=== PATIENT | female | born 1930 | race Caucasian/White ===

== ENCOUNTER 2017-02-22 16:11 | Emergency (ER) | payer OTHER ==
[~2017-02-22] VITALS: Ht 142.2 cm; Wt 53.0 kg
[~2017-02-22 16:11] MED LIST: CLC100 PO; FLX10 PO; FOLI1TAB7 PO; HYDR0.5T PO; LDDP5 TD; METO1TAB68 PO; OXYC1TAB3 PO; SNK PO
[2017-02-22 16:18] VITALS: TEMP 37; Ht 142.2 cm; Wt 53.0 kg
[2017-02-22] MEDS ORDERED: LEVO75TA5 PO (16:28)
[2017-02-22] MEDS ORDERED: METH2.5T PO (16:31)
[2017-02-22] MEDS ORDERED: OXYCODONE/ACETAMINOPHEN 5-325 TAB PO ONE (17:00)
[2017-02-22] MEDS ORDERED: GABA-112 PO (17:24)
[2017-02-22] MEDS ORDERED: HYDR200T5 PO (17:24)
[2017-02-22] MEDS ORDERED: MISC4CAP PO (17:24)
[2017-02-22] MEDS ORDERED: ACET-1256 PO (17:31)
[2017-02-22] MEDS ORDERED: TEMA7.5C13 PO (17:31)
[2017-02-22] MEDS ORDERED: SULF800T23 PO (17:31)
[2017-02-22] MEDS ORDERED: TPRSR/100 PO (17:31)
--- NOTE | 2017-02-22 17:33 | EMERGENCY ROOM VISIT NOTE ---
History Report prepared by [place]: Natalee Renae Under the Supervision of: Dr. Elfego Fernandes M.D. First contact with patient: 16:48 Chief Complaint: BACK PAIN Stated Complaint: BACK PAIN History of Present Illness The patient is an 86 year old female who presents to the Emergency Room with complaints of persistent lower back pain starting yesterday. The patient was bending over to vomit at the toilet. She almost fell head first, but was able to catch herself by holding onto the grab bar. She thinks that she might have injured her back. She currently rates her discomfort as a 10/10 in severity. She had a prior T5 and T6 compression fracture and deformity of T12 on March 09, 2016. The pain is in her lower back on both sides. The patient was diagnosed with a UTI 2 days ago and has been on Bactrim which was causing her nausea. She was given oxycodone 3 hours ago. She denies any abdominal pain or bowel movement changes. She has not been eating well for the past 3-4 days because of the nausea. She had a lesion on her nose frozen last week. Source of History: patient Onset: yesterday Position: back (lower) Symptom Intensity: 10/10 Quality: other (persistent) Timing: other (injury, pain) Associated Symptoms: + nausea, No abdominal pain Note: Pt denies changes in bowel movement. Review of Systems All systems have been listed, reviewed, and are negative other than those previously mentioned. Please see Additional Medical History Sheet. Past Medical & Surgical Medical Problems: (1) Diabetes (2) Dyslipidemia (3) Hypertension (4) Hypothyroidism (5) Intractable back pain (6) Thoracic compression fracture (7) UTI (urinary tract infection) Family History Cancer Diabetes mellitus Heart disease Hypertension Social History Smoking Status: Never Smoker Alcohol Use: none Drug Use: none Marital Status: Housing Status: assisted living Occupation Status: retired Current/Historical Medications Scheduled Folic Acid (Folvite), 1 MG PO TID Gabapentin (Neurontin), 100 MG PO TID Hydroxychloroquine Sulfate (Plaquenil), 200 MG PO BID Levothyroxine Sodium (Levothyroxine Sodium), 75 MCG PO DAILY Methotrexate (Methotrexate), 10 MG PO WK Metoprolol Succinate (Metoprolol Succinate ER), 100 MG PO DAILY Neomycin-Bacitracin Zn-Polymyx (Triple Antibiotic), 1 APPLN TOP Wound Care Probiotic Product (Align), 4 MG PO DAILY Sitagliptin Phosphate (Januvia), 100 MG PO DAILY Sulfa/Trimethoprim (Bactrim Ds 800MG/160MG), 1 TAB PO BID Temazepam (Temazepam), 7.5 MG PO QPM Scheduled PRN Acetaminophen (Tylenol), 500-1,000 MG PO BID PRN for Breakthrough Pain Artificial Saliva (Biotene Moisturizing Mout), 1 SPRAY OR UD PRN for Dryness Cyclobenzaprine Hcl (Flexeril), 5 MG PO TID PRN for Muscle Spasm Dextromethorphan-Guaifenesin (Diabetic Siltussin-Dm), 10 ML PO Q4H PRN for Cough Docusate Sodium (Docqlace), 100 MG PO DAILY PRN for Constipation Bnfyniwm-Bxehsgytgbtc-Eqbpwjkw (Artificial Tears), 1 DROP OP UD PRN for Dry Eye( s) Lidocaine (Lidocaine), 1 PATCH TOP DAILY PRN for Posthepetic Neuralgia Loperamide Hcl (Imodium), 2 MG PO TID PRN for Diarrhea Menthol-Methyl Salicylate (Chanel (Thera-Gesic), 1 APPLN TOP UD PRN for Soreness Nystatin (Topical) (Nystop), 1 APPLN TOP BID PRN for Antifungal Oxycodone HCl (Oxycodone HCl), 5 MG PO Q6H PRN for Pain Sennosides-Docusate Sodium (Sennalax-S), 2 TBS PO HS PRN for Constipation Allergies Coded Allergies: Amoxicillin (Unverified Allergy, Mild, RASH, 03/09/16) Naproxen (Unverified Allergy, Mild, RASH, 03/09/16) Physical Exam Vital Signs Date Time Temp Pulse Resp B/P (MAP) Pulse Ox O2 Delivery O2 Flow Rate FiO2 02/22/17 20:05 75 20 172/103 98 Room Air 02/22/17 18:11 76 18 194/95 90 Room Air 02/22/17 16:18 37.0 75 20 180/79 92 Room Air Physical Exam GENERAL: Patient awake, alert, oriented x 3. Patient follows commands. Patient does not appear toxic. Patient is adequately hydrated and well- nourished. SKIN: No erythema, pallor, cyanosis or rash HEENT: Normal head, pupils equal, reactive to light and accommodation. Small frozen lesion on the bridge of nose. Neck: Without adenopathy, no neck vein distention. LUNGS: Clear to auscultation. No wheezes, no rales, no rhonchi. HEART: No murmurs. No gallops. No rubs ABDOMEN: Soft, nontender. No masses, no rebound, no hepatomegaly or splenomegaly. BACK: Tenderness over the midlumbar spine. EXTREMITIES: SLR positive at 30 degrees on right. No signs of trauma. No pedal or pretibial edema. No calf or thigh tenderness. NEUROLOGIC: Cranial nerves II-XII within normal limits. No gross motor sensory function deficits. Medical Decision & Procedures ER Provider Diagnostic Interpretation: Radiology results as stated below per my review and radiologist interpretation: CT SCAN OF THE LUMBAR SPINE WITHOUT IV CONTRAST CLINICAL HISTORY: Fall. Back pain. COMPARISON STUDY: Abdominal CT dated 03/09/2016. TECHNIQUE: CT scan of the lumbar spine is performed from the lower thoracic spine to the sacrum. Images are reviewed in the axial, sagittal, and coronal planes. IV contrast was not administered for this examination. CT DOSE: 588.74 mGy.cm FINDINGS: The skeletal structures are osteopenic. A severe compression deformity of T12 is unchanged from previous. Fragments are retropulsed by up to 6 mm. This causes mild acquired compromise of the central canal at this level. There is a minimal inferior endplate compression deformity of L4. No retropulsed fragments are identified and there is only minimal loss of height. No additional acute fracture is seen. Vertebral body height is otherwise maintained throughout the lumbar spine. Alignment is preserved. The transverse and spinous processes appear intact. There is no evidence of spondylolysis. The intervertebral disc spaces appear maintained. There is no evidence of large disc herniation. Minimal facet arthropathy seen in the lower lumbar region. The visualized sacrum and bony pelvis appear intact. There is fatty atrophy of the paraspinous musculature. Moderate to advanced calcification is noted in the abdominal aorta. The heart is enlarged. The kidneys demonstrate cortical atrophy. IMPRESSION: 1. There is a mild acute inferior endplate compression fracture of L4. There is only minimal loss of height. No retropulsed fragments are identified. 2. No additional acute fracture is seen. 3. A severe chronic compression deformity of T12 is unchanged from previous. 4. Osteopenia and minimal degenerative change as above. Electronically signed by: Heath Blakely M.D. 02/22/2017 5:56 PM Dictated Date/Time: 02/22/2017 5:50 PM Laboratory Results 02/22/17 20:01 02/22/17 20:01 Test 02/22/17 18:05 02/22/17 20:01 Urine Color YELLOW Urine Appearance CLEAR (CLEAR) Urine pH 7.0 (4.5-7.5) Urine Specific Geraldine 1.010 (1.000-1.030) Urine Protein NEG (NEG) Urine Glucose (UA) NEG (NEG) Urine Ketones NEG (NEG) Urine Occult Blood NEG (NEG) Urine Nitrite NEG (NEG) Urine Bilirubin NEG (NEG) Urine Urobilinogen NEG (NEG) Urine Leukocyte Esterase NEG (NEG) Red Blood Count 4.14 M/uL (4.2-5.4) Mean Corpuscular Volume 90.8 fL (80-100) Mean Corpuscular Hemoglobin 31.6 pg (25-34) Mean Corpuscular Hemoglobin Concent 34.8 g/dl (32-36) RDW Standard Deviation 48.2 fL (36.4-46.3) RDW Coefficient of Variation 14.8 % (11.5-14.5) Mean Platelet Volume 12.0 fL (7.4-10.4) Platelet Estimate DECREASED Anion Gap 8.0 mmol/L (3-11) Est Creatinine Clear Calc Drug Dose 28.4 ml/min Estimated GFR () 59.9 Estimated GFR (Non- 51.7 BUN/Creatinine Ratio 12.3 (10-20) Calcium Level 8.9 mg/dl (8.5-10.1) Laboratory results as stated above per my review. Medications Administered Medications (Trade) Dose Ordered Sig/Alejandra Route Start Time Stop Time Status Last Admin Dose Admin Oxycodone/ Acetaminophen (Percocet 5-325mg Tab) 1 tab ONE ONCE PO 02/22/17 17:00 02/22/17 17:01 DC 02/22/17 17:12 1 TAB ED Course 1649: Past medical records reviewed. The patient was evaluated in room B7. A complete history and physical examination was performed. 1700: Oxycodone/Acetaminophen 1 tab PO. 1826: I reevaluated the patient. I updated the family on the results. I discussed the results and treatment plan with them. They verbalized understanding and agreement. They request the patient be placed in [facility]. The continuous pillowcase cutter has been notified. 1840: [facility] requests lab work be completed. 2030: The patient will be transferred to [facility] for further care. Medical Decision Nurses notes reviewed. Medical history sheet reviewed. Differential diagnosis includes but is not limited to: musculoskeletal pain, fracture, dislocation, degenerative joint disease. The patient is here with pain similar to what she experienced in the past with fractures of her thoracic spine. CT today reveals a new fracture of L4. The patient has a pre-existing fracture of T12. I discussed care with the patient and her daughter. Her daughter does not believe that she can care for herself at the current assisted living situation. The patient was agreeable to admission at [facility]. Labs were obtained. Please see above. The patient was transported to [facility] after their acceptance. Medication Reconciliation: I attest that I have personally reviewed the patient' s current medication list. Blood Pressure Screening: Patient was found to have an elevated blood pressure and was referred to their primary doctor for recheck and further treatment. Impression Primary Impression: Compression fracture of L4 lumbar vertebra Scribe Attestation The scribe's documentation has been prepared under my direction and personally reviewed by me in its entirety. I confirm that the note above accurately reflects all work, treatment, procedures, and medical decision making performed by me. Departure Information Dispostion Transfer Acute Care Facility Referrals Keron Merino M.D. (PCP) Patient Instructions My [facility]
[2017-02-22] MEDS ORDERED: DOCU100C22 PO (17:39)
[2017-02-22] MEDS ORDERED: CYCL5TAB PO (17:39)
[2017-02-22] MEDS ORDERED: GLYCDRO6 OP (17:39)
[2017-02-22] MEDS ORDERED: LIDO1PAD2 TOP (17:47)
[2017-02-22] MEDS ORDERED: DEXTLIQ PO (17:47)
[2017-02-22] MEDS ORDERED: IMD/2 PO (17:47)
[2017-02-22] MEDS ORDERED: ARTISPR OR (17:47)
[2017-02-22] MEDS ORDERED: NYST100010 TOP (17:51)
[2017-02-22] MEDS ORDERED: OXYC-609 PO (17:51)
[2017-02-22] MEDS ORDERED: SENN8.6T15 PO (17:54)
[2017-02-22] MEDS ORDERED: LINICRE TOP (17:54)
[2017-02-22] MEDS ORDERED: NEOMOIN76 TOP (17:54)
--- NOTE | 2017-02-22 17:58 | DIAGNOSTIC IMAGING REPORT ---
CT SCAN OF THE LUMBAR SPINE WITHOUT IV CONTRAST CLINICAL HISTORY: Fall. Back pain. COMPARISON STUDY: Abdominal CT dated 03/09/2016. TECHNIQUE: CT scan of the lumbar spine is performed from the lower thoracic spine to the sacrum. Images are reviewed in the axial, sagittal, and coronal planes. IV contrast was not administered for this examination. CT DOSE: 588.74 mGy.cm FINDINGS: The skeletal structures are osteopenic. A severe compression deformity of T12 is unchanged from previous. Fragments are retropulsed by up to 6 mm. This causes mild acquired compromise of the central canal at this level. There is a minimal inferior endplate compression deformity of L4. No retropulsed fragments are identified and there is only minimal loss of height. No additional acute fracture is seen. Vertebral body height is otherwise maintained throughout the lumbar spine. Alignment is preserved. The transverse and spinous processes appear intact. There is no evidence of spondylolysis. The intervertebral disc spaces appear maintained. There is no evidence of large disc herniation. Minimal facet arthropathy seen in the lower lumbar region. The visualized sacrum and bony pelvis appear intact. There is fatty atrophy of the paraspinous musculature. Moderate to advanced calcification is noted in the abdominal aorta. The heart is enlarged. The kidneys demonstrate cortical atrophy. IMPRESSION: 1. There is a mild acute inferior endplate compression fracture of L4. There is only minimal loss of height. No retropulsed fragments are identified. 2. No additional acute fracture is seen. 3. A severe chronic compression deformity of T12 is unchanged from previous. 4. Osteopenia and minimal degenerative change as above. Electronically signed by: Heath Blakely M.D. 02/22/2017 5:56 PM Dictated Date/Time: 02/22/2017 5:50 PM
[2017-02-22 18:21] LABS: URINE APPEARANCE CLEAR (CLEAR); URINE BILIRUBIN NEG (NEG); URINE COLOR YELLOW; URINE NITRITE NEG (NEG); UROBILINOGEN NEG (NEG); ZZURINE CULT IF INDIC CATH NO
[2017-02-22 18:22] LABS: MANUAL MICROSCOPIC REQUIRED? NO; REVIEW REQ? NO
[2017-02-22 20:05] VITALS: BP 172/103; PULSE 75; O2SAT 98
[2017-02-22 20:33] LABS: BUN/CREATININE RATIO 12.3 (10-20); CALCIUM 8.9 mg/dl (8.5-10.1); POTASSIUM 4.1 mmol/L (3.5-5.1)
[2017-02-22 20:41] LABS: HEMATOCRIT 37.6 % (37-47); MEAN CELL VOLUME 90.8 fL (80-100); MEAN CORPUSCULAR HEMOGLOBIN 31.6 pg (25-34); MEAN CORPUSCULAR HGB CONC 34.8 g/dl (32-36); PLATELET COUNT 108 K/uL (130-400); PLT ESTIMATE DECREASED; RED BLOOD COUNT 4.14 M/uL (4.2-5.4); WHITE BLOOD COUNT 9.55 K/uL (4.8-10.8)
[2017-02-22] MEDS ORDERED: SITA100T3 PO (20:55)
[2017-03-27] MEDS ORDERED: CALCTAB7 PO (11:04)
[2017-03-27] MEDS ORDERED: INSDGIPEN SC (11:04)
[2017-03-27] MEDS ORDERED: OXYC-609 PO (11:04)
[2017-03-27] MEDS ORDERED: ASPEC81 PO (11:04)
[2017-03-27] MEDS ORDERED: RXC5 PO (11:34)
== END 2017-02-22 21:00 | disposition short-term general hospital (02) ==
LOC: C.EDB 16:11
DX: S32.049A Unspecified fracture of fourth lumbar vertebra, initial encounter for closed fracture (principal); X58.XXXA Exposure to other specified factors, initial encounter; E11.9 Type 2 diabetes mellitus without complications; I10 Essential (primary) hypertension; E03.9 Hypothyroidism, unspecified; Z87.81 Personal history of (healed) traumatic fracture; N39.0 Urinary tract infection, site not specified; Z79.899 Other long term (current) drug therapy; Z88.1 Allergy status to other antibiotic agents; Z88.8 Allergy status to other drugs, medicaments and biological substances; Z80.9 Family history of malignant neoplasm, unspecified; Z83.3 Family history of diabetes mellitus; Z82.49 Family history of ischemic heart disease and other diseases of the circulatory system

== ENCOUNTER 2017-03-23 17:38 | Inpatient (IN) | payer OTHER ==
[~2017-03-23] VITALS: Ht 142.2 cm; Wt 53.3 kg
[~2017-03-23 17:38] MED LIST changes: +ACET-1256 PO; +ARTISPR OR; -CLC100 PO; +CYCL5TAB PO; +DEXTLIQ PO; +DOCU100C22 PO; -FLX10 PO; +GABA-112 PO; +GLYCDRO6 OP; -HYDR0.5T PO; +HYDR200T5 PO; +IMD/2 PO; -LDDP5 TD; +LEVO75TA5 PO; +LIDO1PAD2 TOP; +LINICRE TOP; +METH2.5T PO; -METO1TAB68 PO; +MISC4CAP PO; +NEOMOIN76 TOP; +NYST100010 TOP; +OXYC-609 PO; -OXYC1TAB3 PO; +SENN8.6T15 PO; +SITA100T3 PO; -SNK PO; +SULF800T23 PO; +TEMA7.5C13 PO; +TPRSR/100 PO
[2017-03-23] MEDS ORDERED: CZR25 PO (17:59)
[2017-03-23] MEDS ORDERED: MRLP527 PO (17:59)
[2017-03-23] MEDS ORDERED: ONDANSETRON INJ 2 MG/ML 2 ML VIAL IV STA (18:15)
[2017-03-23] MEDS: HYDROmorphone INJ 0.5 MG/0.5 ML SYR IV PRN ×2 (18:22→19:53)
--- NOTE | 2017-03-23 19:01 | DIAGNOSTIC IMAGING REPORT ---
CHEST ONE VIEW PORTABLE CLINICAL HISTORY: Trauma trauma COMPARISON STUDY: 03/09/2016 FINDINGS: Mild cardiomegaly. Lungs are clear. Deformity left humeral head considered old. IMPRESSION: No acute process. The above report was generated using voice recognition software. It may contain grammatical, syntax or spelling errors. Electronically signed by: Tommy Ness M.D. 03/23/2017 7:00 PM Dictated Date/Time: 03/23/2017 6:59 PM
--- NOTE | 2017-03-23 19:05 | DIAGNOSTIC IMAGING REPORT ---
LEFT TIBIA AND FIBULA 2 VIEWS CLINICAL HISTORY: Left leg deformity. FINDINGS: AP and crosstable lateral portable views of the left tibia and fibula are obtained. No prior studies are available for comparison at the time of dictation. The examination is performed through a splint, obscuring fine bony detail. The skeletal structures are osteopenic. There is a fracture through the fibular head with medial distraction of the distal fragment by approximately 8 mm. There is a comminuted and horizontally oriented fracture through the proximal tibial metaphysis. There is approximately 4 mm of medial offset of the distal fragment as well as mild apex volar angulation. There is no clear intra-articular extension. Overlying soft tissue edema is noted. The knee and ankle joints are grossly maintained. There is a large plantar calcaneal enthesophyte. IMPRESSION: Proximal tibial and fibular fractures as above with overlying soft tissue edema. Electronically signed by: Heath Blakely M.D. 03/23/2017 7:03 PM Dictated Date/Time: 03/23/2017 7:00 PM
[2017-03-23 19:24] LABS: BASO % 0.2 %; BASO ABS # 0.02 K/uL (0-0.2); COMPLETE YES; EOS % 1.1 %; HEMATOCRIT 40.8 % (37-47); IG% 0.4 %; LYMPH % 11.3 %; LYMPH ABS # 1.19 K/uL (1.2-3.4); MEAN CELL VOLUME 93.8 fL (80-100); MEAN CORPUSCULAR HEMOGLOBIN 31.5 pg (25-34); MEAN CORPUSCULAR HGB CONC 33.6 g/dl (32-36); MEAN PLATELET VOLUME 11.8 fL (7.4-10.4); MONO % 7.3 %; NEUT % 79.7 %; PLATELET COUNT 170 K/uL (130-400); RED BLOOD COUNT 4.35 M/uL (4.2-5.4); WHITE BLOOD COUNT 10.56 K/uL (4.8-10.8)
[2017-03-23 19:41] LABS: PROTHROMBIN TIME (PATIENT) 10.7 SECONDS (9.0-12.0)
[2017-03-23 19:47] LABS: BUN/CREATININE RATIO 18.1 (10-20); CALCIUM 9.1 mg/dl (8.5-10.1); POTASSIUM 4.7 mmol/L (3.5-5.1)
[2017-03-23] MEDS ORDERED: NIFE30TA83 PO (20:27)
[2017-03-23] MEDS ORDERED: HYZ/50125 PO (20:27)
--- NOTE | 2017-03-23 20:46 | History and Physical ---
History & Physical Date & Time of Service: Mar 23, 2017 at 20:32 Chief Complaint: Fall/Lt. Leg Deformity Primary Care Physician: Sarah Robert PA-C History of Present Illness Source: patient, family This patient is an 86-year-old female that presented to the emergency department by ambulance after sustaining a fall at her primary care physician's office today. The patient tripped on the sidewalk falling and landing on her left leg. She is noted to have a proximal tubular/fibula fracture. Orthopedics was consulted. It was recommended that she proceed with surgery pending medical clearance. The patient currently is rating her pain a 5/10. She denies any recent chest pain, pressure or shortness of breath with mild exertion that she is able to perform. She denies any known history of coronary artery disease. She denies any previous consultations from surgery. The patient does have a history of chronic back pain. She reports having 4 compression fractures, her most recent was approximately 3 weeks ago. These are being medically managed. Past Medical/Surgical History Medical Problems: (1) Diabetes Status: Chronic (2) Dyslipidemia Status: Chronic (3) Hypertension Status: Chronic (4) Hypothyroidism Status: Chronic Rheumatoid arthritis Right ankle surgery approximately 15 years ago Family History Cancer Diabetes mellitus Heart disease Hypertension Social History Smoking Status: Never Smoker Drug Use: none Marital Status: Housing status: assisted living Occupational Status: retired Immunizations History of Influenza Vaccine: Yes Influenza Vaccine Date: May 01, 2012 History of Tetanus Vaccine?: No History of Pneumococcal: Yes Pneumococcal Date: May 01, 2012 History of Hepatitis B Vaccine: No Multi-Drug Resistant Organisms History of MDRO: No Allergies Coded Allergies: Amoxicillin (Unverified Allergy, Mild, RASH, 03/23/17) Naproxen (Unverified Allergy, Mild, RASH, 03/23/17) Home Medications Scheduled Folic Acid (Folvite), 1 MG PO TID Gabapentin (Neurontin), 100 MG PO TID Hctz/Losartan (Hyzaar 12.5MG/50MG), 1 TAB PO DAILY Hydroxychloroquine Sulfate (Plaquenil), 200 MG PO BID Levothyroxine Sodium (Levothyroxine Sodium), 75 MCG PO DAILY Methotrexate (Methotrexate), 10 MG PO WK Metoprolol Succinate (Metoprolol Succinate ER), 100 MG PO DAILY Neomycin-Bacitracin Zn-Polymyx (Triple Antibiotic), 1 APPLN TOP Wound Care Nifedipine Ext Rel (Procardia Xl Ext Rel), 30 MG PO DAILY Polyethylene (Polyethylene Glycol 3350), 1 DOSE PO Q2D Probiotic Product (Align), 4 MG PO DAILY Sitagliptin Phosphate (Januvia), 100 MG PO DAILY Temazepam (Temazepam), 7.5 MG PO QPM Scheduled PRN Acetaminophen (Tylenol), 500-1,000 MG PO BID PRN for Breakthrough Pain Artificial Saliva (Biotene Moisturizing Mout), 1 SPRAY OR UD PRN for Dryness Cyclobenzaprine Hcl (Flexeril), 5 MG PO TID PRN for Muscle Spasm Docusate Sodium (Docqlace), 100 MG PO DAILY PRN for Constipation Ntldvyab-Ppybgopvyuin-Jyxdlfxz (Artificial Tears), 1 DROP OP UD PRN for Dry Eye( s) Lidocaine (Lidocaine), 1 PATCH TOP DAILY PRN for Posthepetic Neuralgia Loperamide Hcl (Imodium), 2 MG PO TID PRN for Diarrhea Menthol-Methyl Salicylate (Chanel (Thera-Gesic), 1 APPLN TOP UD PRN for Soreness Oxycodone HCl (Oxycodone HCl), 5 MG PO Q4H PRN for Pain Sennosides-Docusate Sodium (Sennalax-S), 2 TBS PO HS PRN for Constipation Review of Systems 10 system review performed and negative unless noted in HPI or below Physical Exam Vital Signs Date Time Temp Pulse Resp B/P (MAP) Pulse Ox O2 Delivery O2 Flow Rate FiO2 03/23/17 20:04 95 Room Air 03/23/17 17:56 36.8 67 18 177/79 93 Room Air General Appearance: no apparent distress Head: normocephalic Eyes: EOMI Neck: no JVD Respiratory/Chest: lungs clear Cardiovascular: regular rate, rhythm, no murmur Abdomen/GI: normal bowel sounds, soft Extremities/Musculoskelatal: + pertinent finding (no pitting edema noted in the right lower extremity. Splint is placed on left lower extremity. Sensation toes is intact.) Neurologic/Psych: oriented x 3 Skin: warm/dry Diagnostics Laboratory Results Results Past 24 Hours Test 03/23/17 19:10 Range/Units White Blood Count 10.56 4.8-10.8 K/uL Red Blood Count 4.35 4.2-5.4 M/uL Hemoglobin 13.7 12.0-16.0 g/dL Hematocrit 40.8 37-47 % Mean Corpuscular Volume 93.8 80-100 fL Mean Corpuscular Hemoglobin 31.5 25-34 pg Mean Corpuscular Hemoglobin Concent 33.6 32-36 g/dl Platelet Count 170 130-400 K/uL Mean Platelet Volume 11.8 7.4-10.4 fL Neutrophils (%) (Auto) 79.7 % Lymphocytes (%) (Auto) 11.3 % Monocytes (%) (Auto) 7.3 % Eosinophils (%) (Auto) 1.1 % Basophils (%) (Auto) 0.2 % Neutrophils # (Auto) 8.42 1.4-6.5 K/uL Lymphocytes # (Auto) 1.19 1.2-3.4 K/uL Monocytes # (Auto) 0.77 0.11-0.59 K/uL Eosinophils # (Auto) 0.12 0-0.5 K/uL Basophils # (Auto) 0.02 0-0.2 K/uL RDW Standard Deviation 50.5 36.4-46.3 fL RDW Coefficient of Variation 14.9 11.5-14.5 % Immature Granulocyte % (Auto) 0.4 % Immature Granulocyte # (Auto) 0.04 0.00-0.02 K/uL Prothrombin Time 10.7 9.0-12.0 SECONDS Prothromb Time International Ratio 1.0 0.9-1.1 Activated Partial Thromboplast Time 26.3 21.0-31.0 SECONDS Partial Thromboplastin Ratio 1.0 Sodium Level 136 136-145 mmol/L Potassium Level 4.7 3.5-5.1 mmol/L Chloride Level 101 98-107 mmol/L Carbon Dioxide Level 30 21-32 mmol/L Anion Gap 5.0 3-11 mmol/L Blood Urea Nitrogen 18 7-18 mg/dl Creatinine 1.00 0.60-1.20 mg/dl Est Creatinine Clear Calc Drug Dose 28.5 ml/min Estimated GFR () 59.9 Estimated GFR (Non- 51.7 BUN/Creatinine Ratio 18.1 10-20 Random Glucose 146 70-99 mg/dl Calcium Level 9.1 8.5-10.1 mg/dl Diagnostic Radiology IMPRESSION: Proximal tibial and fibular fractures as above with overlying soft tissue edema. Electronically signed by: Heath Blakely M.D. 03/23/2017 7:03 PM CHEST ONE VIEW PORTABLE CLINICAL HISTORY: Trauma trauma COMPARISON STUDY: 03/09/2016 FINDINGS: Mild cardiomegaly. Lungs are clear. Deformity left humeral head considered old. IMPRESSION: No acute process. EKG normal sinus rhythm 64 bpm Early repolarization noted Decreased rate, otherwise unchanged from previous EKG Impression Assessment and Plan 86-year-old female presented to the emergency department with left leg pain, tip /fib fracture after a mechanical fall. The patient is a a 0.4 risk of major cardiac events per the RCRI scale. No further cardiac workup is deemed necessary. Patient is also at low risk of apneic events per STOP-BANG scale. Recommend proceeding with surgery in the a.m. -Admit to medical floor -NPO after midnight -Morphine 2 mg IV every 2 hours as needed for pain -Bedrest for now -Insert [place] -Recommend adequate hydration postoperatively -Incentive spirometer -PT/OT -Patient will likely need rehabilitation postoperatively HTN -Continue Toprol XL 100 mg daily, Nifedipine XL 30 mg daily -Hold losartan for now -Hydralazine 10 mg IV q 6 hr PRN Diabetes mellitus -Hold patient's home dose of Januvia 100 mg daily -NovoLog insulin sliding scale Hypothyroidism -continue Synthroid 75 mcg daily DVT prophylaxis -Begin chemical means of prophylaxis when okay with orthopedics -TEDS, SCDs to R leg CODE STATUS -CPR ok -NO INTUBATION Resident Physician Supervision Note: I was present Mariza COCHRAN during the history and exam. I discussed the case with the PA and agree with the findings and plan as documented in the note. Any exceptions or clarifications are listed here: 86 y/o F Hx HTN admitted with proximal tib/fib fracture OE AAO x 3 S1,2 R CTAB NT, ND, BS+ No CCE P: Pt screened for surgical intervention - agree with above risk assessment and optimization Orthopedics notified Above discussed with pt and PA Documented By: Jung Fairbanks Level of Care Med/Surg Resuscitation Status FULL NO MECH VENTILATION VTE Prophylaxis VTE Risk Assessment Done? Y/N: Yes Risk Level: Moderate Given or contraindicated: T.E.D. Stockings, SCD's, Contraindicated
[2017-03-23] MEDS ORDERED: ONDANSETRON INJ 2 MG/ML 2 ML VIAL IV PRN (21:00)
[2017-03-23] MEDS ORDERED: LIDODERM (LIDOCAINE) PATCH 5% TD PRN (21:00)
[2017-03-23] MEDS ORDERED: INSULIN ASPART 100 UNITS/ML 3 ML PEN SC SCH (21:00)
[2017-03-23] MEDS ORDERED: MAGNESIUM HYDROXIDE SUSP 30 ML UDC PO PRN (21:00)
[2017-03-23] MEDS ORDERED: HydrALAZINE HCL 20 MG/ML VIAL IV. PRN (21:00)
[2017-03-23] MEDS ORDERED: ALUMINUM/MAGNESIUM/SIMETH (MAALOX MAX) 30 ML UDC PO PRN (21:00)
[2017-03-23] MEDS ORDERED: ACETAMINOPHEN 325 MG TAB PO PRN (21:00)
[2017-03-23] MEDS ORDERED: POLYETHYLENE (MIRALAX) 17 GM PACK PO PRN (21:15)
[2017-03-23] MEDS ORDERED: GLUCAGON FOR INJ 1 MG VIAL SQ PRN (21:30)
[2017-03-23] MEDS ORDERED: GLUCOSE 10 TABS/TUBE PO PRN (21:30)
[2017-03-23] MEDS ORDERED: DEXTROSE 50% 50 ML SYR IV PRN (21:30)
[2017-03-23] MEDS ORDERED: GLUCOSE 40% GEL 15 GM TUBE PO PRN (21:30)
[2017-03-23 21:56] VITALS: BP 155/66; PULSE 69; TEMP 36.4; Ht 142.2 cm; Wt 53.3 kg
--- NOTE | 2017-03-23 22:05 | EMERGENCY ROOM VISIT NOTE ---
History Report prepared by [place]: Sahil Mathias Under the Supervision of: Dr. Grover Weiner M.D. First contact with patient: 17:42 Chief Complaint: LEG PAIN,LEG INJURY Stated Complaint: FALL/LT. LEG DEFORMITY History of Present Illness The patient is a 86 year old female who presents to the Emergency Room via ALS with complaints of left leg pain that began [employer]. She rates her pain a 10/10 in severity. At this time, she was leaving her doctor's office when she stubbed her toe on the sidewalk and fell to the ground. Her grandson caught her part way , but she still hit the ground. She did not hit her head or lose consciousness. She received 100 mcg of Fentanyl en route. She has a past medical history of a broken back three different times and osteoporosis. She recently had back surgery to repair and break. She is having some back pain as well. Pt denies LOC , headache, fevers, chills, diaphoresis, visual changes, neck pain, chest pain, breathing difficulties, nausea, vomiting, abdominal pain, melena, hematochezia, urinary symptoms, numbness, weakness, lymphadenopathy, rash, or other complaints. Source of History: patient Onset: A[employer] CUST[employer]IAN Position: leg (left) Symptom Intensity: 10/10 Quality: sharp Timing: constant Associated Symptoms: + back pain Review of Systems See HPI for pertinent positives and negatives. A total of ten systems were reviewed and were otherwise negative. Past Medical & Surgical Medical Problems: (1) Diabetes (2) Dyslipidemia (3) Hypertension (4) Hypothyroidism (5) Intractable back pain (6) Thoracic compression fracture (7) Tibia/fibula fracture (8) UTI (urinary tract infection) Family History Cancer Diabetes mellitus Heart disease Hypertension Social History Smoking Status: Never Smoker Alcohol Use: none Drug Use: none Marital Status: Housing Status: assisted living Occupation Status: retired Current/Historical Medications Scheduled Folic Acid (Folvite), 1 MG PO TID Gabapentin (Neurontin), 100 MG PO TID Hctz/Losartan (Hyzaar 12.5MG/50MG), 1 TAB PO DAILY Hydroxychloroquine Sulfate (Plaquenil), 200 MG PO BID Levothyroxine Sodium (Levothyroxine Sodium), 75 MCG PO DAILY Methotrexate (Methotrexate), 10 MG PO WK Metoprolol Succinate (Metoprolol Succinate ER), 100 MG PO DAILY Neomycin-Bacitracin Zn-Polymyx (Triple Antibiotic), 1 APPLN TOP Wound Care Nifedipine Ext Rel (Procardia Xl Ext Rel), 30 MG PO DAILY Polyethylene (Polyethylene Glycol 3350), 1 DOSE PO Q2D Probiotic Product (Align), 4 MG PO DAILY Sitagliptin Phosphate (Januvia), 100 MG PO DAILY Temazepam (Temazepam), 7.5 MG PO QPM Scheduled PRN Acetaminophen (Tylenol), 500-1,000 MG PO BID PRN for Breakthrough Pain Artificial Saliva (Biotene Moisturizing Mout), 1 SPRAY OR UD PRN for Dryness Cyclobenzaprine Hcl (Flexeril), 5 MG PO TID PRN for Muscle Spasm Docusate Sodium (Docqlace), 100 MG PO DAILY PRN for Constipation Cwdvsdgi-Hdufvuiaxqvp-Oqfiamth (Artificial Tears), 1 DROP OP UD PRN for Dry Eye( s) Lidocaine (Lidocaine), 1 PATCH TOP DAILY PRN for Posthepetic Neuralgia Loperamide Hcl (Imodium), 2 MG PO TID PRN for Diarrhea Menthol-Methyl Salicylate (Chanel (Thera-Gesic), 1 APPLN TOP UD PRN for Soreness Oxycodone HCl (Oxycodone HCl), 5 MG PO Q4H PRN for Pain Sennosides-Docusate Sodium (Sennalax-S), 2 TBS PO HS PRN for Constipation Allergies Coded Allergies: Amoxicillin (Unverified Allergy, Mild, RASH, 03/23/17) Naproxen (Unverified Allergy, Mild, RASH, 03/23/17) Physical Exam Vital Signs Date Time Temp Pulse Resp B/P (MAP) Pulse Ox O2 Delivery O2 Flow Rate FiO2 03/23/17 20:04 95 Room Air 03/23/17 17:56 36.8 67 18 177/79 93 Room Air Physical Exam GENERAL: Awake, alert, uncomfortable appearing, mild distress HEAD: Normocephalic, atraumatic. No morales sign. No raccoon eyes. EYES: Normal conjunctiva. PERRL. EARS: External ears normal. Right TM normal. Left TM normal. NOSE: Atraumatic OROPHARYNX: Lips, tongue, and mucosa unremarkable. No erythema or exudate. NECK: No tracheal deviation or JVD. No posterior midline tenderness. No step offs noted. RESPIRATORY: CTA bilaterally CARDIAC: Regular rate, normal rhythm. ABDOMEN: Inspection reveals no abnormalities. Soft, non distended. No tenderness to palpation. No hernias. BACK: No midline step offs or tenderness to palpation. Unremarkable. PELVIS: Stable to rock. SKIN: Normal. LYMPH: No adenopathy. MUSCULOSKELETAL: Old appearing bruise on the left forearm. Proximal left lower leg has swelling, deformity, and tenderness. NEURO: GCS 15. Normal sensorium. No sensory or motor deficits noted. Medical Decision & Procedures ER Provider Diagnostic Interpretation: Radiology results as stated below per my review and radiologist interpretation: LEFT TIBIA AND FIBULA 2 VIEWS CLINICAL HISTORY: Left leg deformity. FINDINGS: AP and crosstable lateral portable views of the left tibia and fibula are obtained. No prior studies are available for comparison at the time of dictation. The examination is performed through a splint, obscuring fine bony detail. The skeletal structures are osteopenic. There is a fracture through the fibular head with medial distraction of the distal fragment by approximately 8 mm. There is a comminuted and horizontally oriented fracture through the proximal tibial metaphysis. There is approximately 4 mm of medial offset of the distal fragment as well as mild apex volar angulation. There is no clear intra-articular extension. Overlying soft tissue edema is noted. The knee and ankle joints are grossly maintained. There is a large plantar calcaneal enthesophyte. IMPRESSION: Proximal tibial and fibular fractures as above with overlying soft tissue edema. Electronically signed by: Heath Blakely M.D. 03/23/2017 7:03 PM Dictated Date/Time: 03/23/2017 7:00 PM CHEST ONE VIEW PORTABLE CLINICAL HISTORY: Trauma trauma COMPARISON STUDY: 03/09/2016 FINDINGS: Mild cardiomegaly. Lungs are clear. Deformity left humeral head considered old. IMPRESSION: No acute process. The above report was generated using voice recognition software. It may contain grammatical, syntax or spelling errors. Electronically signed by: Tommy Ness M.D. 03/23/2017 7:00 PM Dictated Date/Time: 03/23/2017 6:59 PM Laboratory Results 03/23/17 19:10 Red Blood Count 4.35, Mean Corpuscular Volume 93.8, Mean Corpuscular Hemoglobin 31.5, Mean Corpuscular Hemoglobin Concent 33.6, Mean Platelet Volume 11.8, Neutrophils (%) (Auto) 79.7, Lymphocytes (%) (Auto) 11.3, Monocytes (%) (Auto) 7.3, Eosinophils (%) (Auto) 1.1, Basophils (%) (Auto) 0.2, Neutrophils # (Auto) 8.42, Lymphocytes # (Auto) 1.19, Monocytes # (Auto) 0.77, Eosinophils # (Auto) 0.12, Basophils # (Auto) 0.02 03/23/17 19:10 Test 03/23/17 19:10 White Blood Count 10.56 K/uL (4.8-10.8) Red Blood Count 4.35 M/uL (4.2-5.4) Hemoglobin 13.7 g/dL (12.0-16.0) Hematocrit 40.8 % (37-47) Mean Corpuscular Volume 93.8 fL (80-100) Mean Corpuscular Hemoglobin 31.5 pg (25-34) Mean Corpuscular Hemoglobin Concent 33.6 g/dl (32-36) Platelet Count 170 K/uL (130-400) Mean Platelet Volume 11.8 fL (7.4-10.4) Neutrophils (%) (Auto) 79.7 % Lymphocytes (%) (Auto) 11.3 % Monocytes (%) (Auto) 7.3 % Eosinophils (%) (Auto) 1.1 % Basophils (%) (Auto) 0.2 % Neutrophils # (Auto) 8.42 K/uL (1.4-6.5) Lymphocytes # (Auto) 1.19 K/uL (1.2-3.4) Monocytes # (Auto) 0.77 K/uL (0.11-0.59) Eosinophils # (Auto) 0.12 K/uL (0-0.5) Basophils # (Auto) 0.02 K/uL (0-0.2) RDW Standard Deviation 50.5 fL (36.4-46.3) RDW Coefficient of Variation 14.9 % (11.5-14.5) Immature Granulocyte % (Auto) 0.4 % Immature Granulocyte # (Auto) 0.04 K/uL (0.00-0.02) Prothrombin Time 10.7 SECONDS (9.0-12.0) Prothromb Time International Ratio 1.0 (0.9-1.1) Activated Partial Thromboplast Time 26.3 SECONDS (21.0-31.0) Partial Thromboplastin Ratio 1.0 Anion Gap 5.0 mmol/L (3-11) Est Creatinine Clear Calc Drug Dose 28.5 ml/min Estimated GFR () 59.9 Estimated GFR (Non- 51.7 BUN/Creatinine Ratio 18.1 (10-20) Calcium Level 9.1 mg/dl (8.5-10.1) Laboratory results reviewed by me Medications Administered Medications (Trade) Dose Ordered Sig/Alejandra Route Start Time Stop Time Status Last Admin Dose Admin Ondansetron HCl (Zofran Inj) 4 mg NOW STAT IV 03/23/17 18:15 03/23/17 18:17 DC 03/23/17 18:21 4 MG Hydromorphone HCl (Dilaudid Inj) 0.5 mg Q15M PRN IV 03/23/17 18:15 03/23/17 21:16 DC 03/23/17 19:53 0.5 MG Procedure Splinting Indication: Fracture Verbal consent obtained. Risks and benefits were explained with the usual customary discussion. The injured extremity was identified. The patient was prepped and measured for the placement of a posterior ortho-glass splint. Splint applied in the standard fashion over a layer of webril and secured using an elastic bandage. Set into a position of function. Normal neurovascular status after placement verified by me. The patient tolerated the procedure well and the care of the splint was discussed with the patient/family. No complications. ECG Indication: other (Trauma) Rate (beats per minute): 64 Rhythm: normal sinus Findings: other (Left ventricular hypertrophy, with repolarization) ED Course 1741: The patient was evaluated in room C11B. A complete history and physical exam was performed. 1813: I performed a splinting procedure at this time. Please see the procedure note for more information. 1814: Ordered Dilaudid inj 0.5 mg IV, Zofran Inj 4 mg IV 1948: Upon reexamination, the patient was resting. I discussed the test results and treatment plan with her. The patient will be evaluated by Dr. Magdi ESCALANTE, for further management. 2014: Ordered Morphine Sulfate 2 mg IV. Medical Decision Triage Nursing notes reviewed. The patient's presentation and history were concerning for a leg injury. Etiologies such as soft tissue injury, fracture, dislocation, neurovascular compromise, compartment syndrome, as well as others were entertained. The patient was evaluated. She had an obvious deformity to the left lower leg. This was splinted by me as above. The x-rays revealed a proximal tibia and fibula fracture. Her blood work was unremarkable. The patient was given Dilaudid and Zofran for symptom control. I did discuss the case with Dr. Francois of orthopedics. He evaluated the patient. He asked the patient be admitted to the internal medicine service and remain nothing by mouth. I did discuss the case with Dr. Fairbanks . The patient was evaluated by the internal medicine team and admitted for further management. Head Trauma GCS Score: 15 Medication Reconcilliation Current Medication List: was personally reviewed by me Blood Pressure Screening Patient's blood pressure: Elevated blood pressure Blood pressure disposition: Elevated BP felt to be situational Consults Time Called: 1944 Consulting Physician: Dr. Fair[place] - [facility] [place] Call: 1948 Discussed the patient's case. The patient will be evaluated for further treatment and disposition. Impression Primary Impression: Left tibial fracture Additional Impressions: Left fibular fracture Fall Scribe Attestation The scribe's documentation has been prepared under my direction and personally reviewed by me in its entirety. I confirm that the note above accurately reflects all work, treatment, procedures, and medical decision making performed by me. Departure Information Dispostion Being Evaluated By Hospitalist Referrals Sarah Robert PA-C (PCP) Patient Instructions [facility] Problem Qualifiers
[2017-03-23] MEDS: MoRPHine SULFATE 2 MG/ML CARP IV PRN (22:13)
[2017-03-23 23:24] LABS: URINE APPEARANCE CLEAR (CLEAR); URINE BILIRUBIN NEG (NEG); URINE COLOR YELLOW; URINE EPITHELIAL CELL AUTO >30 /lpf (0-5); URINE NITRITE NEG (NEG); URINE SPECIFIC GRAVITY 1.023 (1.000-1.030); UROBILINOGEN NEG (NEG)
[2017-03-23 23:26] VITALS: BP 149/75; PULSE 67; TEMP 36.4; O2SAT 93
[2017-03-23 23:27] LABS: MANUAL MICROSCOPIC REQUIRED? NO; REVIEW REQ? YES
[2017-03-23] MEDS: GABAPENTIN 100 MG CAP PO SCH (23:58)
[2017-03-23] MEDS: HYDROXYCHLOROQUINE SULFATE 200 MG TAB PO SCH (23:59)
[2017-03-24] VITALS (9 sets, daily range): BP systolic 128–168; BP diastolic 60–78; PULSE 67–89; TEMP 36.3–36.6; O2SAT 92–100
[2017-03-24] MEDS: TEMAZEPAM 7.5 MG CAP PO SCH ×2 (00:03→20:38)
[2017-03-24] MEDS: MoRPHine SULFATE 2 MG/ML CARP IV PRN (00:18)
--- NOTE | 2017-03-24 01:45 | ORTHOPEDIC CONSULTATION ---
DATE OF CONSULTATION: 03/23/2017 HISTORY OF PRESENT ILLNESS: The patient is an 86-year-old female with a history of recent lumbar fracture, compression type fracture. She has rheumatoid arthritis, hypertension, osteoporosis, osteoarthritis, hypothyroidism. She sustained a fracture to her left leg. She was seen in the Emergency Room and noted to have tibia and fibular fracture. Dr. Weiner, the ER physician, realigned her leg and placed her into a posterior splint. REVIEW OF SYSTEMS: Says she has had the pain radiating down her right leg since she has had the back fracture. CURRENT MEDICATIONS: She is on multiple medications including metoprolol, Plaquenil, nifedipine, Losartan, gabapentin, folic acid, Januvia, Lidocaine patch, vitamin D, levothyroxine, oxycodone, MiraLax, Zofran, temazepam, methotrexate, Natural Tears for dry eyes, and Zofran. PHYSICAL EXAMINATION: Demonstrates she is in a posterior splint in her left leg. She has Goe wraps about her leg. She has good capillary refill in her toes. She can dorsiflex and plantarflex her left foot. She has good capillary refill. I could not feel her dorsalis pedis pulse well but I could feel it on her opposite leg either. X-rays demonstrate that she has a proximal tibia and fibular fracture, it is right at the tibial tubercle level, the transverse fracture across the tibia. It is actually fairly well aligned since the manipulation and splinting. She has a proximal fibular fracture high in the neck of the fibula. Some of the fracture extends in the tibial tubercle. ASSESSMENT: Acute proximal tibia and fibular fracture, osteoporosis. This likely could be unstable fracture. If the patient is medically cleared, would proceed with open reduction internal fixation with a locking tibia plate. Possibly this could be performed tomorrow if she is medically cleared. The patient should be n.p.o. at midnight pending possible surgery. CASEY
[2017-03-24] MEDS ORDERED: NURSING VERBAL MED ORDER ONE ×2 (05:00→17:30)
[2017-03-24] MEDS: LEVOTHYROXINE 75 MCG TAB PO SCH (05:29)
[2017-03-24] MEDS: INSULIN ASPART 100 UNITS/ML 3 ML PEN SC SCH ×3 (06:15→22:38)
[2017-03-24] MEDS: LACTATED RINGER'S 1000ML 1,000 ML IV SCH ×2 (06:18→15:54)
[2017-03-24] MEDS ORDERED: VANCOMYCIN INJ 1,000 MG in SODIUM CHLORIDE 0.9% 250ML 250 ML IV ONE (07:30)
--- NOTE | 2017-03-24 07:49 | Progress Note ---
Orthopedic SOAP Note Subjective Date of Service: Mar 24, 2017. Additional Notes: no pain if stays still Problem List Medical Problems: (1) Acute back pain Status: Acute (2) Compression fracture Status: Acute (3) Compression fracture of L4 lumbar vertebra Status: Acute (4) Fall Status: Acute (5) Left fibular fracture Status: Acute (6) Left tibial fracture Status: Acute (7) Pulmonary nodule Status: Acute Objective splint C/D/I, capillary refill less than 2 sec. no change in exam Date Time Temp Pulse Resp B/P (MAP) Pulse Ox O2 Delivery O2 Flow Rate FiO2 03/24/17 07:33 92 Room Air 03/24/17 07:32 99 Room Air 03/24/17 07:28 36.3 70 14 142/68 (92) 92 Room Air 03/24/17 00:00 Room Air 03/23/17 23:26 36.4 67 18 149/75 (99) 93 Room Air 03/23/17 21:56 36.4 69 16 155/66 Room Air 03/23/17 21:33 36.8 65 16 117/73 95 03/23/17 20:58 65 16 117/73 95 Room Air 03/23/17 20:04 95 Room Air 03/23/17 17:56 36.8 67 18 177/79 93 Room Air Laboratory Results 24 Hours: Test 03/23/17 19:10 White Blood Count 10.56 K/uL Red Blood Count 4.35 M/uL Hemoglobin 13.7 g/dL Hematocrit 40.8 % Mean Corpuscular Volume 93.8 fL Mean Corpuscular Hemoglobin 31.5 pg Mean Corpuscular Hemoglobin Concent 33.6 g/dl Platelet Count 170 K/uL Mean Platelet Volume 11.8 fL Neutrophils (%) (Auto) 79.7 % Lymphocytes (%) (Auto) 11.3 % Monocytes (%) (Auto) 7.3 % Eosinophils (%) (Auto) 1.1 % Basophils (%) (Auto) 0.2 % Neutrophils # (Auto) 8.42 K/uL Lymphocytes # (Auto) 1.19 K/uL Monocytes # (Auto) 0.77 K/uL Eosinophils # (Auto) 0.12 K/uL Basophils # (Auto) 0.02 K/uL Prothromb Time International Ratio 1.0 Prothrombin Time 10.7 SECONDS Assessment proximal tibia and fibula fracture unstable Plan ORIF today
[2017-03-24] MEDS: HYDROXYCHLOROQUINE SULFATE 200 MG TAB PO SCH ×2 (09:00→20:36)
[2017-03-24] MEDS: GABAPENTIN 100 MG CAP PO SCH ×3 (09:00→20:36)
[2017-03-24] MEDS: NIFEdipine 30 MG CR TAB PO SCH (09:36)
[2017-03-24] MEDS ORDERED: MIDAZOLAM HCL 1 MG/ML 2ML VIAL ONE (10:17)
[2017-03-24] MEDS ORDERED: FENTANYL CITRATE INJ 50 MCG/1 ML 2 ML VIAL ONE ×2 (10:18→13:25)
[2017-03-24] MEDS ORDERED: ONDANSETRON INJ 2 MG/ML 2 ML VIAL IV PRN (10:30)
[2017-03-24] MEDS ORDERED: ATROPINE SULFATE 0.1 MG/ML 5ML SYR IV PRN (10:30)
[2017-03-24] MEDS ORDERED: EpHEDrine SULFATE INJ 50 MG/ML AMP IV PRN (10:30)
[2017-03-24] MEDS ORDERED: POLYETHYLENE PO SCH (10:45)
--- NOTE | 2017-03-24 10:58 | Hospitalist Progress Note ---
Hospitalist Progress Note Date of Service Mar 24, 2017. Subjective Pt evaluation today including: conversation w/ patient, conversation w/ family , physical exam, review of studies Pt and her daughter at bedside report she is having pain in left leg and her back. Her fall yesterday was after a prolonged period of time mostly sitting in her MD's office waiting for 2.5 hrs for a doctor's visit after her recent dc from [facility] for rehab after vertebral compression fractures. They report they " got her meds straightened out." She was not given a Rx for her usual Lidoderm patches and was only given oxycodone q6h prn rather than her ATC q4h dosing she has been on for years. SHe has not been on any long acting opioids despite being on chronic pain meds for 4 years. She also has not been on any treatment for her osteoporosis except a remote h/o Fosamax the daughter reports. Pt denies any cardiac or pulm history. No CP or SOB. She denies any h/o syncope and did not lose consciousness yesterday before or after her fall. SHe did not feel lightheaded, had no CP and no palpitations. Daughter reports pt has been in constant pain in her back and is just exhausted from pain. Pain has now been radiating from her back down through her RLE as well. All Other Systems: Reviewed and Negative Objective Vital Signs Date Time Temp Pulse Resp B/P (MAP) Pulse Ox O2 Delivery O2 Flow Rate FiO2 03/24/17 07:33 92 Room Air 03/24/17 07:32 99 Room Air 03/24/17 07:28 36.3 70 14 142/68 (92) 92 Room Air 03/24/17 00:00 Room Air 03/23/17 23:26 36.4 67 18 149/75 (99) 93 Room Air 03/23/17 21:56 36.4 69 16 155/66 Room Air 03/23/17 21:33 36.8 65 16 117/73 95 03/23/17 20:58 65 16 117/73 95 Room Air 03/23/17 20:04 95 Room Air 03/23/17 17:56 36.8 67 18 177/79 93 Room Air Physical Exam General Appearance: WD/WN, no apparent distress Eyes: normal inspection, sclerae normal ENT: hearing grossly normal Neck: trachea midline Respiratory/Chest: lungs clear, normal breath sounds, no respiratory distress, no accessory muscle use Cardiovascular: regular rate, rhythm, no edema, no gallop, no murmur Abdomen: normal bowel sounds, non tender, soft, no organomegaly, no pulsatile mass Extremities: no calf tenderness (on right), + pertinent finding (Left leg and knee in bulky JEFF wrap and not removed, 1+ DP pulses bilat, good cap refill toes bilat) Neurologic/Psychiatric: alert, normal mood/affect, oriented x 3 Skin: normal color, warm/dry, no rash Laboratory Results Last 24 Hours Test 03/23/17 19:10 03/23/17 23:10 03/23/17 23:50 03/24/17 06:06 White Blood Count 10.56 K/uL Red Blood Count 4.35 M/uL Hemoglobin 13.7 g/dL Hematocrit 40.8 % Mean Corpuscular Volume 93.8 fL Mean Corpuscular Hemoglobin 31.5 pg Mean Corpuscular Hemoglobin Concent 33.6 g/dl Platelet Count 170 K/uL Mean Platelet Volume 11.8 fL Neutrophils (%) (Auto) 79.7 % Lymphocytes (%) (Auto) 11.3 % Monocytes (%) (Auto) 7.3 % Eosinophils (%) (Auto) 1.1 % Basophils (%) (Auto) 0.2 % Neutrophils # (Auto) 8.42 K/uL Lymphocytes # (Auto) 1.19 K/uL Monocytes # (Auto) 0.77 K/uL Eosinophils # (Auto) 0.12 K/uL Basophils # (Auto) 0.02 K/uL RDW Standard Deviation 50.5 fL RDW Coefficient of Variation 14.9 % Immature Granulocyte % (Auto) 0.4 % Immature Granulocyte # (Auto) 0.04 K/uL Prothrombin Time 10.7 SECONDS Prothromb Time International Ratio 1.0 Activated Partial Thromboplast Time 26.3 SECONDS Partial Thromboplastin Ratio 1.0 Sodium Level 136 mmol/L Potassium Level 4.7 mmol/L Chloride Level 101 mmol/L Carbon Dioxide Level 30 mmol/L Anion Gap 5.0 mmol/L Blood Urea Nitrogen 18 mg/dl Creatinine 1.00 mg/dl Est Creatinine Clear Calc Drug Dose 28.5 ml/min Estimated GFR () 59.9 Estimated GFR (Non- 51.7 BUN/Creatinine Ratio 18.1 Random Glucose 146 mg/dl Calcium Level 9.1 mg/dl Urine Color YELLOW Urine Appearance CLEAR Urine pH 5.0 Urine Specific [place] 1.023 Urine Protein TRACE Urine Glucose (UA) NEG Urine Ketones TRACE Urine Occult Blood NEG Urine Nitrite NEG Urine Bilirubin NEG Urine Urobilinogen NEG Urine Leukocyte Esterase TRACE Urine WBC (Auto) 1-5 /hpf Urine RBC (Auto) 0-4 /hpf Urine Hyaline Casts (Auto) 1-5 /lpf Urine Epithelial Cells (Auto) >30 /lpf Urine Bacteria (Auto) NEG Urine Renal Epithelial Cells /lpf Bedside Glucose 174 mg/dl 164 mg/dl Assessment and Plan 86-year-old female with a h/o HTN, RA, Osteoporosis with multiple compression fractures on chronic opioids, hypothyroidism, DMII, who presented to the emergency department with left leg pain, tib/fib fracture after a mechanical fall. The patient is a a 0.4 risk of major cardiac events per the RCRI scale. No further cardiac workup is deemed necessary. Patient is also at low risk of apneic events per STOP-BANG scale. Recommend proceeding with surgery today. Tib/Fib fracture, mechanical fall -Admit to medical floor -Appreciate ortho management of fracture -Morphine 2 mg IV every 2 hours as needed for pain -Bedrest for now and further limitations as per Ortho -Insert [place] -PT/OT -Patient will likely need rehabilitation postoperatively -follow post-op CBC Chronic back pain, Opioid dependence, Vertebral compression fractures subacute, Osteoporosis -is not on any treatment for osteoporosis--> HIGHLY recommend starting treatment with Prolia or even better would be Forteo given her recent fractures -check Vit D, iPTH levels -start Calcium + D -f/u with PCP for Osteoporosis treatment -also would recommend transitioning to long acting opioid given opioid dependence and chronic pain--> would start Fentanyl patch 12 mcg but will leave this up to PCP as I am unsure if PCP willing to prescribe this in follow up -continue oxycodone prn for now -bowel regimen -Lidoderm patch HTN-mildly hypertensive here -Continue Toprol XL 100 mg daily, Nifedipine XL 30 mg daily -Hold losartan/HCTZ for now -Hydralazine 10 mg IV q 6 hr PRN Diabetes mellitus II-last A1C here in 2012 was 9.2% -ok to restart home dose of Januvia 100 mg daily -NovoLog insulin sliding scale and glucose checks -ADA diet -check A1C Hypothyroidism-clinically euthyroid -continue Synthroid 75 mcg daily -f/u with PCP Rheumatoid arthritis-on MTX and Plaquenil for years -continue home meds DVT prophylaxis -Begin chemical means of prophylaxis when okay with orthopedics -TEDS, SCDs to R leg CODE STATUS -CPR ok -NO INTUBATION
[2017-03-24] MEDS ORDERED: BACITRACIN 50000 UNIT VIAL ONE (11:02)
[2017-03-24] MEDS ORDERED: BUPIVACAINE/EPINEPHRINE 0.5% MPF 1:200,000 10 ML VIAL ONE (11:02)
[2017-03-24] MEDS ORDERED: BUPIVACAINE 0.25% 30 ML VIAL ONE (11:15)
[2017-03-24] MEDS ORDERED: CLINDAMYCIN 600 MG/54 ML D5W IV ONE (11:21)
[2017-03-24] MEDS ORDERED: NURSING VERBAL MED ORDER STA (11:30)
[2017-03-24] MEDS ORDERED: PROPOFOL IV EMULSION 10 MG/ML 20 ML VIAL IV ONE (11:51)
[2017-03-24] MEDS ORDERED: ONDANSETRON INJ 2 MG/ML 2 ML VIAL ONE (11:51)
[2017-03-24] MEDS ORDERED: ROCURONIUM BROMIDE 10 MG/ML 5 ML VIAL ONE (11:51)
[2017-03-24] MEDS ORDERED: LIDOCAINE HCL 2% 2 ML VIAL (20MG/ML) ONE (11:51)
[2017-03-24] MEDS ORDERED: DEXAMETHASONE SOD INJ 4 MG/ML VIAL ONE ×2 (11:51→12:27)
[2017-03-24] MEDS ORDERED: NEOSTIGMINE METHYLSULFATE 5 MG/5 ML SYR ONE (12:30)
[2017-03-24] MEDS ORDERED: GLYCOPYRROLATE INJ 0.2 MG/ML VIAL ONE (12:30)
[2017-03-24] MEDS ORDERED: PHENYLEPHRINE HCL INJ 10 MG/ML VIAL ONE (12:30)
[2017-03-24] MEDS ORDERED: MAGNESIUM HYDROXIDE SUSP 30 ML UDC PO PRN (13:00)
[2017-03-24] MEDS ORDERED: BISACODYL 10 MG SUPP PR PRN (13:00)
[2017-03-24] MEDS ORDERED: HYDROmorphone INJ 0.5 MG/0.5 ML SYR IV PRN (13:00)
[2017-03-24] MEDS ORDERED: TRAMADOL HCL 50 MG TAB PO PRN (13:00)
--- NOTE | 2017-03-24 13:42 | DIAGNOSTIC IMAGING REPORT ---
LEFT KNEE 1 OR 2 VIEWS CLINICAL HISTORY: LEFT ORIF PROXIMAL TIB FX Fluoroscopy time: 65 seconds. FINDINGS: 3 fluoroscopic spot images of the proximal left tibia. Patient is status post internal fixation of the proximal tibial fracture with a cortical plate and screws. The hardware appears intact. There is improved anatomic alignment. There is also evidence for a fibular neck fracture. IMPRESSION: Fluoroscopy provided for internal fixation of the proximal tibial fracture. Electronically signed by: Oneil Kahn M.D. 03/24/2017 1:41 PM Dictated Date/Time: 03/24/2017 1:26 PM
--- NOTE | 2017-03-24 13:58 | [facility] Post Operative Brief Note ---
Immediate Operative Summary Operative Date Mar 24, 2017. Pre-Operative Diagnosis proximal extraarticular Tibial and fibula fracture left leg,osteoporosis Post-Operative Diagnosis same, tibial tubercle fracxure with patellar tendon avulsion Procedure(s) Performed Open Reduction Internal Fixation Left Tibial metaphyseal Fracture and repair patellar tendon avulsion Surgeon Dr. Francois Mri Tech Surgeon(s) Juan R Pedro Estimated Blood Loss 20 mL Findings as above Specimens None Drains 2 hemovac Anesthesia general Complication(s) None Disposition Recovery Room / PACU
[2017-03-24] MEDS: FENTANYL CITRATE INJ 50 MCG/1 ML 2 ML VIAL IV PRN ×4 (14:14→14:29)
[2017-03-24] MEDS: HYDROmorphone INJ 1 MG/ML SYR IV PRN ×4 (14:29→14:49)
--- NOTE | 2017-03-24 14:50 | Anesthesiology Progress Note ---
Anesthesia Post Op Note Date & Time Mar 24, 2017 at 14:50 Vital Signs Pain Intensity: 3 Vital Signs Past 12 Hours Date Time Temp Pulse Resp B/P (MAP) Pulse Ox O2 Delivery O2 Flow Rate FiO2 03/24/17 14:40 66 16 170/59 100 Nasal Cannula 2 03/24/17 14:30 63 16 169/89 100 Nasal Cannula 2 03/24/17 14:20 67 16 164/61 94 Nasal Cannula 2 03/24/17 14:10 67 16 185/66 98 Mask 10 03/24/17 14:00 63 16 196/61 98 Mask 10 03/24/17 13:51 36 66 16 182/59 98 Mask 10 03/24/17 07:40 Room Air 03/24/17 07:33 92 Room Air 03/24/17 07:32 99 Room Air 03/24/17 07:28 36.3 70 14 142/68 (92) 92 Room Air Notes Mental Status: alert / awake / arousable, participated in evaluation Pt Amnestic to Procedure: Yes Nausea / Vomiting: adequately controlled Pain: adequately controlled Airway Patency, RR, SpO2: stable & adequate BP & HR: stable & adequate Hydration State: stable & adequate Anesthetic Complications: no major complications apparent
[2017-03-24] MEDS: OXYCODONE HCL IR 5 MG TAB (IMMEDIATE RELEASE) PO PRN (19:43)
[2017-03-24] MEDS ORDERED: VANCOMYCIN INJ 800 MG in SODIUM CHLORIDE 0.9% 250ML 250 ML IV SCH (20:00)
[2017-03-24] MEDS: CALCIUM 600MG + VIT D 400 IU TAB PO SCH (20:36)
[2017-03-24] MEDS: ACETAMINOPHEN 500 MG TAB PO SCH (22:09)
[2017-03-24] MEDS: CYCLOBENZAPRINE HCL 5 MG TAB PO PRN (22:38)
[2017-03-25] VITALS (8 sets, daily range): BP systolic 118–127; BP diastolic 57–68; PULSE 64–90; TEMP 36.3–36.6; O2SAT 91–98
--- NOTE | 2017-03-25 01:18 | OPERATIVE REPORT ---
DATE OF OPERATION: 03/24/2017 INDICATION FOR PROCEDURE: The patient is an 86-year-old female who has known osteoporosis and recent osteoporotic-related spinal fractures. She was at her primary care physician's office and tripped on sidewalk and fractured her left leg. She was brought to [facility] Emergency Room and had a realignment of her leg and placed into a splint by the Emergency Room physician. Radiographs demonstrate that she has a transverse metaphyseal fracture through the proximal tibia and some tibial tubercle avulsion type fracture at the patella tendon attachment site. She also has a proximal fibular fracture high in the neck. Neurologically, she was intact. Circulation was intact. The fracture was closed injury. PREOPERATIVE DIAGNOSES: Left proximal tibia metaphyseal fracture, osteoporosis, possible avulsion fracture of the patella, possible compromise extensor mechanism. POSTOPERATIVE DIAGNOSES: Proximal metaphyseal fracture left tibia with patellar tendon avulsion with avulsion fracture fragment and osteoporosis. PROCEDURE: Left open reduction internal fixation of proximal tibial metaphyseal fracture including repair of patellar tendon avulsion fracture. SURGEON: Dr. Francois. BUSINESS AFFAIRS MANAGER: DIMAS Dumont. ANESTHESIA: General. OPERATIVE PROCEDURE: The patient was taken to the operating room and placed supine on the operating room table, anesthetized under general anesthetic. A pneumatic tourniquet was placed on left upper thigh and left lower extremity was examined, demonstrating some very small fracture blisters on the medial side and just a tiny strip of fracture blisters coming transversely across the anterior leg in the mid tibial area. She had ecchymosis and swelling, no tense compartments. The left lower extremity was sterilely prepped and draped with ChloraPrep. The leg was elevated, exsanguinated with Esmarch bandage, pneumatic tourniquet was raised to 300 mmHg. An anterior incision was made just anterolateral to the crest of the tibia, extending longitudinally across the patella to about 3 cm above the patella. The skin was incised sharply. Subcutaneous tissues were divided down to some hematoma from the fracture and subcutaneous flaps were elevated off the fascia. There was a transverse fracture in the metaphysis as noted on the x-rays, gapped anteriorly, and there was a patellar tendon avulsion fracture fragment attached to the patellar tendon. This was about 1 to 1.5 cm fragment. This compromised the extensor mechanism. The subcutaneous flaps were elevated slightly medial enough to expose the anterior medial tibia and more exposure performed laterally in order to place a lateral [employer] locking plate. Some of the tibialis anterior fascia was attenuated and partially torn from the trauma. Incision was made through the tibialis anterior fascia, leaving a cuff of tissue on the tibia for repair. Then, the muscle was dissected off the shaft of the tibia and an elevator was used to elevate the muscle off the lateral tibia. This was performed up to the level of the fracture. Over the proximal fragment, first a vertical incision was made, then incision made horizontally back along the joint line through the IT band, and the remainder of the fascia of the tibialis anterior attachment was reflected posteriorly off the lateral tibia, leaving the joint capsule intact. This allowed us to lay the plate across the tibial metaphysis and the lateral side of the tibia. The fracture was reduced under fluoroscopic guidance anatomically and then I used a 6-hole locking plate from [employer]. I first placed a smooth K-wire through the plate once we determined the appropriate height of the plate and aligned the plate in the anterior-posterior plane. After temporary transfixing the plate with another K-wire, then I went ahead and used a cancellous screw to lag the plate to the proximal tibial fragment. After that was completed, we subsequently placed 3 long locking screws into the proximal fragment. Total of 4 screws were placed in the proximal fragment. Then, we refined the reduction and transfixed the plate using both the kickstand screws and the cortical screws of the 6-hole plate, placing one lag screw to lag the plate to the shaft first with a bicortical fixation and then we went ahead with locking screws in the remainder of the holes. Then, I went ahead and placed a third tubular 3-hole antiglide plate on the anterior medial tibia, transfixed with a 3.5 cortical screw distally and a 4.0 cancellous screw proximally. Then, I made a transverse drill hole through the tibial tubercle below the fracture line, used the Hewson suture passer to pass the #5 FiberWire sutures through that, made a [id number] suture through the patella tendon to perform a tension band technique, repairing the tibial tubercle avulsion fragment anatomically. Knee was taken through range of motion and repair was secured with stable reduction through passive range of motion. Final fluoroscopic views were obtained. The wound was copiously irrigated with saline. Two Hemovac drains were placed, one deep to the tibialis anterior fascia and one superficial to it under the subcutaneous tissues. Tibialis anterior fascia was closed with [id number] #1 Vicryl sutures. The IT band incision was closed with [id number] #1 Vicryl sutures. Subcutaneous tissues were closed with interrupted 2-0 Vicryl sutures, skin closed with carl. Xeroform dressings were placed over the incision and all blisters identified and sterile gauze dressings were applied and sterile Webril compressive dressing. Tourniquet was let down. The patient had good capillary to the extremity. Placed a double Geo wrap from the foot to the thigh, placed her into a knee immobilizer. DIMAS Dumont, was my vet assistant, he functioned as vet assistant with patient positioning, prepping, draping, soft tissue retraction, instrument management during the fixation. He will participate in postoperative care of the patient. I attest to the content of the Intraoperative Record and any orders documented therein. Any exceptions are noted below. CASEY
[2017-03-25] MEDS: OXYCODONE HCL IR 5 MG TAB (IMMEDIATE RELEASE) PO PRN ×3 (02:20→15:49)
[2017-03-25] MEDS: LEVOTHYROXINE 75 MCG TAB PO SCH (05:23)
[2017-03-25] MEDS: ACETAMINOPHEN 500 MG TAB PO SCH ×3 (05:23→21:37)
[2017-03-25] MEDS: MoRPHine SULFATE 2 MG/ML CARP IV PRN ×4 (06:55→23:18)
[2017-03-25 07:38] LABS: CALCIUM 8.4 mg/dl (8.5-10.1); CREATININE 0.7 mg/dl (0.60-1.20); MAGNESIUM 1.5 mg/dl (1.8-2.4); POTASSIUM 4.1 mmol/L (3.5-5.1)
[2017-03-25 08:11] LABS: BASO % 0.2 %; BASO ABS # 0.02 K/uL (0-0.2); COMPLETE YES; EOS % 3.7 %; HEMATOCRIT 28.9 % (37-47); IG% 0.5 %; LYMPH ABS # 0.95 K/uL (1.2-3.4); MEAN CELL VOLUME 94.4 fL (80-100); MEAN CORPUSCULAR HGB CONC 33.9 g/dl (32-36); MEAN PLATELET VOLUME 10.6 fL (7.4-10.4); MONO % 12.7 %; NEUT % 72.9 %; PLATELET COUNT 114 K/uL (130-400); RED BLOOD COUNT 3.06 M/uL (4.2-5.4); WHITE BLOOD COUNT 9.52 K/uL (4.8-10.8)
[2017-03-25 08:23] LABS: ESTIMATED AVERAGE GLUCOSE 160 mg/dl; HA1C FLAG Normal (Normal)
[2017-03-25] MEDS: METOPROLOL SUCC 50MG EXT REL TAB PO SCH (08:56)
[2017-03-25] MEDS: GABAPENTIN 100 MG CAP PO SCH ×3 (08:57→21:38)
[2017-03-25] MEDS: NIFEdipine 30 MG CR TAB PO SCH (08:57)
[2017-03-25] MEDS: CALCIUM 600MG + VIT D 400 IU TAB PO SCH ×2 (08:57→21:37)
[2017-03-25] MEDS: SITAGLIPTIN 100 MG TAB PO SCH (08:58)
[2017-03-25] MEDS: LACTOBACILLUS ACIDOPHILUS (FLORANEX) TAB PO SCH (08:58)
[2017-03-25] MEDS: HYDROXYCHLOROQUINE SULFATE 200 MG TAB PO SCH ×2 (08:58→21:38)
[2017-03-25] MEDS: INSULIN ASPART 100 UNITS/ML 3 ML PEN SC SCH ×4 (09:03→21:36)
[2017-03-25] MEDS: MAGNESIUM SULFATE 1GM / D5W 1 GM in PREMIXED IN D5W 100 ML IV SCH ×2 (09:11→11:00)
--- NOTE | 2017-03-25 10:29 | Anesthesiology Progress Note ---
Anesthesia Post Op Note Date & Time Mar 25, 2017 at 10:29 Vital Signs Pain Intensity: 7.0 Vital Signs Past 12 Hours Date Time Temp Pulse Resp B/P (MAP) Pulse Ox O2 Delivery O2 Flow Rate FiO2 03/25/17 08:00 Room Air 03/25/17 07:04 36.3 86 15 120/57 (78) 91 Room Air 03/25/17 05:21 90 94 Room Air 03/25/17 03:27 36.6 88 14 120/67 (84) 94 Nasal Cannula 2.0 03/24/17 23:50 Nasal Cannula 2.0 03/24/17 22:54 36.6 88 14 144/65 (91) 97 Nasal Cannula 2.0 Notes Mental Status: alert / awake / arousable, participated in evaluation Pt Amnestic to Procedure: Yes Nausea / Vomiting: adequately controlled Pain: adequately controlled Airway Patency, RR, SpO2: stable & adequate BP & HR: stable & adequate Hydration State: stable & adequate Anesthetic Complications: no major complications apparent
--- NOTE | 2017-03-25 18:18 | Hospitalist Progress Note ---
Hospitalist Progress Note Date of Service Mar 25, 2017. Subjective Pt evaluation today including: conversation w/ patient, conversation w/ family (daughter Ashely on phone), physical exam Pt reports pain in left leg, just got brace on. Also pain in her back. Daughter reports Ortho told her she is not in any shape to be discharged to rehab tomorrow. SHe could barely get out of bed today with PT. All Other Systems: Reviewed and Negative Objective Vital Signs Date Time Temp Pulse Resp B/P (MAP) Pulse Ox O2 Delivery O2 Flow Rate FiO2 03/25/17 15:45 36.5 74 16 127/59 (81) 92 Nasal Cannula 3.0 03/25/17 12:00 95 Room Air 03/25/17 09:00 93 Room Air 03/25/17 08:00 Room Air 03/25/17 07:04 36.3 86 15 120/57 (78) 91 Room Air 03/25/17 05:21 90 94 Room Air 03/25/17 03:27 36.6 88 14 120/67 (84) 94 Nasal Cannula 2.0 03/24/17 23:50 Nasal Cannula 2.0 03/24/17 22:54 36.6 88 14 144/65 (91) 97 Nasal Cannula 2.0 03/24/17 19:46 36.5 89 18 128/63 (84) 97 Nasal Cannula 2.0 03/24/17 18:35 80 16 168/67 (100) 93 Nasal Cannula 2.0 Physical Exam General Appearance: WD/WN, no apparent distress Eyes: normal inspection, sclerae normal ENT: hearing grossly normal Neck: trachea midline Respiratory/Chest: lungs clear, normal breath sounds, no respiratory distress, no accessory muscle use Cardiovascular: regular rate, rhythm, no edema, no murmur Abdomen: normal bowel sounds, non tender, soft Extremities: + pertinent finding (left lower extremity in knee immobilizer, can move toes on left; right leg no edema, 2+ DP pulses bilat) Neurologic/Psychiatric: alert, normal mood/affect Skin: normal color, warm/dry, no rash Laboratory Results Last 24 Hours Test 03/24/17 22:14 03/25/17 06:48 03/25/17 07:51 03/25/17 11:42 Bedside Glucose 248 mg/dl 178 mg/dl 206 mg/dl White Blood Count 9.52 K/uL Red Blood Count 3.06 M/uL Hemoglobin 9.8 g/dL Hematocrit 28.9 % Mean Corpuscular Volume 94.4 fL Mean Corpuscular Hemoglobin 32.0 pg Mean Corpuscular Hemoglobin Concent 33.9 g/dl Platelet Count 114 K/uL Mean Platelet Volume 10.6 fL Neutrophils (%) (Auto) 72.9 % Lymphocytes (%) (Auto) 10.0 % Monocytes (%) (Auto) 12.7 % Eosinophils (%) (Auto) 3.7 % Basophils (%) (Auto) 0.2 % Neutrophils # (Auto) 6.94 K/uL Lymphocytes # (Auto) 0.95 K/uL Monocytes # (Auto) 1.21 K/uL Eosinophils # (Auto) 0.35 K/uL Basophils # (Auto) 0.02 K/uL RDW Standard Deviation 50.9 fL RDW Coefficient of Variation 15.1 % Immature Granulocyte % (Auto) 0.5 % Immature Granulocyte # (Auto) 0.05 K/uL Sodium Level 134 mmol/L Potassium Level 4.1 mmol/L Chloride Level 100 mmol/L Carbon Dioxide Level 29 mmol/L Anion Gap 5.0 mmol/L Blood Urea Nitrogen 11 mg/dl Creatinine 0.70 mg/dl Est Creatinine Clear Calc Drug Dose 40.7 ml/min Estimated GFR () 92.2 Estimated GFR (Non- 79.6 BUN/Creatinine Ratio 16.0 Random Glucose 178 mg/dl Estimated Average Glucose 160 mg/dl Hemoglobin A1c 7.2 % Calcium Level 8.4 mg/dl Magnesium Level 1.5 mg/dl 25-Hydroxy Vitamin D Total 22.4 ng/ml Parathyroid Hormone (Intact) 68.2 pg/mL Assessment and Plan 86-year-old female with a h/o HTN, RA, Osteoporosis with multiple compression fractures on chronic opioids, hypothyroidism, DMII, who presented to the emergency department with left leg pain, tib/fib fracture after a mechanical fall. Tib/Fib fracture, patellar tendon avulsion, mechanical fall-s/p ORIF on 03/[address] Francois. -Appreciate ortho management of fracture -Morphine 2 mg IV every 2 hours as needed for pain - limitations as per Ortho, non weight bearing left leg -continue [place] -PT/OT -Patient will likely need rehabilitation postoperatively but apparently Ortho says she is not ready yet for discharge by tomorrow-will d/w Ortho -follow post-op CBCs Acute blood loss anemia-hgb dropped to 9.8 from 13.7 preop-some may be dilutional, some from blood loss. Hemodynamically stable -follow Hgb -transfuse for Hgb <7-8 Chronic back pain, Opioid dependence, Vertebral compression fractures subacute, Osteoporosis, Vit D deficiency VIt D low at 22. PTH normal at 68 -is not on any treatment for osteoporosis--> HIGHLY recommend starting treatment with Prolia or even better would be Forteo given her recent fractures -started Calcium + D -f/u with PCP for Osteoporosis treatment -also would recommend transitioning to long acting opioid given opioid dependence and chronic pain--> would start Fentanyl patch 12 mcg but will leave this up to PCP as I am unsure if PCP willing to prescribe this in follow up -continue oxycodone prn for now -bowel regimen -Lidoderm patch -Ortho SPine consultation may be in the works as per pt's daughter, but no consult placed--> will d/w Ortho if necessary this admission +/- any repeat imaging HTN-BPs now look good -Continue Toprol XL 100 mg daily, Nifedipine XL 30 mg daily -Hold losartan/HCTZ for now -Hydralazine 10 mg IV q 6 hr PRN Diabetes mellitus II-HgbA1C is 7.2% here -ok to restart home dose of Januvia 100 mg daily -NovoLog insulin sliding scale and glucose checks -ADA diet Hypothyroidism-clinically euthyroid -continue Synthroid 75 mcg daily -f/u with PCP Rheumatoid arthritis-on MTX and Plaquenil for years -continue home meds DVT prophylaxis -Begin chemical means of prophylaxis when okay with orthopedics -TEDS, SCDs to R leg CODE STATUS -CPR ok -NO INTUBATION Dispo-to SNF when ok with Ortho
[2017-03-25] MEDS: TEMAZEPAM 7.5 MG CAP PO SCH (21:38)
--- NOTE | 2017-03-25 23:16 | Progress Note ---
Orthopedic SOAP Note Subjective Date of Service: Mar 25, 2017. Additional Notes: in pain but controlled,has more pain in back and right sciatica symptoms than left leg Problem List Medical Problems: (1) Acute back pain Status: Acute (2) Compression fracture Status: Acute (3) Compression fracture of L4 lumbar vertebra Status: Acute (4) Fall Status: Acute (5) Left fibular fracture Status: Acute (6) Left tibial fracture Status: Acute (7) Pulmonary nodule Status: Acute Objective dressing C/D/I, CMS intact brace applied left leg Date Time Temp Pulse Resp B/P (MAP) Pulse Ox O2 Delivery O2 Flow Rate FiO2 03/25/17 15:45 36.5 74 16 127/59 (81) 92 Nasal Cannula 3.0 03/25/17 15:30 92 Nasal Cannula 3.0 03/25/17 12:00 95 Room Air 03/25/17 09:00 93 Room Air 03/25/17 08:00 Room Air 03/25/17 07:04 36.3 86 15 120/57 (78) 91 Room Air 03/25/17 05:21 90 94 Room Air 03/25/17 03:27 36.6 88 14 120/67 (84) 94 Nasal Cannula 2.0 03/24/17 23:50 Nasal Cannula 2.0 Laboratory Results 24 Hours: Test 03/25/17 06:48 White Blood Count 9.52 K/uL Red Blood Count 3.06 M/uL Hemoglobin 9.8 g/dL Hematocrit 28.9 % Mean Corpuscular Volume 94.4 fL Mean Corpuscular Hemoglobin 32.0 pg Mean Corpuscular Hemoglobin Concent 33.9 g/dl Platelet Count 114 K/uL Mean Platelet Volume 10.6 fL Neutrophils (%) (Auto) 72.9 % Lymphocytes (%) (Auto) 10.0 % Monocytes (%) (Auto) 12.7 % Eosinophils (%) (Auto) 3.7 % Basophils (%) (Auto) 0.2 % Neutrophils # (Auto) 6.94 K/uL Lymphocytes # (Auto) 0.95 K/uL Monocytes # (Auto) 1.21 K/uL Eosinophils # (Auto) 0.35 K/uL Basophils # (Auto) 0.02 K/uL Assessment proximal tibia and fibula fracture unstable,pod #1 s/p orif tibia and repair patellar tendon avulsion left leg Plan PT nwb LEFT ,BRACE , 3WEEKS EXTENSION PRIOR TO ANY ROM. Have patient reevaluated by Dr Beverley uiras back and sciatica issues prior to d/c
[2017-03-26] MEDS: LEVOTHYROXINE 75 MCG TAB PO SCH (05:25)
[2017-03-26] MEDS: ACETAMINOPHEN 500 MG TAB PO SCH ×3 (05:26→21:20)
[2017-03-26 07:35] VITALS: BP 124/56; PULSE 68; TEMP 36.5; O2SAT 99
[2017-03-26 07:39] LABS: HEMATOCRIT 26.7 % (37-47); MEAN CORPUSCULAR HEMOGLOBIN 32.7 pg (25-34); MEAN CORPUSCULAR HGB CONC 34.5 g/dl (32-36); PLATELET COUNT 125 K/uL (130-400); RED BLOOD COUNT 2.81 M/uL (4.2-5.4); WHITE BLOOD COUNT 9.36 K/uL (4.8-10.8)
--- NOTE | 2017-03-26 08:45 | Orthopedic Progress Note ---
Orthopedic Progress Note Date of Service Mar 26, 2017. Subjective Post OP Day: 2 Reports: feeling well, pain controlled w PO medications, Denies: complaints, chest pain, SOB, nausea / vomiting, light headedness, calf pain Objective calves soft nontender, N/V intact, capillary refill less than 2 sec., dressing C /D/I, incision C/D/I, A&O x3, toes mobile no erythema, no drainage, no blistering noted. carl in tact, skin edges approximated well. Date Time Temp Pulse Resp B/P (MAP) Pulse Ox O2 Delivery O2 Flow Rate FiO2 03/26/17 07:35 36.5 68 18 124/56 (78) 99 Nasal Cannula 2.0 03/25/17 23:15 Nasal Cannula 3.0 03/25/17 23:12 36.5 64 16 118/68 (85) 98 Nasal Cannula 2.0 03/25/17 15:45 36.5 74 16 127/59 (81) 92 Nasal Cannula 3.0 03/25/17 15:30 92 Nasal Cannula 3.0 03/25/17 12:00 95 Room Air 03/25/17 09:00 93 Room Air Laboratory Results 24 Hours: Test 03/26/17 07:14 Hematocrit 26.7 % Hemoglobin 9.2 g/dL Assessment & Plan Assessment: proximal tibia and fibula fracture unstable,pod #2 s/p orif tibia and repair patellar tendon avulsion left leg Plan: PT nwb LEFT ,BRACE , 3WEEKS EXTENSION PRIOR TO ANY ROM. Have patient reevaluated by Dr Lowery with back and sciatica issues prior to d/c disposition SNF Dressings changed and drain pulled today by me. Inhouse Planning Pain Management: Ultram, Dilaudid, PO Tylenol, Oxy IR DVT Prophylaxis: TEDs, SCDs Discharge Planning [facility]charge Planning: [facility]
[2017-03-26] MEDS: INSULIN ASPART 100 UNITS/ML 3 ML PEN SC SCH ×4 (09:02→21:27)
[2017-03-26] MEDS: MoRPHine SULFATE 2 MG/ML CARP IV PRN ×2 (09:04→23:58)
[2017-03-26] MEDS: CALCIUM 600MG + VIT D 400 IU TAB PO SCH ×2 (09:09→21:19)
[2017-03-26] MEDS: LACTOBACILLUS ACIDOPHILUS (FLORANEX) TAB PO SCH (09:10)
[2017-03-26] MEDS: SITAGLIPTIN 100 MG TAB PO SCH (09:11)
[2017-03-26] MEDS: GABAPENTIN 100 MG CAP PO SCH ×3 (09:12→21:21)
[2017-03-26] MEDS: HYDROXYCHLOROQUINE SULFATE 200 MG TAB PO SCH ×2 (09:13→21:22)
[2017-03-26] MEDS: NIFEdipine 30 MG CR TAB PO SCH (09:14)
[2017-03-26] MEDS: METOPROLOL SUCC 50MG EXT REL TAB PO SCH (09:16)
[2017-03-26 09:45] VITALS: O2SAT 99
[2017-03-26] MEDS: ASPIRIN 81 MG ECTAB PO SCH ×2 (10:40→21:21)
[2017-03-26 15:10] VITALS: BP 133/64; PULSE 72; TEMP 36.4; O2SAT 97
[2017-03-26 15:46] VITALS: BP 127/68; PULSE 68; TEMP 36.5; O2SAT 96
--- NOTE | 2017-03-26 18:35 | Hospitalist Progress Note ---
Hospitalist Progress Note Date of Service Mar 26, 2017. Subjective Pt evaluation today including: conversation w/ patient, conversation w/ family Voiding: no voiding problems Pt feeling well today. Sat up to the edge of the bed and had pain in the leg and back. Is eating, moving bowels, voiding. Awaiting Ortho Spine Consultation All Other Systems: Reviewed and Negative Objective Vital Signs Date Time Temp Pulse Resp B/P (MAP) Pulse Ox O2 Delivery O2 Flow Rate FiO2 03/26/17 16:00 Nasal Cannula 1.0 03/26/17 15:46 36.5 68 18 127/68 (87) 96 Nasal Cannula 1.0 03/26/17 15:10 36.4 72 16 133/64 (87) 97 Nasal Cannula 2.0 03/26/17 09:45 99 Nasal Cannula 2.0 03/26/17 08:00 Nasal Cannula 3.0 03/26/17 07:35 36.5 68 18 124/56 (78) 99 Nasal Cannula 2.0 03/25/17 23:15 Nasal Cannula 3.0 03/25/17 23:12 36.5 64 16 118/68 (85) 98 Nasal Cannula 2.0 Physical Exam General Appearance: WD/WN, no apparent distress Eyes: normal inspection, sclerae normal ENT: hearing grossly normal Neck: trachea midline Respiratory/Chest: no respiratory distress, no accessory muscle use, + crackles (at left base) Cardiovascular: regular rate, rhythm, no edema, no gallop, no murmur Abdomen: normal bowel sounds, non tender, soft, no organomegaly Extremities: non-tender, no pedal edema, + pertinent finding (left leg in knee brace; right leg no edema) Neurologic/Psychiatric: alert, normal mood/affect Skin: normal color, warm/dry, no rash Laboratory Results Last 24 Hours Test 03/25/17 20:48 03/26/17 07:14 03/26/17 08:00 03/26/17 11:55 Bedside Glucose 253 mg/dl 135 mg/dl 223 mg/dl White Blood Count 9.36 K/uL Red Blood Count 2.81 M/uL Hemoglobin 9.2 g/dL Hematocrit 26.7 % Mean Corpuscular Volume 95.0 fL Mean Corpuscular Hemoglobin 32.7 pg Mean Corpuscular Hemoglobin Concent 34.5 g/dl RDW Standard Deviation 52.3 fL RDW Coefficient of Variation 15.0 % Platelet Count 125 K/uL Mean Platelet Volume 11.0 fL Assessment and Plan 86-year-old female with a h/o HTN, RA, Osteoporosis with multiple compression fractures on chronic opioids, hypothyroidism, DMII, who presented to the emergency department with left leg pain, tib/fib fracture after a mechanical fall. Tib/Fib fracture, patellar tendon avulsion, mechanical fall-s/p ORIF on 03/[address] Francois. DOing well post-op -Appreciate ortho management of fracture -Morphine, dilaudid, oxycodone, and tramadol all available for pain - limitations as per Ortho, non weight bearing left leg with brace on for 3 weeks, recommend extension before any ROM -PT/OT -to rehab possibly tomorrow -follow post-op CBCs Acute blood loss anemia-hgb dropped to 9.2 from 13.7 preop-some may be dilutional, some from blood loss. Hemodynamically stable -follow Hgb -transfuse for Hgb <7-8 Chronic back pain, Opioid dependence, Vertebral compression fractures subacute, Osteoporosis, Vit D deficiency VIt D low at 22. PTH normal at 68 -is not on any treatment for osteoporosis--> HIGHLY recommend starting treatment with Prolia or even better would be Forteo given her recent fractures -started Calcium + D -f/u with PCP for Osteoporosis treatment -also would recommend transitioning to long acting opioid given opioid dependence and chronic pain--> would start Fentanyl patch 12 mcg but will leave this up to PCP as I am unsure if PCP willing to prescribe this in follow up -continue oxycodone prn for now -bowel regimen -Lidoderm patch -Ortho SPine consultation pending HTN-BPs now look good -Continue Toprol XL 100 mg daily, Nifedipine XL 30 mg daily -Hold losartan/HCTZ for now -Hydralazine 10 mg IV q 6 hr PRN Diabetes mellitus II-HgbA1C is 7.2% here, but with hyperglycemia today in the mid 200s -continue Januvia 100 mg daily -NovoLog insulin sliding scale and glucose checks -ADA diet -start Lantus 5 units hs today Hypothyroidism-clinically euthyroid -continue Synthroid 75 mcg daily -f/u with PCP Rheumatoid arthritis-on MTX and Plaquenil for years -continue home meds DVT prophylaxis -ASA 81 mg bid -TEDS, SCDs to R leg CODE STATUS -CPR ok -NO INTUBATION Dispo-to SNF when ok with Ortho
[2017-03-26] MEDS ORDERED: INSULIN GLARGINE SOLOSTAR 100 UNITS/ML 3 ML PEN SC SCH (21:00)
[2017-03-26] MEDS: TEMAZEPAM 7.5 MG CAP PO SCH (21:26)
[2017-03-26 23:33] VITALS: BP 126/67; PULSE 75; TEMP 36.5; O2SAT 92
[2017-03-27] MEDS: LEVOTHYROXINE 75 MCG TAB PO SCH (05:50)
[2017-03-27] MEDS: ACETAMINOPHEN 500 MG TAB PO SCH ×2 (05:50→13:32)
[2017-03-27 07:31] VITALS: BP 134/68; PULSE 71; TEMP 36.2; O2SAT 97
[2017-03-27 07:55] LABS: BASO % 0.2 %; BASO ABS # 0.02 K/uL (0-0.2); EOS % 4.8 %; HEMATOCRIT 26.6 % (37-47); IG% 0.7 %; LYMPH % 11.6 %; LYMPH ABS # 0.99 K/uL (1.2-3.4); MEAN CELL VOLUME 95.3 fL (80-100); MEAN CORPUSCULAR HEMOGLOBIN 31.5 pg (25-34); MEAN CORPUSCULAR HGB CONC 33.1 g/dl (32-36); MEAN PLATELET VOLUME 10.6 fL (7.4-10.4); MONO % 13.3 %; NEUT % 69.4 %; PLATELET COUNT 148 K/uL (130-400); RED BLOOD COUNT 2.79 M/uL (4.2-5.4); WHITE BLOOD COUNT 8.56 K/uL (4.8-10.8)
[2017-03-27] MEDS: INSULIN ASPART 100 UNITS/ML 3 ML PEN SC SCH ×3 (08:00→17:15)
[2017-03-27 08:23] LABS: BUN/CREATININE RATIO 18.9 (10-20); CALCIUM 8.7 mg/dl (8.5-10.1); CREATININE 0.72 mg/dl (0.60-1.20); MAGNESIUM 1.6 mg/dl (1.8-2.4); POTASSIUM 4.4 mmol/L (3.5-5.1)
--- NOTE | 2017-03-27 08:27 | Orthopedic Progress Note ---
Orthopedic Progress Note Date of Service Mar 27, 2017. Subjective Post OP Day: 3 Reports: feeling well, pain controlled w PO medications, Denies: complaints, chest pain, SOB, nausea / vomiting, light headedness, calf pain Objective calves soft nontender, N/V intact, capillary refill less than 2 sec., dressing C /D/I, A&O x3, toes mobile Brace on tact. Date Time Temp Pulse Resp B/P (MAP) Pulse Ox O2 Delivery O2 Flow Rate FiO2 03/27/17 07:31 36.2 71 16 134/68 (90) 97 1.0 03/26/17 23:33 36.5 75 17 126/67 (86) 92 Room Air 03/26/17 23:30 Nasal Cannula 1.0 03/26/17 16:00 Nasal Cannula 1.0 03/26/17 15:46 36.5 68 18 127/68 (87) 96 Nasal Cannula 1.0 03/26/17 15:10 36.4 72 16 133/64 (87) 97 Nasal Cannula 2.0 03/26/17 09:45 99 Nasal Cannula 2.0 Laboratory Results 24 Hours: Test 03/27/17 07:29 White Blood Count 8.56 K/uL Red Blood Count 2.79 M/uL Hemoglobin 8.8 g/dL Hematocrit 26.6 % Mean Corpuscular Volume 95.3 fL Mean Corpuscular Hemoglobin 31.5 pg Mean Corpuscular Hemoglobin Concent 33.1 g/dl Platelet Count 148 K/uL Mean Platelet Volume 10.6 fL Neutrophils (%) (Auto) 69.4 % Lymphocytes (%) (Auto) 11.6 % Monocytes (%) (Auto) 13.3 % Eosinophils (%) (Auto) 4.8 % Basophils (%) (Auto) 0.2 % Neutrophils # (Auto) 5.94 K/uL Lymphocytes # (Auto) 0.99 K/uL Monocytes # (Auto) 1.14 K/uL Eosinophils # (Auto) 0.41 K/uL Basophils # (Auto) 0.02 K/uL Assessment & Plan Assessment: proximal tibia and fibula fracture unstable,pod #3 s/p orif tibia and repair patellar tendon avulsion left leg Plan: PT nwb LEFT ,BRACE , 3WEEKS EXTENSION PRIOR TO ANY ROM. Have patient reevaluated by Dr Lowery with back and sciatica issues prior to d/c disposition SNF General ortho will sign off, thank you. Inhouse Planning Pain Management: Ultram, Dilaudid, PO Tylenol, Oxy IR DVT Prophylaxis: Amy Mathis Discharge Planning Discharge Planning: custodial facility
--- NOTE | 2017-03-27 08:31 | Consultant Recommendations ---
Clay Caster Recommendations Date of Service Mar 27, 2017. Clay Caster Recommendations s/p ORIF Left proximal tibia Non weight bearing Left LE with walker and brace. Must wear brace, no knee flexion for 3 weeks. May remove brace for daily dressing changes and wound checks, washing, do no flex knee. Continue Aspirin 81mg BID for 30 days for DVT proph. Follow up w Dr Francois 12-14 days post op, call [phone] for appt.
[2017-03-27 08:43] LABS: COMPLETE YES; LARGE PLATELETS 1+
[2017-03-27] MEDS: OXYCODONE HCL IR 5 MG TAB (IMMEDIATE RELEASE) PO PRN ×2 (09:16→17:39)
[2017-03-27] MEDS: CALCIUM 600MG + VIT D 400 IU TAB PO SCH (09:17)
[2017-03-27] MEDS: LACTOBACILLUS ACIDOPHILUS (FLORANEX) TAB PO SCH (09:17)
[2017-03-27] MEDS: ASPIRIN 81 MG ECTAB PO SCH (09:17)
[2017-03-27] MEDS: GABAPENTIN 100 MG CAP PO SCH ×2 (09:18→13:31)
[2017-03-27] MEDS: SITAGLIPTIN 100 MG TAB PO SCH (09:18)
[2017-03-27] MEDS: NIFEdipine 30 MG CR TAB PO SCH (09:19)
[2017-03-27] MEDS: METOPROLOL SUCC 50MG EXT REL TAB PO SCH (09:19)
[2017-03-27] MEDS: HYDROXYCHLOROQUINE SULFATE 200 MG TAB PO SCH (09:19)
[2017-03-27] MEDS: CYCLOBENZAPRINE HCL 5 MG TAB PO PRN (09:20)
[2017-03-27] MEDS ORDERED: OXYC-609 PO (11:04)
[2017-03-27] MEDS ORDERED: CALCTAB7 PO (11:04)
[2017-03-27] MEDS ORDERED: ASPEC81 PO (11:04)
[2017-03-27] MEDS ORDERED: INSDGIPEN SC (11:04)
--- NOTE | 2017-03-27 11:27 | Discharge Instructions ---
Discharge Instructions Date of Service Mar 27, 2017. Admission Reason for Admission: Tibia/Fibula Fracture Discharge Discharge Diagnosis / Problem: Tibia/Fibula fracture Discharge Goals Goal(s): Improve disease control, Diagnostic testing, Therapeutic intervention Activity Recommendations Activity Level: Assistance Required (as per Ortho instructions below) Therapies: Physical Therapy, Weight Bearing Status (non weight-bearing on left lower extremity x 3 weeks), Occupational Therapy . Additional Information Patient informed of condition: Yes Advance Directives: Yes DNR: No Level of Care: Skilled Communicable Disease: No Prognosis: Stable Oxygen at (LPM): 1-2LNC with exertion [place] Catheter: No Instructions / Follow-Up Instructions / Follow-Up This pt is an 86-year-old female with a h/o HTN, RA, Osteoporosis with multiple compression fractures on chronic opioids, hypothyroidism, DMII, who presented to the emergency department with left leg pain, tib/fib fracture after a mechanical fall. Tib/Fib fracture, patellar tendon avulsion, mechanical fall-s/p ORIF on 03/[address] Francois. Doing well post-op -Appreciate ortho management of fracture -Morphine, dilaudid, oxycodone, and tramadol all available for pain--> upon discharge will give around the clock oxycodone as per pt's request (as opposed to prn) - limitations as per Ortho, non weight bearing left leg with brace on for 3 weeks, recommend extension locked into place when out of bed, must sleep with brace on -PT/OT -to rehab today -ASA 81mg po bid x otal 30 days for DVT prophylaxis -f/u with Ortho in 2 weeks Acute blood loss anemia-hgb dropped to 8.8 from 13.7 preop-some may be dilutional, some from blood loss. Hemodynamically stable -check CBC in 1 week Chronic back pain, Opioid dependence, Vertebral compression fractures subacute, Osteoporosis, Vit D deficiency VIt D low at 22. PTH normal at 68 -is not on any treatment for osteoporosis--> HIGHLY recommend starting treatment with Prolia or even better would be Forteo given her recent fractures as an outpatient -started Calcium + D -recheck Vit D level in 6-8 weeks -f/u with PCP for Osteoporosis treatment -also would recommend transitioning to long acting opioid given opioid dependence and chronic pain--> would start Fentanyl patch 12 mcg but will leave this up to PCP as I am unsure if PCP willing to prescribe this in follow up -continue oxycodone for now -bowel regimen -Lidoderm patch -Ortho Spine consultation recommends getting MRI spine but unable to do so until carl removed from left knee---> f/u Ortho Spine Dr. Teddy Lowery in 2 weeks HTN-BPs now look good -Continue Toprol XL 100 mg daily, Nifedipine XL 30 mg daily -restart losartan/HCTZ on discharge Diabetes mellitus II-HgbA1C is 7.2% here, but with hyperglycemia in the mid 200s which improved after starting Lantus -continue Januvia 100 mg daily -NovoLog insulin sliding scale and glucose checks -ADA diet -continue Lantus 5 units hs but may not need upon discharge from rehab Hypothyroidism-clinically euthyroid -continue Synthroid 75 mcg daily -f/u with PCP Rheumatoid arthritis-on MTX and Plaquenil for years -continue MTX, Plaquenil, Folate DVT prophylaxis -ASA 81 mg bid x 28 more days -DIANA hose to R leg CODE STATUS -CPR ok -NO INTUBATION Dispo-to SNF today Current Hospital Diet Patient's current hospital diet: AHA Diet (Heart Healthy), Diabetes Type 2 Diet Discharge Diet Recommended Diet: AHA Diet (Heart Healthy), Diabetes Type 2 Diet Procedures Procedures Performed: Open Reduction Internal Fixation Left Tibial metaphyseal Fracture and repair patellar tendon avulsion Pending Studies Studies pending at discharge: no Physician Orders On Transfer Special Precautions: Fall risk Dressing Changes: as per Ortho Vital Signs: Routine Additional Orders: Check CBC in 1 week POLST Discussion: Not Applicable Laboratory Results Hemoglobin A1c Test 03/25/17 06:48 Range/Units Estimated Average Glucose 160 mg/dl Hemoglobin A1c 7.2 H 4.5-5.6 % Medical Emergencies . Who to Call and When: Medical Emergencies: If at any time you feel your situation is an emergency, please call 911 immediately. . Non-Emergent Contact Non-Emergency issues call your: Primary Care Provider Call Non-Emergent contact if: you have a fever, your pain is not controlled, your pain is worsening, wound has increased drainage, wound has increased redness, wound has increased pain, you have any medication questions . . "Provider Documentation" section prepared by Jessica Holt. . [facility]mith Recommendations Whitesmith Recommendations: s/p ORIF Left proximal tibia Non weight bearing Left LE with walker and brace. Must wear brace, no knee flexion for 3 weeks. May remove brace for daily dressing changes and wound checks, washing, do no flex knee. Continue Aspirin 81mg BID for 30 days for DVT proph. Follow up w Dr Francois 12-14 days post op, call [phone] for appt. Core Measure Problem Core Measures: None [place] Drug Monitoring Program Search Results: patient reviewed within database, no issues identified
[2017-03-27] MEDS ORDERED: RXC5 PO (11:34)
[2017-03-27] MEDS ORDERED: MAGNESIUM SULFATE 1GM / D5W 1 GM in PREMIXED IN D5W 100 ML IV SCH (12:30)
[2017-03-27 14:18] VITALS: BP 134/68; PULSE 71; TEMP 36.2; O2SAT 97
--- NOTE | 2017-03-27 14:38 | Orthopedic Consultation ---
Orthopedic Consultation Date of Consultation: Mar 27, 2017. Attending Physician: Jessica Holt MD Reason for Consultation: Right leg pain History of Present Illness This is an 86-year-old female that is been hospitalized for a left tibia fracture. She underwent ORIF a few days ago. Her complaint at this time also includes a right sided radicular pain. Involves the right buttock posterior thigh extending to the knee. It is exacerbated with walking and weightbearing. She's asymptomatic wound bed. She states the symptoms have been present for several weeks. She does have a known compression fracture of T12. Past Medical/Surgical History Medical Problems: (1) Acute back pain Status: Acute (2) Compression fracture Status: Acute (3) Compression fracture of L4 lumbar vertebra Status: Acute (4) Fall Status: Acute (5) Left fibular fracture Status: Acute (6) Left tibial fracture Status: Acute (7) Pulmonary nodule Status: Acute Family History Cancer Diabetes mellitus Heart disease Hypertension Social History Smoking Status: Never Smoker Drug Use: none Marital Status: Housing Status: assisted living Occupation Status: retired Allergies Coded Allergies: Amoxicillin (Unverified Allergy, Mild, RASH, 03/23/17) Naproxen (Unverified Allergy, Mild, RASH, 03/23/17) Home Medications Scheduled Aspirin (Aspirin EC Low Dose), 81 MG PO BID Calcium Carbonate-Vitamin D W/ (Caltrate 600 Plus), 1 TAB PO BID Folic Acid (Folvite), 1 MG PO TID Gabapentin (Neurontin), 100 MG PO TID Hctz/Losartan (Hyzaar 12.5MG/50MG), 1 TAB PO DAILY Hydroxychloroquine Sulfate (Plaquenil), 200 MG PO BID Insulin Glargine (Lantus Solostar), 5 UNITS SC HS Levothyroxine Sodium (Levothyroxine Sodium), 75 MCG PO DAILY Methotrexate (Methotrexate), 10 MG PO WK Metoprolol Succinate (Metoprolol Succinate ER), 100 MG PO DAILY Nifedipine Ext Rel (Procardia Xl Ext Rel), 30 MG PO DAILY Oxycodone HCl (Oxycodone HCl), 5 MG PO Q4HWA Polyethylene (Polyethylene Glycol 3350), 1 DOSE PO Q2D Probiotic Product (Align), 4 MG PO DAILY Sitagliptin Phosphate (Januvia), 100 MG PO DAILY Temazepam (Temazepam), 7.5 MG PO QPM Scheduled PRN Acetaminophen (Tylenol), 500-1,000 MG PO BID PRN for Breakthrough Pain Artificial Saliva (Biotene Moisturizing Mout), 1 SPRAY OR UD PRN for Dryness Cyclobenzaprine Hcl (Flexeril), 5 MG PO TID PRN for Muscle Spasm Docusate Sodium (Docqlace), 100 MG PO DAILY PRN for Constipation Ausixuap-Xvypwkwyymbk-Dmmwvstc (Artificial Tears), 1 DROP OP UD PRN for Dry Eye( s) Lidocaine (Lidocaine), 1 PATCH TOP DAILY PRN for Posthepetic Neuralgia Sennosides-Docusate Sodium (Sennalax-S), 2 TBS PO HS PRN for Constipation Current Inpatient Medications Current Inpatient Medications Medications (Trade) Dose Ordered Sig/Alejandra Route Start Time Stop Time Status Last Admin Dose Admin Morphine Sulfate (MoRPHine SULFATE INJ) 2 mg Q2H PRN IV 03/23/17 20:15 04/06/17 20:14 03/26/17 23:58 2 MG Acetaminophen (Tylenol Tab) 650 mg Q4H PRN PO 03/23/17 21:00 04/22/17 20:59 Future Hold Al Hydrox/Mg Hydrox/Simethicone (Maalox Max Susp) 15 ml Q4H PRN PO 03/23/17 21:00 04/22/17 20:59 Magnesium Hydroxide (Milk Of Magnesia Susp) 30 ml Q6H PRN PO 03/23/17 21:00 04/22/17 20:59 03/26/17 09:16 30 ML Polyethylene (Miralax Powder Packet) 17 gm DAILY PRN PO 03/23/17 21:15 04/22/17 21:14 Ondansetron HCl (Zofran Inj) 4 mg Q6H PRN IV 03/23/17 21:00 04/22/17 20:59 Hydralazine HCl (HydrALAZINE INJ) 10 mg Q6H PRN IV. 03/23/17 21:00 04/22/17 20:59 Cyclobenzaprine HCl (Flexeril Tab) 5 mg TID PRN PO 03/23/17 21:00 04/22/17 20:59 03/27/17 09:20 5 MG Folic Acid (Folvite Tab) 1 mg TID PO 03/23/17 21:00 04/22/17 20:59 03/27/17 13:31 1 MG Gabapentin (Neurontin Cap) 100 mg TID PO 03/23/17 21:00 04/22/17 20:59 03/27/17 13:31 100 MG Hydroxychloroquine Sulfate (Plaquenil Tab) 200 mg BID PO 03/23/17 21:00 04/22/17 20:59 03/27/17 09:19 200 MG Levothyroxine Sodium (Synthroid Tab) 75 mcg DAILYBB PO 03/24/17 06:00 04/23/17 05:59 03/27/17 05:50 75 MCG Lidocaine (Lidoderm Patch 5%) 1 patch DAILY PRN TD 03/23/17 21:00 04/22/17 20:59 Nifedipine (Procardia Xl Tab) 30 mg DAILY PO 03/24/17 09:00 04/23/17 08:59 03/27/17 09:19 30 MG Temazepam (Restoril Cap) 7.5 mg QPM PO 03/23/17 22:30 04/22/17 22:29 03/26/17 21:26 7.5 MG Glucose (Glucose 40% Gel) 15-30 GRAMS 15 GRAMS... UD PRN PO 03/23/17 21:30 04/22/17 21:29 Glucose (Glucose Chew Tab) 4-8 Tablets 4 Tabl... UD PRN PO 03/23/17 21:30 04/22/17 21:29 Dextrose (Dextrose 50% 50ML Syringe) 25-50ML OF 50% DW IV FOR... UD PRN IV 03/23/17 21:30 04/22/17 21:29 Glucagon (Glucagon Inj) 1 mg UD PRN SQ 03/23/17 21:30 04/22/17 21:29 Sitagliptin Phosphate (Januvia Tab) 100 mg DAILY PO 03/25/17 09:00 04/24/17 08:59 03/27/17 09:18 100 MG Metoprolol Succinate (Toprol Xl Tab) 100 mg DAILY PO 03/25/17 09:00 04/24/17 08:59 03/27/17 09:19 100 MG Lactobacillus Acidophilus (Floranex Tab) 4 tab DAILY PO 03/25/17 09:00 04/24/17 08:59 03/27/17 09:17 4 TAB Calcium/Vitamin D (Caltrate Plus Tab) 1 tab BID PO 03/24/17 21:00 04/23/17 20:59 03/27/17 09:17 1 TAB Acetaminophen (Tylenol Tab) 1,000 mg Q8H PO 03/24/17 22:00 04/23/17 21:59 03/27/17 13:32 1,000 MG Magnesium Hydroxide (Milk Of Magnesia Susp) 30 ml Q6H PRN PO 03/24/17 13:00 04/23/17 12:59 Bisacodyl (Dulcolax Supp) 10 mg DAILY PRN OR 03/24/17 13:00 04/23/17 12:59 Tramadol HCl (Ultram Tab) @ Q4H PRN PO 03/24/17 13:00 04/23/17 12:59 03/27/17 05:52 100 MG Oxycodone HCl (Roxicodone Immediate Rel Tab) 5 mg Q4HWA PRN PO 03/24/17 13:00 04/07/17 12:59 03/27/17 09:16 5 MG Hydromorphone HCl (Dilaudid Inj) 0.5 mg Q4HWA PRN IV 03/24/17 13:00 04/07/17 12:59 Insulin Aspart (novoLOG ASPART) SLIDING SCALE G... ACHS SC 03/24/17 21:00 04/23/17 05:59 03/27/17 13:34 3 UNITS Aspirin (Ecotrin Tab) 81 mg BID PO 03/26/17 09:00 04/25/17 08:59 03/27/17 09:17 81 MG Insulin Glargine (Lantus Solostar Pen) 5 units HS SC 03/26/17 21:00 04/25/17 20:59 03/26/17 21:28 5 UNITS Physical Exam Date Time Temp Pulse Resp B/P (MAP) Pulse Ox O2 Delivery O2 Flow Rate FiO2 03/27/17 14:18 36.2 71 16 97 Nasal Cannula 03/27/17 07:31 36.2 71 16 134/68 (90) 97 1.0 03/27/17 07:30 Nasal Cannula 1.0 03/26/17 23:33 36.5 75 17 126/67 (86) 92 Room Air 03/26/17 23:30 Nasal Cannula 1.0 03/26/17 16:00 Nasal Cannula 1.0 03/26/17 15:46 36.5 68 18 127/68 (87) 96 Nasal Cannula 1.0 03/26/17 15:10 36.4 72 16 133/64 (87) 97 Nasal Cannula 2.0 Physical exam she is able to lift her right leg off of the bed without difficulty. She exhibits of pus 5 over 5 right plantarflexion dorsiflexion quadriceps. Sensory is intact. The left lower extremity is immobilized is status post ORIF. Laboratory Results Last 24 Hours Test 03/26/17 17:08 03/26/17 20:45 03/27/17 07:29 03/27/17 07:44 Bedside Glucose 117 mg/dl 231 mg/dl 119 mg/dl White Blood Count 8.56 K/uL Red Blood Count 2.79 M/uL Hemoglobin 8.8 g/dL Hematocrit 26.6 % Mean Corpuscular Volume 95.3 fL Mean Corpuscular Hemoglobin 31.5 pg Mean Corpuscular Hemoglobin Concent 33.1 g/dl Platelet Count 148 K/uL Mean Platelet Volume 10.6 fL Neutrophils (%) (Auto) 69.4 % Lymphocytes (%) (Auto) 11.6 % Monocytes (%) (Auto) 13.3 % Eosinophils (%) (Auto) 4.8 % Basophils (%) (Auto) 0.2 % Neutrophils # (Auto) 5.94 K/uL Lymphocytes # (Auto) 0.99 K/uL Monocytes # (Auto) 1.14 K/uL Eosinophils # (Auto) 0.41 K/uL Basophils # (Auto) 0.02 K/uL RDW Standard Deviation 51.9 fL RDW Coefficient of Variation 15.1 % Immature Granulocyte % (Auto) 0.7 % Immature Granulocyte # (Auto) 0.06 K/uL Large Platelets 1+ Sodium Level 135 mmol/L Potassium Level 4.4 mmol/L Chloride Level 101 mmol/L Carbon Dioxide Level 31 mmol/L Anion Gap 3.0 mmol/L Blood Urea Nitrogen 14 mg/dl Creatinine 0.72 mg/dl Est Creatinine Clear Calc Drug Dose 39.6 ml/min Estimated GFR () 89.1 Estimated GFR (Non- 76.9 BUN/Creatinine Ratio 18.9 Random Glucose 115 mg/dl Calcium Level 8.7 mg/dl Magnesium Level 1.6 mg/dl Test 03/27/17 11:50 Bedside Glucose 173 mg/dl Assessment & Plan Assessment right sciatica. Plan at this time she is recovering from fairly significant fracture on the left proximal tibia. She currently has carl in place. We would recommend an MRI of the lumbar spine the next few weeks when she is stable. We'll make further conditions upon review.
[2017-03-27 15:06] VITALS: BP 127/66; PULSE 71; TEMP 36.4; O2SAT 92
--- NOTE | 2017-03-31 15:54 | Discharge Summary ---
Discharge Summary Date of Service Mar 27, 2017. Discharge Summary Admission Date: Mar 23, 2017 at 20:49 Discharge Date: Mar 27, 2017 Discharge Disposition: [facility] facility Principal Diagnosis: Left tibia/fibula fracture Problems/Secondary Diagnoses: HTN RA Osteoporosis with multiple vertebral compression fractures Chronic opioid and benzodiazepine dependence Hypothyroidism DMII Acute blood loss anemia Chronic back pain Vitamin D deficiency Immunizations: Have You Had Influenza Vaccine: Yes Influenza Vaccine Date: May 01, 2012 History of Tetanus Vaccine?: No History of Pneumococcal: Yes Pneumococcal Date: May 01, 2012 History of Hepatitis B Vaccine: No Procedures: 1. Left open reduction internal fixation of proximal tibial metaphyseal fracture including repair of patellar tendon avulsion fracture 2. LEFT TIBIA AND FIBULA 2 VIEWS CLINICAL HISTORY: Left leg deformity. FINDINGS: AP and crosstable lateral portable views of the left tibia and fibula are obtained. No prior studies are available for comparison at the time of dictation. The examination is performed through a splint, obscuring fine bony detail. The skeletal structures are osteopenic. There is a fracture through the fibular head with medial distraction of the distal fragment by approximately 8 mm. There is a comminuted and horizontally oriented fracture through the proximal tibial metaphysis. There is approximately 4 mm of medial offset of the distal fragment as well as mild apex volar angulation. There is no clear intra-articular extension. Overlying soft tissue edema is noted. The knee and ankle joints are grossly maintained. There is a large plantar calcaneal enthesophyte. IMPRESSION: Proximal tibial and fibular fractures as above with overlying soft tissue edema. 3. CHEST ONE VIEW PORTABLE CLINICAL HISTORY: Trauma trauma COMPARISON STUDY: 03/09/2016 FINDINGS: Mild cardiomegaly. Lungs are clear. Deformity left humeral head considered old. IMPRESSION: No acute process. 4. LEFT KNEE 1 OR 2 VIEWS CLINICAL HISTORY: LEFT ORIF PROXIMAL TIB FX Fluoroscopy time: 65 seconds. FINDINGS: 3 fluoroscopic spot images of the proximal left tibia. Patient is status post internal fixation of the proximal tibial fracture with a cortical plate and screws. The hardware appears intact. There is improved anatomic alignment. There is also evidence for a fibular neck fracture. IMPRESSION: Fluoroscopy provided for internal fixation of the proximal tibial fracture. Consultations: Orthopedics Orthopedic Spine Medication Reconciliation New Medications: Aspirin (Aspirin EC Low Dose) 81 Mg Ectab 81 MG PO BID for 28 Days Calcium Carbonate-Vitamin D W/ (Caltrate 600 Plus) 1 Tab Tab 1 TAB PO BID for 30 Days, #60 TAB Insulin Glargine (Lantus Solostar) 100 Unit/Ml Inj 5 UNITS SC HS for 30 Days Continued Medications: Acetaminophen (Tylenol) 500 Mg Tab 500-1000 MG PO BID PRN for Breakthrough Pain, TAB MAXIMUM 3 GM APAP/24 HOURS Artificial Saliva (Biotene Moisturizing Mout) 1 Spr Spr 1 SPRAY OR UD PRN for Dryness Cyclobenzaprine Hcl (Flexeril) 5 Mg Tab 5 MG PO TID PRN for Muscle Spasm, TAB Docusate Sodium (Docqlace) 100 Mg Cap 100 MG PO DAILY PRN for Constipation Folic Acid (Folvite) 1 Mg Tab 1 MG PO TID, TAB Gabapentin (Neurontin) 100 Mg Cap 100 MG PO TID, CAP Dycvwczn-Tkkpboppxjhz-Yodbiaup (Artificial Tears) 1 Refugio Refugio 1 DROP OP UD PRN for Dry Eye(s) Hctz/Losartan (Hyzaar 12.5MG/50MG) Tab 1 TAB PO DAILY, TAB Hydroxychloroquine Sulfate (Plaquenil) 200 Mg Tab 200 MG PO BID, TAB Levothyroxine Sodium (Levothyroxine Sodium) 75 Mcg Tab 75 MCG PO DAILY Lidocaine (Lidocaine) 5 % Pad 1 PATCH TOP DAILY PRN for Posthepetic Neuralgia NEEDED FOR PAIN, ON AT 0900 HOURS OFF AT 2000 HOURS Methotrexate (Methotrexate) 2.5 Mg Tab 10 MG PO WK, TAB TAKE 4 TABLETS EVERY THURSDAY Metoprolol Succinate (Metoprolol Succinate ER) 100 Mg Tabcr 100 MG PO DAILY Nifedipine Ext Rel (Procardia Xl Ext Rel) 30 Mg Tabcr 30 MG PO DAILY, TAB Oxycodone HCl (Oxycodone HCl) 5 Mg Tab 5 MG PO Q4H PRN for Pain for 3 Days, #12 TAB (This prescription has been renewed ) Polyethylene (Polyethylene Glycol 3350) 527 Gm Soln 1 DOSE PO Q2D, #255 Probiotic Product (Align) 4 Mg Cap 4 MG PO DAILY Sennosides-Docusate Sodium (Sennalax-S) 1 Tab Tab 2 TBS PO HS PRN for Constipation Sitagliptin Phosphate (Januvia) 100 Mg Tab 100 MG PO DAILY, TAB Temazepam (Temazepam) 7.5 Mg Cap 7.5 MG PO QPM Discontinued Medications: Loperamide Hcl (Imodium) 2 Mg Cap 2 MG PO TID PRN for Diarrhea, CAP Menthol-Methyl Salicylate (Chanel (Thera-Gesic) 1 Cre Cre 1 APPLN TOP UD PRN for Soreness Neomycin-Bacitracin Zn-Polymyx (Triple Antibiotic) 1 Oin Oin 1 APPLN TOP Wound Care Discharge Exam Review of Systems: Constitutional: No fever Eyes: No problem reported ENT: No problem reported Respiratory: No shortness of breath Cardiovascular: No chest pain Abdomen: No pain, No nausea, No vomiting, No constipation Musculoskeletal: + joint pain (left knee, mid back) Genitourinary - Female: No problem reported Neurologic: No problem reported Psychiatric: No problem reported Endocrine: No problem reported Hematologic / Lymphatic: No problem reported Integumentary: No problem reported Physical Exam: General Appearance: WD/WN, no apparent distress Eyes: normal inspection, sclerae normal ENT: hearing grossly normal Neck: trachea midline Respiratory/Chest: lungs clear, normal breath sounds, no respiratory distress, no accessory muscle use Cardiovascular: regular rate, rhythm, no edema, no gallop, no murmur, normal peripheral pulses Abdomen / GI: normal bowel sounds, non tender, soft, no organomegaly, no pulsatile mass Extremities: no pedal edema, + pertinent finding (left lower extremity in brace and JEFF wrap, moving toes and sensation in left foot intact) Neurologic/Psychiatric: alert, normal mood/affect, oriented x 3 Skin: normal color, warm/dry, no rash Hospital Course This pt is an 86-year-old female with a h/o HTN, RA, Osteoporosis with multiple compression fractures on chronic opioids, hypothyroidism, DMII, who presented to the emergency department with left leg pain, tib/fib fracture after a mechanical fall. Tib/Fib fracture, patellar tendon avulsion, mechanical fall-s/p ORIF on 03/[address] Francois. Doing well post-op -Appreciate ortho management of fracture -Morphine, dilaudid, oxycodone, and tramadol all available for pain--> upon discharge will give around the clock oxycodone as per pt's request (as opposed to prn) - limitations as per Ortho, non weight bearing left leg with brace on for 3 weeks, recommend extension locked into place when out of bed, must sleep with brace on -PT/OT -to rehab today -ASA 81mg po bid x otal 30 days for DVT prophylaxis -f/u with Ortho in 2 weeks Acute blood loss anemia-hgb dropped to 8.8 from 13.7 preop-some may be dilutional, some from blood loss. Hemodynamically stable -check CBC in 1 week Chronic back pain, Opioid dependence, Vertebral compression fractures subacute, Osteoporosis, Vit D deficiency VIt D low at 22. PTH normal at 68 -is not on any treatment for osteoporosis--> HIGHLY recommend starting treatment with Prolia or even better would be Forteo given her recent fractures as an outpatient -started Calcium + D -recheck Vit D level in 6-8 weeks -f/u with PCP for Osteoporosis treatment -also would recommend transitioning to long acting opioid given opioid dependence and chronic pain--> would start Fentanyl patch 12 mcg but will leave this up to PCP as I am unsure if PCP willing to prescribe this in follow up -continue oxycodone for now -bowel regimen -Lidoderm patch -Ortho Spine consultation recommends getting MRI spine but unable to do so until carl removed from left knee---> f/u Ortho Spine Dr. Teddy Lowery in 2 weeks HTN-BPs now look good -Continue Toprol XL 100 mg daily, Nifedipine XL 30 mg daily -restart losartan/HCTZ on discharge Diabetes mellitus II-HgbA1C is 7.2% here, but with hyperglycemia in the mid 200s which improved after starting Lantus -continue Januvia 100 mg daily -NovoLog insulin sliding scale and glucose checks -ADA diet -continue Lantus 5 units hs but may not need upon discharge from rehab Hypothyroidism-clinically euthyroid -continue Synthroid 75 mcg daily -f/u with PCP Rheumatoid arthritis-on MTX and Plaquenil for years -continue MTX, Plaquenil, Folate DVT prophylaxis -ASA 81 mg bid x 28 more days -DIANA hose to R leg CODE STATUS -CPR ok -NO INTUBATION Dispo-to SNF today Total Time Spent: Greater than 30 minutes This includes examination of the patient, discharge planning, medication reconciliation, and communication with other providers. Discharge Instructions Please refer to the electronic Patient Visit Report (Discharge Instructions) for additional information. Follow-Up Ortho 2 weeks Ortho Spine 2 weeks PCP within 1 week after dc from [facility] Additional Copies To Keron Merino M.D.
== END 2017-03-27 18:38 | DRG 493 ==
LOC: C.EDC 17:38 → EDBD 17:38 → C.MSN 20:49 → ENRESERV 21:01
PROVIDERS: ADMIT Internal Medicine; ATTEND Family Medicine
PROC: 0QSH04Z Reposition Left Tibia with Internal Fixation Device, Open Approach (ICD-10-PCS; principal; 2017-03-24 07:15)
PROC: 0LQN0ZZ Repair Right Lower Leg Tendon, Open Approach (ICD-10-PCS; principal; 2017-03-24 07:15)
DX: S82.221A Displaced transverse fracture of shaft of right tibia, initial encounter for closed fracture (principal); M48.54XA Collapsed vertebra, not elsewhere classified, thoracic region, initial encounter for fracture; F11.20 Opioid dependence, uncomplicated; D62 Acute posthemorrhagic anemia; S82.831A Other fracture of upper and lower end of right fibula, initial encounter for closed fracture; S76.191A Other specified injury of right quadriceps muscle, fascia and tendon, initial encounter; E11.65 Type 2 diabetes mellitus with hyperglycemia; E03.9 Hypothyroidism, unspecified; M19.90 Unspecified osteoarthritis, unspecified site; M81.0 Age-related osteoporosis without current pathological fracture; I10 Essential (primary) hypertension; M06.9 Rheumatoid arthritis, unspecified; E78.5 Hyperlipidemia, unspecified; M54.31 Sciatica, right side; E55.9 Vitamin D deficiency, unspecified; Z79.899 Other long term (current) drug therapy; Z80.9 Family history of malignant neoplasm, unspecified; Z83.3 Family history of diabetes mellitus; Z82.49 Family history of ischemic heart disease and other diseases of the circulatory system; W01.0XXA Fall on same level from slipping, tripping and stumbling without subsequent striking against object, initial encounter; Y92.480 Sidewalk as the place of occurrence of the external cause

== ENCOUNTER 2017-09-13 17:36 | Inpatient (IN) | payer OTHER ==
[~2017-09-13] VITALS: Ht 142.2 cm; Wt 51.7 kg
[~2017-09-13 17:36] MED LIST changes: +ASPEC81 PO; +CALCTAB7 PO; -DEXTLIQ PO; -FOLI1TAB7 PO; +FOLI1TAB8 PO; +HYZ/50125 PO; -IMD/2 PO; +INSDGIPEN SC; -LINICRE TOP; +MRLP527 PO; -NEOMOIN76 TOP; +NIFE30TA83 PO; -NYST100010 TOP; -OXYC-609 PO; +RXC5 PO; +SENN1TAB86 PO; -SENN8.6T15 PO; -SULF800T23 PO
--- NOTE | 2017-09-13 17:57 | EMERGENCY ROOM VISIT NOTE ---
History Report prepared by [place]: Jared Hill Under the Supervision of: Dr. Freeman Woodson M.D. First contact with patient: 17:38 Stated Complaint: BACK PAIN History of Present Illness The patient is an 86 year old female who presents to the Emergency Room with complaints of worsening back pain for the past 3-4 days which is worsened with palpation. The patient had a fall 3-4 days ago while trying to get in her wheel chair that was unlocked. She reports that she did not pass out. She states that she did not hit her head, and she is not on any blood thinners. The patient is additionally having right sided abdominal pain and right flank pain. She denies any fever, hematuria, weakness in her legs, chest pain, and shortness of breath. The patient has been ambulating since the fall. Additionally, the patient has recently has MRIs for her back. Source of History: patient, EMS Onset: 3-4 days ago Position: back Timing: worsening Modifying Factors (Worsening): other (palpation) Associated Symptoms: + abdominal pain, No fevers, No chest pain, No SOB, No urinary symptoms, No weakness Review of Systems See HPI for pertinent positives & negatives. A total of 10 systems reviewed and were otherwise negative. Past Medical & Surgical Medical Problems: (1) Diabetes (2) Dyslipidemia (3) Hypertension (4) Hypothyroidism (5) Intractable back pain (6) Thoracic compression fracture (7) Tibia/fibula fracture (8) UTI (urinary tract infection) Old medical records were reviewed. Nurse's notes were reviewed and I agree with. Family History Cancer Diabetes mellitus Heart disease Hypertension Social History Smoking Status: Never Smoker Alcohol Use: none Drug Use: none Marital Status: Housing Status: assisted living Occupation Status: retired Current/Historical Medications Scheduled Aspirin (Aspirin Ec), 81 MG PO QAM Calcium Carbonate-Vitamin D W/ (Caltrate 600 Plus), 1 TAB PO QAM Folic Acid (Folvite), 1 MG PO TID Gabapentin (Neurontin), 100 MG PO TID Hctz/Losartan (Hyzaar 12.5MG/50MG), 1 TAB PO DAILY Hydroxychloroquine Sulfate (Plaquenil), 200 MG PO BID Levothyroxine Sodium (Levothyroxine Sodium), 75 MCG PO QAM Methotrexate (Methotrexate), 10 MG PO WK Metoprolol Succinate (Metoprolol Succinate ER), 100 MG PO QAM Nifedipine Ext Rel (Procardia Xl Ext Rel), 30 MG PO QAM Probiotic Product (Align), 4 MG PO QAM Sitagliptin Phosphate (Januvia), 100 MG PO QAM Temazepam (Temazepam), 7.5 MG PO HS Scheduled PRN Acetaminophen (Tylenol), 650 MG PO Q4H PRN for Pain or Fever Artificial Tear Solution (Artificial Tears), 1 DROPS OP DIRECTED PRN for DRYNESS Cyclobenzaprine Hcl (Flexeril), 5 MG PO TID PRN for Muscle Spasm Lidocaine (Lidocaine), 1 PATCH TOP DAILY PRN for Posthepetic Neuralgia Mouthwashes (Biotene Dry Mouth Gentle), 1 SPRAY PO DIRECTED PRN for DRYNESS Ondansetron Hcl (Zofran), 4 MG PO Q4H PRN for Nausea Oxycodone HCl (Oxycodone HCl), 5 MG PO BID PRN for Pain Polyethylene (Polyethylene Glycol 3350), 1 DOSE PO DAILY PRN for Constipation Sennosides-Docusate Sodium (Sennalax-S), 2 TBS PO HS PRN for Constipation Allergies Coded Allergies: Amoxicillin (Verified Allergy, Mild, RASH, 09/13/17) Naproxen (Verified Allergy, Mild, RASH, 09/13/17) Physical Exam Vital Signs Date Time Temp Pulse Resp B/P (MAP) Pulse Ox O2 Delivery O2 Flow Rate FiO2 09/13/17 19:30 72 20 116/44 96 Room Air 09/13/17 18:55 70 17 124/59 96 Room Air 09/13/17 17:47 36.5 72 18 127/55 95 Room Air Physical Exam General: Non-ill appearing older female in no acute distress. HEENT: Normal cephalic atraumatic. Pupils are equal round and reactive to light. Extraocular movements are intact. Oropharynx is pink with moist mucous membranes. No swelling of the mouth lips or tongue. Neck: Supple with a midline trachea. No meningeal signs or stiffness, no JVD or bruits. No Stridor. Chest: Clear to auscultation bilaterally. No wheezes or rhonchi. No increased work of breathing. Heart: regular rate and rhythm. Abdomen: Soft nontender, nondistended without rebound guarding or rigidity. Extremities: No cyanosis clubbing or edema. No calf tenderness or assymetry Spine/Back. Tenderness to palpation in the right flank and towards the central lumbar area. Skin: Good turgor without rashes. Neurologic exam: Cranial nerves two through 12 are intact. Motor and sensation are intact and symmetrical throughout. Medical Decision & Procedures ER Provider Diagnostic Interpretation: Radiology results as stated below per my review and radiologist interpretation: CHEST ONE VIEW PORTABLE HISTORY: 86 years-old Female CHEST PAIN acute atypical chest pain COMPARISON: Chest radiograph 03/23/2017 TECHNIQUE: Portable AP view of the chest FINDINGS: Cardiac silhouette is again mildly enlarged. Atherosclerosis of the aorta. Patient is mildly rotated to the left. There is no pneumothorax or pleural effusion. Hazy ill-defined subsegmental opacity of the lateral left lung base with patchy right basilar opacities. Bones appear moderately demineralized. Chronic fracture deformity of the proximal left humerus. IMPRESSION: 1. Subtle bibasilar opacities suggest atelectasis or pneumonitis. 3. Chronic fracture deformity of the proximal left humerus. The above report was generated using voice recognition software. It may contain grammatical, syntax or spelling errors. Electronically signed by: Kev Narayan M.D. 09/13/2017 7:38 PM Dictated Date/Time: 09/13/2017 7:36 PM LUMBAR SPINE WITHOUT HISTORY: 86 years-old Female eval for trauma acute back pain status post recent fall COMPARISON: Lumbar spine CT 02/22/2017, CT abdomen and pelvis of same day TECHNIQUE: Multiple axial CT images of the lumbar spine were obtained without contrast. A dose lowering technique was used consistent with the principals of ALARA. FINDINGS: There is an acute to subacute appearing compression deformity at L4 involving the anterior and middle columns with 40% loss of vertebral body height. There is 3 mm retropulsion which results in mild central canal stenosis. No fracture extension into the pedicles or posterior elements. Chronic compression deformity at T12 with marked loss of the anterior vertebral body height appears unchanged with focal mild kyphosis at this level. 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 Multilevel facet arthrosis and endplate spurring with moderately demineralized appearance of the bones. No additional acute fracture or subluxation identified. Sacrum appears intact. No significant intervertebral disc space narrowing. Linear subsegmental bibasilar opacities suggest atelectasis. No acute intra-abdominal abnormality identified. IMPRESSION: 1. Acute to subacute appearing compression deformity at L4 involves the anterior and middle columns with 40% loss of vertebral body height. 3 mm retropulsion results in mild central canal stenosis. 2. Chronic compression deformity at T12 with marked loss of the anterior vertebral body height appears unchanged. Mild focal kyphotic curvature centered at this level. 3. Moderately demineralized appearance of the bones. The above report was generated using voice recognition software. It may contain grammatical, syntax or spelling errors. Electronically signed by: Kev Narayan M.D. 09/13/2017 8:03 PM Dictated Date/Time: 09/13/2017 7:58 PM ABDOMEN AND PELVIS CT WITH IV CONTRAST HISTORY: Acute low back pain with recent fall eval for trauma TECHNIQUE: Multiaxial CT images of the abdomen and pelvis were performed following the use of intravenous contrast. A dose lowering technique was utilized adhering to the principles of ALARA. COMPARISON STUDY: CT lumbar spine of same day, CT abdomen and pelvis 03/09/2016. FINDINGS: Study is limited secondary to patient motion and positioning of the patient's arms. Mild subsegmental bibasilar atelectasis. There is no pneumatosis or pneumoperitoneum identified. Coronary arterial disease. Imaged inferior cardiac chambers are mildly enlarged. Scattered low attenuating lesions throughout the liver are again noted measuring up to 1.3 cm within the right hepatic lobe appear unchanged suggesting hepatic cysts. No intrahepatic biliary ductal dilation identified. The gallbladder, spleen and right adrenal gland are unremarkable. Mild nodular thickening of the left adrenal gland. There is marked generalized atrophy of the pancreas. Previously described cystic foci of the pancreas are not as well seen on today's study secondary to patient motion. Kidneys, ureters and urinary bladder are within normal limits. No ascites. Ossifications of the uterus suggests calcified fibroid measuring up to 8 mm. Indeterminate calcifications are also seen within the left adnexal region. Moderate to extensive atherosclerosis of the aorta without aneurysm. No bulky adenopathy. There is no bowel obstruction or focal bowel wall thickening identified. Duodenal diverticulum. Moderate colonic diverticulosis without diverticulitis. Moderate volume of formed stool throughout the colon suggest constipation. Normal appendix. Mild diastases recti. Soft tissues appear to be unremarkable. The bones appear moderately demineralized. There is mild cortical irregularity and sclerosis involving the anterolateral left sixth rib seen on image 48 series 3 which appears new from prior study suspicious for acute subacute nondisplaced fracture. Compression fracture of the L4 vertebral body with 3 mm retropulsion is noted in addition to a chronic appearing compression forming of the T12 vertebral body. Finding and T12 is remote and the fracture at L4 is new from comparison study 03/09/2016. IMPRESSION: 1. Acute to subacute appearing compression deformity of L4 involves the anterior and middle columns with 3 mm retropulsion, further discussed on CT lumbar spine of same day. This is new from comparison study 03/09/2016. 2. Remote compression deformity at T12. 3. Suggested constipation. 5. Moderately motion degraded study with additional findings as above. Electronically signed by: Kev Narayan M.D. 09/13/2017 7:53 PM Dictated Date/Time: 09/13/2017 7:41 PM Laboratory Results 09/13/17 17:55 Red Blood Count 4.31, Mean Corpuscular Volume 91.0, Mean Corpuscular Hemoglobin 31.1, Mean Corpuscular Hemoglobin Concent 34.2, Mean Platelet Volume 10.5, Neutrophils (%) (Auto) 70.8, Lymphocytes (%) (Auto) 14.4, Monocytes (%) (Auto) 7.5, Eosinophils (%) (Auto) 6.4, Basophils (%) (Auto) 0.4, Neutrophils # (Auto) 6.87, Lymphocytes # (Auto) 1.40, Monocytes # (Auto) 0.73, Eosinophils # (Auto) 0.62, Basophils # (Auto) 0.04 09/13/17 17:55 Test 09/13/17 17:55 09/13/17 18:03 White Blood Count 9.71 K/uL (4.8-10.8) Red Blood Count 4.31 M/uL (4.2-5.4) Hemoglobin 13.4 g/dL (12.0-16.0) Hematocrit 39.2 % (37-47) Mean Corpuscular Volume 91.0 fL (80-100) Mean Corpuscular Hemoglobin 31.1 pg (25-34) Mean Corpuscular Hemoglobin Concent 34.2 g/dl (32-36) Platelet Count 208 K/uL (130-400) Mean Platelet Volume 10.5 fL (7.4-10.4) Neutrophils (%) (Auto) 70.8 % Lymphocytes (%) (Auto) 14.4 % Monocytes (%) (Auto) 7.5 % Eosinophils (%) (Auto) 6.4 % Basophils (%) (Auto) 0.4 % Neutrophils # (Auto) 6.87 K/uL (1.4-6.5) Lymphocytes # (Auto) 1.40 K/uL (1.2-3.4) Monocytes # (Auto) 0.73 K/uL (0.11-0.59) Eosinophils # (Auto) 0.62 K/uL (0-0.5) Basophils # (Auto) 0.04 K/uL (0-0.2) RDW Standard Deviation 52.2 fL (36.4-46.3) RDW Coefficient of Variation 15.8 % (11.5-14.5) Immature Granulocyte % (Auto) 0.5 % Immature Granulocyte # (Auto) 0.05 K/uL (0.00-0.02) Prothrombin Time 10.0 SECONDS (9.0-12.0) Prothromb Time International Ratio 1.0 (0.9-1.1) Activated Partial Thromboplast Time 25.7 SECONDS (21.0-31.0) Partial Thromboplastin Ratio 1.0 Anion Gap 4.0 mmol/L (3-11) Est Creatinine Clear Calc Drug Dose 24.0 ml/min Estimated GFR () 49.6 Estimated GFR (Non- 42.8 BUN/Creatinine Ratio 23.3 (10-20) Calcium Level 9.5 mg/dl (8.5-10.1) Bedside Troponin I < 0.030 ng/ml (0-0.045) Laboratory studies as stated above per my review. Medications Administered Medications (Trade) Dose Ordered Sig/Alejandra Route Start Time Stop Time Status Last Admin Dose Admin Ondansetron HCl (Zofran Inj) 4 mg NOW STAT IV 09/13/17 18:49 09/13/17 18:50 DC 09/13/17 18:53 4 MG Morphine Sulfate (MoRPHine SULFATE INJ) 2 mg NOW STAT IV 09/13/17 18:49 09/13/17 18:50 DC 09/13/17 18:54 2 MG ECG Indication: back/shoulder pain Rate (beats per minute): 79 Rhythm: normal sinus Findings: PVC (occasional), no acute ischemic change, other (LVH) Comparison ECG Date: no prior available ED Course 1737: Past medical records reviewed. The patient was evaluated in room C9, and a complete history and physical examination were performed. 1848: Morphine Sulfate 2mg IV, Zofran 4 mg IV 1850: I reevaluated the patient, and her daughter is here. She notes that the patient actually fell a week ago. 2001: Upon reevaluation, the patient is resting. I discussed the results and treatment plan with the patient. She verbalized agreement of the treatment plan. The patient will be evaluated for further management. 2007: I discussed the patient's case with Dr. Lowery - Orthopedics, and he said he can see her tomorrow in the hospital. 2023: Discussed the patient's case with Dr. Fairbanks. The patient will be evaluated for further management. Medical Decision Differentials include, but are not limited to; lumbar compression fracture, hematoma, intraabdominal injuries, cauda equina, infection, and cardiac disease This patient comes in as described above. she's had lumbar back pain slightly to the right since she fell a couple days ago. it hurts with movement. She's had no numbness or weakness. There is no other injuries. There is no syncope. She is not on any blood thinners. IV access was established EKG and multiple blood testing was obtained. She was reassessed frequently. She has no fever or white count to suggest infection. Her chest x-ray shows questionable haziness in the base which may be more atelectasis she has nothing to suggest pneumonia at this point. She fell 6 days ago and has back pain. Her sodium is mildly low at 129 but she has no other significant electrolyte or metabolic abnormalities. She's had nothing to suggest a urinary tract infection. I did a CAT scan of her lumbar spine as well as abdomen and pelvis. She has no neurologic deficits and nothing to suggest cauda equina syndrome. The CAT scan shows no acute intra-abdominal process however she does have an L4 compression fracture with about 40% loss and 3 mm retropulsion. She has had a lot of pain and is unable to take care of herself and her daughter does not feel she can go back home. She has received IV morphine here. I did talk to Dr. Lowery and he will see her when she is in the hospital and I have also consulted Dr. Luu for admission/observation. Medication Reconcilliation Current Medication List: was personally reviewed by me Blood Pressure Screening Patient's blood pressure: Normal blood pressure Consults Time Called: 2001 Consulting Physician: Dr. Lowery - Orthopedics Returned Call: 2007 I discussed the patient's case with Dr. Beverley [facility], and he said he can see her tomorrow in the hospital. Additional Consults: Time Called: 2001 Consulted Physician: Dr. Fairbanks Returned Call: 2023 Additional Comments: Discussed the patient's case with Dr. Fairbanks. The patient will be evaluated for further management. Impression Primary Impression: Lumbar compression fracture Additional Impression: Low back pain Scribe Attestation The scribe's documentation has been prepared under my direction and personally reviewed by me in its entirety. I confirm that the note above accurately reflects all work, treatment, procedures, and medical decision making performed by me. Departure Information Dispostion Being Evaluated By Hospitalist Referrals Sarah Robert PA-C (PCP) Problem Qualifiers
[2017-09-13 18:08] LABS: BASO % 0.4 %; BASO ABS # 0.04 K/uL (0-0.2); EOS % 6.4 %; EOS ABS # 0.62 K/uL (0-0.5); HEMATOCRIT 39.2 % (37-47); HEMOGLOBIN 13.4 g/dL (12.0-16.0); IG# 0.05 K/uL (0.00-0.02); LYMPH % 14.4 %; MEAN CORPUSCULAR HEMOGLOBIN 31.1 pg (25-34); MEAN CORPUSCULAR HGB CONC 34.2 g/dl (32-36); MEAN PLATELET VOLUME 10.5 fL (7.4-10.4); MONO % 7.5 %; MONO ABS # 0.73 K/uL (0.11-0.59); NEUT % 70.8 %; NEUT ABS # 6.87 K/uL (1.4-6.5); PLATELET COUNT 208 K/uL (130-400); RED CELL DISTRIBUTION WIDTH CV 15.8 % (11.5-14.5); RED CELL DISTRIBUTION WIDTH SD 52.2 fL (36.4-46.3); WHITE BLOOD COUNT 9.71 K/uL (4.8-10.8)
[2017-09-13 18:18] LABS: PTT PATIENT 25.7 SECONDS (21.0-31.0)
[2017-09-13 18:30] LABS: CALCIUM 9.5 mg/dl (8.5-10.1); CREATININE 1.17 mg/dl (0.60-1.20)
[2017-09-13] MEDS ORDERED: ASPI81TA28 PO (18:33)
[2017-09-13] MEDS ORDERED: ARTISOL12 OP (18:33)
[2017-09-13] MEDS ORDERED: OXYC-609 PO (18:33)
[2017-09-13] MEDS ORDERED: ONDA4TAB46 PO (18:33)
[2017-09-13] MEDS ORDERED: ACET-1311 PO (18:33)
[2017-09-13] MEDS ORDERED: MOUT1LIQ45 PO (18:33)
[2017-09-13] MEDS ORDERED: CALCTAB7 PO (18:33)
[2017-09-13] MEDS ORDERED: MoRPHine SULFATE 2 MG/ML CARP IV STA (18:49)
[2017-09-13] MEDS ORDERED: ONDANSETRON INJ 2 MG/ML 2 ML VIAL IV STA (18:49)
[2017-09-13] MEDS ORDERED: OPTIRAY 320 IV PRN (19:00)
--- NOTE | 2017-09-13 19:40 | DIAGNOSTIC IMAGING REPORT ---
CHEST ONE VIEW PORTABLE HISTORY: 86 years-old Female CHEST PAIN acute atypical chest pain COMPARISON: Chest radiograph 03/23/2017 TECHNIQUE: Portable AP view of the chest FINDINGS: Cardiac silhouette is again mildly enlarged. Atherosclerosis of the aorta. Patient is mildly rotated to the left. There is no pneumothorax or pleural effusion. Hazy ill-defined subsegmental opacity of the lateral left lung base with patchy right basilar opacities. Bones appear moderately demineralized. Chronic fracture deformity of the proximal left humerus. IMPRESSION: 1. Subtle bibasilar opacities suggest atelectasis or pneumonitis. 3. Chronic fracture deformity of the proximal left humerus. The above report was generated using voice recognition software. It may contain grammatical, syntax or spelling errors. Electronically signed by: Kev Narayan M.D. 09/13/2017 7:38 PM Dictated Date/Time: 09/13/2017 7:36 PM
--- NOTE | 2017-09-13 19:55 | DIAGNOSTIC IMAGING REPORT ---
ABDOMEN AND PELVIS CT WITH IV CONTRAST HISTORY: Acute low back pain with recent fall eval for trauma TECHNIQUE: Multiaxial CT images of the abdomen and pelvis were performed following the use of intravenous contrast. A dose lowering technique was utilized adhering to the principles of ALARA. COMPARISON STUDY: CT lumbar spine of same day, CT abdomen and pelvis 03/09/2016. FINDINGS: Study is limited secondary to patient motion and positioning of the patient's arms. Mild subsegmental bibasilar atelectasis. There is no pneumatosis or pneumoperitoneum identified. Coronary arterial disease. Imaged inferior cardiac chambers are mildly enlarged. Scattered low attenuating lesions throughout the liver are again noted measuring up to 1.3 cm within the right hepatic lobe appear unchanged suggesting hepatic cysts. No intrahepatic biliary ductal dilation identified. The gallbladder, spleen and right adrenal gland are unremarkable. Mild nodular thickening of the left adrenal gland. There is marked generalized atrophy of the pancreas. Previously described cystic foci of the pancreas are not as well seen on today's study secondary to patient motion. Kidneys, ureters and urinary bladder are within normal limits. No ascites. Ossifications of the uterus suggests calcified fibroid measuring up to 8 mm. Indeterminate calcifications are also seen within the left adnexal region. Moderate to extensive atherosclerosis of the aorta without aneurysm. No bulky adenopathy. There is no bowel obstruction or focal bowel wall thickening identified. Duodenal diverticulum. Moderate colonic diverticulosis without diverticulitis. Moderate volume of formed stool throughout the colon suggest constipation. Normal appendix. Mild diastases recti. Soft tissues appear to be unremarkable. The bones appear moderately demineralized. There is mild cortical irregularity and sclerosis involving the anterolateral left sixth rib seen on image 48 series 3 which appears new from prior study suspicious for acute subacute nondisplaced fracture. Compression fracture of the L4 vertebral body with 3 mm retropulsion is noted in addition to a chronic appearing compression forming of the T12 vertebral body. Finding and T12 is remote and the fracture at L4 is new from comparison study 03/09/2016. IMPRESSION: 1. Acute to subacute appearing compression deformity of L4 involves the anterior and middle columns with 3 mm retropulsion, further discussed on CT lumbar spine of same day. This is new from comparison study 03/09/2016. 2. Remote compression deformity at T12. 3. Suggested constipation. 5. Moderately motion degraded study with additional findings as above. Electronically signed by: Kev Narayan M.D. 09/13/2017 7:53 PM Dictated Date/Time: 09/13/2017 7:41 PM
--- NOTE | 2017-09-13 20:04 | DIAGNOSTIC IMAGING REPORT ---
LUMBAR SPINE WITHOUT HISTORY: 86 years-old Female eval for trauma acute back pain status post recent fall COMPARISON: Lumbar spine CT 02/22/2017, CT abdomen and pelvis of same day TECHNIQUE: Multiple axial CT images of the lumbar spine were obtained without contrast. A dose lowering technique was used consistent with the principals of IGOR. FINDINGS: There is an acute to subacute appearing compression deformity at L4 involving the anterior and middle columns with 40% loss of vertebral body height. There is 3 mm retropulsion which results in mild central canal stenosis. No fracture extension into the pedicles or posterior elements. Chronic compression deformity at T12 with marked loss of the anterior vertebral body height appears unchanged with focal mild kyphosis at this level. 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 Multilevel facet arthrosis and endplate spurring with moderately demineralized appearance of the bones. No additional acute fracture or subluxation identified. Sacrum appears intact. No significant intervertebral disc space narrowing. Linear subsegmental bibasilar opacities suggest atelectasis. No acute intra-abdominal abnormality identified. IMPRESSION: 1. Acute to subacute appearing compression deformity at L4 involves the anterior and middle columns with 40% loss of vertebral body height. 3 mm retropulsion results in mild central canal stenosis. 2. Chronic compression deformity at T12 with marked loss of the anterior vertebral body height appears unchanged. Mild focal kyphotic curvature centered at this level. 3. Moderately demineralized appearance of the bones. The above report was generated using voice recognition software. It may contain grammatical, syntax or spelling errors. Electronically signed by: Kev Narayan M.D. 09/13/2017 8:03 PM Dictated Date/Time: 09/13/2017 7:58 PM
[2017-09-13] MEDS ORDERED: CYCLOBENZAPRINE HCL 5 MG TAB PO PRN (20:45)
[2017-09-13] MEDS ORDERED: MoRPHine SULFATE 4 MG/ML 1 ML CARP\\VIAL IV PRN (20:45)
[2017-09-13] MEDS ORDERED: MAGNESIUM HYDROXIDE SUSP 30 ML UDC PO PRN (21:00)
[2017-09-13] MEDS ORDERED: ACETAMINOPHEN 325 MG TAB PO PRN (21:00)
[2017-09-13] MEDS ORDERED: ALUMINUM/MAGNESIUM/SIMETH (MAALOX MAX) 30 ML UDC PO PRN (21:00)
--- NOTE | 2017-09-13 21:23 | History and Physical ---
History & Physical Date & Time of Service: Sep 13, 2017 at 20:30 Chief Complaint: Back Pain Primary Care Physician: Sarah Robert PA-C History of Present Illness Source: patient 86 y/o F Hx RA, HTN, DM, hypothyroidism, ambulatory dysfunction, L4 fracture , tibial fracture 03/09. The pt is recovering from a tibial fracture suffered in January and has difficulty ambulating and transferring in general. she is receiving therapy at an assisted living facility and uses a walker presently. She suffered a fall one day prior and has had progressive lower back pain since. A lumbar CT was obtained showing an acute compression fracture of L4 - a fracture was previously noted, however, she now has a compression deformity with retropulsion and a degree of canal stenosis. As the pt cannot manage with the degree of care provided at her current facility she will likely require transfer to a rehab facility. Past Medical/Surgical History 1) HTN 2) DM II 3) Tibial fracture 03/09 - ORIF 4) RA 5) L4 fracture reported 03/09 6) Hypothyroidism Family History Cancer Diabetes mellitus Heart disease Hypertension Social History Smoking Status: Never Smoker Drug Use: none Marital Status: Housing status: assisted living Occupational Status: retired Immunizations History of Influenza Vaccine: Yes Influenza Vaccine Date: May 01, 2012 History of Tetanus Vaccine?: No History of Pneumococcal: Yes Pneumococcal Date: May 01, 2012 History of Hepatitis B Vaccine: No Multi-Drug Resistant Organisms History of MDRO: No Allergies Coded Allergies: Amoxicillin (Verified Allergy, Mild, RASH, 09/13/17) Naproxen (Verified Allergy, Mild, RASH, 09/13/17) Home Medications Scheduled Aspirin (Aspirin Ec), 81 MG PO QAM Calcium Carbonate-Vitamin D W/ (Caltrate 600 Plus), 1 TAB PO QAM Folic Acid (Folvite), 1 MG PO TID Gabapentin (Neurontin), 100 MG PO TID Hctz/Losartan (Hyzaar 12.5MG/50MG), 1 TAB PO DAILY Hydroxychloroquine Sulfate (Plaquenil), 200 MG PO BID Levothyroxine Sodium (Levothyroxine Sodium), 75 MCG PO QAM Methotrexate (Methotrexate), 10 MG PO WK Metoprolol Succinate (Metoprolol Succinate ER), 100 MG PO QAM Nifedipine Ext Rel (Procardia Xl Ext Rel), 30 MG PO QAM Probiotic Product (Align), 4 MG PO QAM Sitagliptin Phosphate (Januvia), 100 MG PO QAM Temazepam (Temazepam), 7.5 MG PO HS Scheduled PRN Acetaminophen (Tylenol), 650 MG PO Q4H PRN for Pain or Fever Artificial Tear Solution (Artificial Tears), 1 DROPS OP DIRECTED PRN for DRYNESS Cyclobenzaprine Hcl (Flexeril), 5 MG PO TID PRN for Muscle Spasm Lidocaine (Lidocaine), 1 PATCH TOP DAILY PRN for Posthepetic Neuralgia Mouthwashes (Biotene Dry Mouth Gentle), 1 SPRAY PO DIRECTED PRN for DRYNESS Ondansetron Hcl (Zofran), 4 MG PO Q4H PRN for Nausea Oxycodone HCl (Oxycodone HCl), 5 MG PO BID PRN for Pain Polyethylene (Polyethylene Glycol 3350), 1 DOSE PO DAILY PRN for Constipation Sennosides-Docusate Sodium (Sennalax-S), 2 TBS PO HS PRN for Constipation Review of Systems Constitutional: + weakness, No fever, No chills, No sweats Eyes: No worsening of vision ENT: No hearing loss, No unusual epistaxis, No nasal symptoms Respiratory: No cough, No sputum, No wheezing Cardiovascular: No chest pain, No orthopnea, No PND Abdomen: No pain, No nausea, No vomiting Musculoskeletal: + joint pain (worsening of chronic low back pain) Genitourinary - Female: No dysuria, No urinary frequency, No urinary urgency Neurologic: + weakness, + balance problems, + problem reported (cannot ambulate independently), No memory loss Psychiatric: No depression symptoms Endocrine: No fatigue Hematologic / Lymphatic: No abnormal bleeding/bruising Integumentary: No rash Allergic / Immunologic: No environmental allergies Physical Exam Vital Signs Date Time Temp Pulse Resp B/P (MAP) Pulse Ox O2 Delivery O2 Flow Rate FiO2 09/13/17 19:30 72 20 116/44 96 Room Air 09/13/17 18:55 70 17 124/59 96 Room Air 09/13/17 17:47 36.5 72 18 127/55 95 Room Air General Appearance: WD/WN, no apparent distress Head: normocephalic Eyes: normal inspection ENT: normal ENT inspection, pharynx normal, + pertinent finding (poor dentition ) Neck: supple, no JVD Respiratory/Chest: chest non-tender, lungs clear, normal breath sounds Cardiovascular: regular rate, rhythm, no edema, no gallop Abdomen/GI: normal bowel sounds, non tender, soft Back: no CVA tenderness, + pertinent finding (There is some tenderness over the lower back) Extremities/Musculoskelatal: normal inspection, no calf tenderness, normal capillary refill Neurologic/Psych: sweet potato disintegrator II-XII nml as tested, no motor/sensory deficits, oriented x 3 Skin: normal color Diagnostics Laboratory Results Results Past 24 Hours Test 09/13/17 17:55 09/13/17 18:03 Range/Units White Blood Count 9.71 4.8-10.8 K/uL Red Blood Count 4.31 4.2-5.4 M/uL Hemoglobin 13.4 12.0-16.0 g/dL Hematocrit 39.2 37-47 % Mean Corpuscular Volume 91.0 80-100 fL Mean Corpuscular Hemoglobin 31.1 25-34 pg Mean Corpuscular Hemoglobin Concent 34.2 32-36 g/dl Platelet Count 208 130-400 K/uL Mean Platelet Volume 10.5 7.4-10.4 fL Neutrophils (%) (Auto) 70.8 % Lymphocytes (%) (Auto) 14.4 % Monocytes (%) (Auto) 7.5 % Eosinophils (%) (Auto) 6.4 % Basophils (%) (Auto) 0.4 % Neutrophils # (Auto) 6.87 1.4-6.5 K/uL Lymphocytes # (Auto) 1.40 1.2-3.4 K/uL Monocytes # (Auto) 0.73 0.11-0.59 K/uL Eosinophils # (Auto) 0.62 0-0.5 K/uL Basophils # (Auto) 0.04 0-0.2 K/uL RDW Standard Deviation 52.2 36.4-46.3 fL RDW Coefficient of Variation 15.8 11.5-14.5 % Immature Granulocyte % (Auto) 0.5 % Immature Granulocyte # (Auto) 0.05 0.00-0.02 K/uL Prothrombin Time 10.0 9.0-12.0 SECONDS Prothromb Time International Ratio 1.0 0.9-1.1 Activated Partial Thromboplast Time 25.7 21.0-31.0 SECONDS Partial Thromboplastin Ratio 1.0 Sodium Level 129 136-145 mmol/L Potassium Level 4.0 3.5-5.1 mmol/L Chloride Level 93 98-107 mmol/L Carbon Dioxide Level 32 21-32 mmol/L Anion Gap 4.0 3-11 mmol/L Blood Urea Nitrogen 27 7-18 mg/dl Creatinine 1.17 0.60-1.20 mg/dl Est Creatinine Clear Calc Drug Dose 24.0 ml/min Estimated GFR () 49.6 Estimated GFR (Non- 42.8 BUN/Creatinine Ratio 23.3 10-20 Random Glucose 164 70-99 mg/dl Calcium Level 9.5 8.5-10.1 mg/dl Bedside Troponin I < 0.030 0-0.045 ng/ml Diagnostic Radiology CT lumbar 09/13/17 1. Acute to subacute appearing compression deformity at L4 involves the anterior and middle columns with 40% loss of vertebral body height. 3 mm retropulsion results in mild central canal stenosis. 2. Chronic compression deformity at T12 with marked loss of the anterior vertebral body height appears unchanged. Mild focal kyphotic curvature centered at this level. 3. Moderately demineralized appearance of the bones. CT lumbar 03/09 There is a mild acute inferior endplate compression fracture of L4. There is only minimal loss of height. No retropulsed fragments are identified. Impression Assessment and Plan 86 y/o F Hx RA, HTN, DM, hypothyroidism, ambulatory dysfunction, L4 fracture , tibial fracture 03/09. The pt is recovering from a tibial fracture suffered in January and has difficulty ambulating and transferring in general. she is receiving therapy at an assisted living facility and uses a walker presently. She suffered a fall one day prior and has had progressive lower back pain since. A lumbar CT was obtained showing an acute compression fracture of L4 - a fracture was previously noted, however, she now has a compression deformity with retropulsion and a degree of canal stenosis. As the pt cannot manage with the degree of care provided at her current facility she will likely require transfer to a rehab facility. 1) Compression fracture with ambulatory dysfunction. We will consult ortho in addition to PT/OT. Analgesics are provided. Th pt has requested transfer to [facility]. 2) Labs and exam are consistent with dehydration - likely the result of reduced activity and intake. IVF provided - will trend BMP. 3) DM - placed on SS 4) HTN - Her AM HCTZ/Losartan is held due to dehydration - cont Metoprolol, Nifedipine 5) RA - cont Chloroquine - can cont MTX as outpt 6) Hypothyroidism - cont Synthroid Full code - Heparin prophylaxis Total time for this admit including review of labs, meds, imaging - discussion with pt and ER attending Level of Care Med/Surg Resuscitation Status FULL RESUSCITATION VTE Prophylaxis Given or contraindicated: Unfractionated heparin SQ
[2017-09-13] MEDS ORDERED: POLYETHYLENE (MIRALAX) 17 GM PACK PO PRN (21:45)
[2017-09-13] MEDS ORDERED: IV FLUIDS COMPLETED PRN (22:00)
[2017-09-13] MEDS ORDERED: DEXTROSE 50% 50 ML SYR IV PRN (23:15)
[2017-09-13] MEDS ORDERED: GLUCOSE 40% GEL 15 GM TUBE PO PRN (23:15)
[2017-09-13] MEDS ORDERED: GLUCAGON FOR INJ 1 MG VIAL SQ PRN (23:15)
[2017-09-13] MEDS ORDERED: GLUCOSE 10 TABS/TUBE PO PRN (23:15)
[2017-09-13 23:16] VITALS: BP 145/61; PULSE 70; TEMP 36.9
[2017-09-13 23:25] VITALS: PULSE 71; O2SAT 96
[2017-09-13 23:30] VITALS: Ht 142.2 cm; Wt 51.7 kg
[2017-09-13] MEDS: INSULIN ASPART 100 UNITS/ML 3 ML PEN SC SCH (23:30)
[2017-09-14] MEDS: GABAPENTIN 100 MG CAP PO SCH ×4 (00:06→20:29)
[2017-09-14] MEDS: HYDROXYCHLOROQUINE SULFATE 200 MG TAB PO SCH ×3 (00:07→20:29)
[2017-09-14] MEDS: TEMAZEPAM 7.5 MG CAP PO SCH ×2 (00:17→20:29)
[2017-09-14] MEDS: SODIUM CHLORIDE 0.9% 1000ML 1,000 ML IV SCH ×2 (00:18→09:13)
[2017-09-14] MEDS ORDERED: ARTIFICIAL TEARS OP SOLN OPB PRN (00:45)
[2017-09-14] MEDS: LEVOTHYROXINE 75 MCG TAB PO SCH (05:12)
[2017-09-14 07:29] VITALS: BP 136/65; PULSE 75; TEMP 36.9
[2017-09-14] MEDS: INSULIN ASPART 100 UNITS/ML 3 ML PEN SC SCH ×4 (08:00→20:38)
[2017-09-14] MEDS ORDERED: NON-FORMULARY MEDICATION (Probiotic Product (Align) 4 MG) PO SCH (09:00)
[2017-09-14 09:01] LABS: HEMATOCRIT 36.1 % (37-47); HEMOGLOBIN 12.2 g/dL (12.0-16.0); MEAN CELL VOLUME 90.9 fL (80-100); MEAN CORPUSCULAR HEMOGLOBIN 30.7 pg (25-34); MEAN CORPUSCULAR HGB CONC 33.8 g/dl (32-36); MEAN PLATELET VOLUME 10.1 fL (7.4-10.4); PLATELET COUNT 174 K/uL (130-400); RED CELL DISTRIBUTION WIDTH SD 51.8 fL (36.4-46.3); WHITE BLOOD COUNT 8.15 K/uL (4.8-10.8)
[2017-09-14] MEDS: CALCIUM 600MG + VIT D 400 IU TAB PO SCH (09:03)
[2017-09-14] MEDS: HEPARIN SOD 5000 UNIT/0.5 ML CARP SQ SCH ×2 (09:04→20:29)
[2017-09-14] MEDS: METOPROLOL SUCC 50MG EXT REL TAB PO SCH (09:04)
[2017-09-14] MEDS: NIFEdipine 30 MG CR TAB PO SCH (09:06)
[2017-09-14] MEDS: ASPIRIN 81 MG ECTAB PO SCH (09:06)
[2017-09-14 09:26] LABS: CALCIUM 8.7 mg/dl (8.5-10.1); CREATININE 0.83 mg/dl (0.60-1.20)
--- NOTE | 2017-09-14 12:08 | Hospitalist Progress Note ---
Hospitalist Progress Note Date of Service Sep 14, 2017. (Bethany Ortiz ., BISMARKC) Subjective Pt evaluation today including: conversation w/ patient, physical exam, chart review, lab review, review of inpatient medication list Pain: 7/10 throbbing low back pain PO Intake: Tolerating PO diet Voiding: babb catheter in place (dark urine) The patient reports feeling the same. She complains of feeling fatigued. She states her low back pain is a 7/10 throbbing pain that remains unchanged from admission. The pain does not radiate. She also complains of a cough that is wet but non-productive. She complains of nausea but denies any vomiting or abdominal pain, and she was able to eat her breakfast without issue. Babb catheter in place. The patient denies fevers, chills, sweats, chest pain, palpitations, claudication, wheezing, shortness of breath, vomiting, abdominal pain, dysuria, hematuria, urinary retention, paralysis, weakness, numbness and tingling. Additional Comments: See HPI for pertinent positives and negatives. All other systems reviewed and negative. (Bethany Ortiz ., DIMAS-C) Objective Vital Signs Date Time Temp Pulse Resp B/P (MAP) Pulse Ox O2 Delivery O2 Flow Rate FiO2 09/14/17 07:45 Room Air 09/14/17 07:29 36.9 75 16 136/65 (88) 09/13/17 23:30 Room Air 09/13/17 23:25 71 96 Room Air 09/13/17 23:20 Room Air 09/13/17 23:16 36.9 70 16 145/61 (89) 09/13/17 22:42 75 20 122/71 97 09/13/17 21:28 69 20 99/61 94 Room Air 09/13/17 19:30 72 20 116/44 96 Room Air 09/13/17 18:55 70 17 124/59 96 Room Air 09/13/17 17:47 36.5 72 18 127/55 95 Room Air (Bethany Ortiz ., DIMAS-C) Physical Exam Notes: General appearance: +Appears fatigued. Well-developed, well-nourished, no apparent distress Head: Normocephalic, atraumatic Eyes: Normal inspection, PERRL, EOMI ENT: Normal ENT inspection, hearing grossly normal, pharynx normal Neck: Supple, no JVD, trachea midline Respiratory/Chest: +Decreased breath sounds. Lungs clear to auscultation, no respiratory distress Cardiovascular: Regular rate & rhythm, no gallop, no murmur Abdomen/GI: Normal bowel sounds, non-tender, soft Extremities/Musculoskeletal: Normal inspection, no calf tenderness, no pedal edema Neurological/Psych: +Disoriented to time. Knew year but not the month. Alert , normal mood/affect, oriented x 2 Skin: Normal color, warm/dry, no rash (Bethany Ortiz ., MARK ANTHONY) Laboratory Results Last 24 Hours Test 09/13/17 17:55 09/13/17 18:03 09/13/17 20:40 09/14/17 00:01 White Blood Count 9.71 K/uL Red Blood Count 4.31 M/uL Hemoglobin 13.4 g/dL Hematocrit 39.2 % Mean Corpuscular Volume 91.0 fL Mean Corpuscular Hemoglobin 31.1 pg Mean Corpuscular Hemoglobin Concent 34.2 g/dl Platelet Count 208 K/uL Mean Platelet Volume 10.5 fL Neutrophils (%) (Auto) 70.8 % Lymphocytes (%) (Auto) 14.4 % Monocytes (%) (Auto) 7.5 % Eosinophils (%) (Auto) 6.4 % Basophils (%) (Auto) 0.4 % Neutrophils # (Auto) 6.87 K/uL Lymphocytes # (Auto) 1.40 K/uL Monocytes # (Auto) 0.73 K/uL Eosinophils # (Auto) 0.62 K/uL Basophils # (Auto) 0.04 K/uL RDW Standard Deviation 52.2 fL RDW Coefficient of Variation 15.8 % Immature Granulocyte % (Auto) 0.5 % Immature Granulocyte # (Auto) 0.05 K/uL Prothrombin Time 10.0 SECONDS Prothromb Time International Ratio 1.0 Activated Partial Thromboplast Time 25.7 SECONDS Partial Thromboplastin Ratio 1.0 Sodium Level 129 mmol/L Potassium Level 4.0 mmol/L Chloride Level 93 mmol/L Carbon Dioxide Level 32 mmol/L Anion Gap 4.0 mmol/L Blood Urea Nitrogen 27 mg/dl Creatinine 1.17 mg/dl Est Creatinine Clear Calc Drug Dose 24.0 ml/min Estimated GFR () 49.6 Estimated GFR (Non- 42.8 BUN/Creatinine Ratio 23.3 Random Glucose 164 mg/dl Calcium Level 9.5 mg/dl Bedside Troponin I < 0.030 ng/ml Urine Color DK YELLOW Urine Appearance TURBID Urine pH 5.5 Urine Specific [place] 1.028 Urine Protein 1+ Urine Glucose (UA) NEG Urine Ketones NEG Urine Occult Blood 3+ Urine Nitrite NEG Urine Bilirubin NEG Urine Urobilinogen NEG Urine Leukocyte Esterase LARGE Urine WBC (Auto) >30 /hpf Urine RBC (Auto) >30 /hpf Urine Hyaline Casts (Auto) 0 /lpf Urine Epithelial Cells (Auto) >30 /lpf Urine Bacteria (Auto) 1+ Urine Pathogenic Casts /lpf Urine Yeast (Auto) BUD W/ HYPHAE Bedside Glucose 101 mg/dl Test 09/14/17 08:13 09/14/17 08:24 Bedside Glucose 107 mg/dl White Blood Count 8.15 K/uL Red Blood Count 3.97 M/uL Hemoglobin 12.2 g/dL Hematocrit 36.1 % Mean Corpuscular Volume 90.9 fL Mean Corpuscular Hemoglobin 30.7 pg Mean Corpuscular Hemoglobin Concent 33.8 g/dl RDW Standard Deviation 51.8 fL RDW Coefficient of Variation 16.0 % Platelet Count 174 K/uL Mean Platelet Volume 10.1 fL Sodium Level 133 mmol/L Potassium Level 4.0 mmol/L Chloride Level 97 mmol/L Carbon Dioxide Level 28 mmol/L Anion Gap 8.0 mmol/L Blood Urea Nitrogen 18 mg/dl Creatinine 0.83 mg/dl Est Creatinine Clear Calc Drug Dose 33.8 ml/min Estimated GFR () 75.1 Estimated GFR (Non- 64.8 BUN/Creatinine Ratio 21.7 Random Glucose 116 mg/dl Calcium Level 8.7 mg/dl Magnesium Level 1.8 mg/dl (Bethany Ortiz ., BISMARKC) Assessment and Plan 86 y/o female with a history of HTN, DM II, hypothyroidism, RA, neuropathy, insomnia, and previous L4 fracture February 2017 who presents with ambulatory dysfunction, fall and low back pain. Pt lives in assisted living and uses walker. She had a fall 1 day DBAS and has had lower back pain since. Acute L4 compression fracture--ongoing -Admit to med/surg. Change to full admit for placement to SNF -Lumbar CT shows acute compression fracture at L4. Fracture previously noted there but now with compression deformity with retropulsion and canal stenosis. -Consult orthopedics, appreciate recs: No surgical intervention at this time, but can consider kyphoplasty if continues to decline/fails to improve. Can use LSO brace when out of bed. -Continue morphine 4 mg IV q4h prn pain, oxycodone 5 mg PO q4h prn pain, and Flexeril 5 mg PO TID prn -LSO brace Cough, possible URI -Check portable CXR Dehydration--improving -Renal function stable, BUN improved -NSS 80 cc/hr x 500 mL, continue to monitor HTN--stable -Continue Toprol XL 100 mg PO qd, nifedipine 30 mg PO q -Hyzaar on hold due to dehydration DM II--last HgbA1c 7.2 on 03/25/17 -Insulin sliding scale -Check BSGs q ac and qhs -Recheck HgbA1c Hypothyroidism -Continue Synthroid 75 mcg PO qd RA -Continue Plaquenil 200 mg PO BID Neuropathy -Continue gabapentin 100 mg PO TID DVT prophylaxis -Heparin 5000 units SC q12h Code Status -Level I, FULL RESUSCITATION STATUS Dispo -Spoke to physical therapy, recommend rehab or SNF -Changed to full admit status, will need 3 midnight stay (Behtany Ortiz ., PA-C) Attending Attestation: Pt seen/examined, chart reviewed, care plan d/w DIMAS Ortiz. I agree w/ the nguyen components of her documentation. Pt tired, has ongoing back pain, and cont with cough. has had cough for 3-4 days. lack of appetite as well but no fevers/chills/dysuria/foul-smelling urine. VSS no fever gen - frail, has back pain with any movement mouth - MM dry neck - no JVD heart - RRR lungs - mild bibasilar rales, no wheeze abd - soft ext - no edema Na 133 Cr now 0.8 urine cx neg but pending A/P: 1. acute L4 compression fracture due to fall; this is an osteoporotic compression fx. Appreciate ortho consult. Conservative Rx at this time. LSO brace. Pain control. PT, OT. 2. hyponatremia - due to dehydration - improving but not resolved. Resume fluids x 1 additional liter. 3. acute kidney injury - 2nd to #2 - resolved. 4. CKD stage 3 5. vitamin D insufficiency - replace 2000 IU vit D daily. 6. hypothyroidism - check TSH in am. 7. anorexia, cough - check cxr, r/o pneumonia. 8. dirty u/a - await urine cx; hold on abx for now. daughter updated In my clinical judgment this beneficiary meets acute admission criteria, established by [facility], that includes being hospitalized through two midnights. Shirley HORNE MD (Nestor Horne MD)
[2017-09-14] MEDS: OXYCODONE HCL IR 5 MG TAB (IMMEDIATE RELEASE) PO PRN (13:13)
--- NOTE | 2017-09-14 14:05 | Orthopedic Consultation ---
Orthopedic Consultation Date of Consultation: Sep 14, 2017. Attending Physician: Nestor Horne MD Reason for Consultation: Back pain known L4 compression fracture History of Present Illness Very pleasant 86-year-old female known to me from injuries in the past. She presents to the ER yesterday with worsening back pain status post fall. She had been undergoing physical therapy at her long-term. She been wearing her LSO brace when outside of the bed. Today she denies any leg pain numbness or tingling. She is comfortable sitting up in bed. She has not yet been out of bed. Past Medical/Surgical History Medical Problems: (1) Acute back pain Status: Acute (2) Compression fracture Status: Acute (3) Compression fracture of L4 lumbar vertebra Status: Acute (4) Fall Status: Acute (5) Left fibular fracture Status: Acute (6) Left tibial fracture Status: Acute (7) Low back pain Status: Acute (8) Lumbar compression fracture Status: Acute (9) Pulmonary nodule Status: Acute Family History Cancer Diabetes mellitus Heart disease Hypertension Social History Smoking Status: Never Smoker Drug Use: none Marital Status: Housing Status: assisted living Occupation Status: retired Allergies Coded Allergies: Amoxicillin (Verified Allergy, Mild, RASH, 09/13/17) Naproxen (Verified Allergy, Mild, RASH, 09/13/17) Home Medications Scheduled Aspirin (Aspirin Ec), 81 MG PO QAM Calcium Carbonate-Vitamin D W/ (Caltrate 600 Plus), 1 TAB PO QAM Folic Acid (Folvite), 1 MG PO TID Gabapentin (Neurontin), 100 MG PO TID Hctz/Losartan (Hyzaar 12.5MG/50MG), 1 TAB PO DAILY Hydroxychloroquine Sulfate (Plaquenil), 200 MG PO BID Levothyroxine Sodium (Levothyroxine Sodium), 75 MCG PO QAM Methotrexate (Methotrexate), 10 MG PO WK Metoprolol Succinate (Metoprolol Succinate ER), 100 MG PO QAM Nifedipine Ext Rel (Procardia Xl Ext Rel), 30 MG PO QAM Probiotic Product (Align), 4 MG PO QAM Sitagliptin Phosphate (Januvia), 100 MG PO QAM Temazepam (Temazepam), 7.5 MG PO HS Scheduled PRN Acetaminophen (Tylenol), 650 MG PO Q4H PRN for Pain or Fever Artificial Tear Solution (Artificial Tears), 1 DROPS OP DIRECTED PRN for DRYNESS Cyclobenzaprine Hcl (Flexeril), 5 MG PO TID PRN for Muscle Spasm Lidocaine (Lidocaine), 1 PATCH TOP DAILY PRN for Posthepetic Neuralgia Mouthwashes (Biotene Dry Mouth Gentle), 1 SPRAY PO DIRECTED PRN for DRYNESS Ondansetron Hcl (Zofran), 4 MG PO Q4H PRN for Nausea Oxycodone HCl (Oxycodone HCl), 5 MG PO BID PRN for Pain Polyethylene (Polyethylene Glycol 3350), 1 DOSE PO DAILY PRN for Constipation Sennosides-Docusate Sodium (Sennalax-S), 2 TBS PO HS PRN for Constipation Current Inpatient Medications Current Inpatient Medications Medications (Trade) Dose Ordered Sig/Alejandra Route Start Time Stop Time Status Last Admin Dose Admin Ioversol (Optiray 320) 100 ml UD PRN IV 09/13/17 19:00 09/17/17 18:59 Aspirin (Ecotrin Tab) 81 mg QAM PO 09/14/17 09:00 10/14/17 08:59 09/14/17 09:06 81 MG Calcium/Vitamin D (Caltrate Plus Tab) 1 tab QAM PO 09/14/17 09:00 10/14/17 08:59 09/14/17 09:03 1 TAB Cyclobenzaprine HCl (Flexeril Tab) 5 mg TID PRN PO 09/13/17 20:45 10/13/17 20:44 Folic Acid (Folvite Tab) 1 mg TID PO 09/13/17 21:00 10/13/17 20:59 09/14/17 13:14 1 MG Gabapentin (Neurontin Cap) 100 mg TID PO 09/13/17 21:00 10/13/17 20:59 09/14/17 13:14 100 MG Hydroxychloroquine Sulfate (Plaquenil Tab) 200 mg BID PO 09/13/17 21:00 10/13/17 20:59 09/14/17 09:04 200 MG Levothyroxine Sodium (Synthroid Tab) 75 mcg DAILYBB PO 09/14/17 06:00 10/14/17 06:59 09/14/17 05:12 75 MCG Nifedipine (Procardia Xl Tab) 30 mg QAM PO 1/22/18 09:00 10/14/17 08:59 09/14/17 09:06 30 MG Temazepam (Restoril Cap) 7.5 mg HS PO 09/13/17 23:15 10/13/17 23:14 09/14/17 00:17 7.5 MG Artificial Tears (Artificial Tears) 1 drops QID PRN OPB 09/14/17 00:45 10/14/17 00:44 Metoprolol Succinate (Toprol Xl Tab) 100 mg DAILY PO 09/14/17 09:00 10/14/17 08:59 09/14/17 09:04 100 MG Miscellaneous Information (Order Awaiting Action) 1 ea QS N/A 09/14/17 08:00 10/14/17 07:59 Oxycodone HCl (Roxicodone Immediate Rel Tab) 5 mg Q4H PRN PO 09/13/17 20:45 09/27/17 20:44 09/14/17 13:13 5 MG Morphine Sulfate (MoRPHine SULFATE INJ) 4 mg Q4H PRN IV 09/13/17 20:45 09/27/17 20:44 09/13/17 21:34 4 MG Acetaminophen (Tylenol Tab) 650 mg Q4H PRN PO 09/13/17 21:00 10/13/17 20:59 Al Hydrox/Mg Hydrox/Simethicone (Maalox Max Susp) 15 ml Q4H PRN PO 09/13/17 21:00 10/13/17 20:59 Magnesium Hydroxide (Milk Of Magnesia Susp) 30 ml Q6H PRN PO 09/13/17 21:00 10/13/17 20:59 Polyethylene (Miralax Powder Packet) 17 gm DAILY PRN PO 09/13/17 21:45 10/13/17 21:44 Heparin Sodium (Porcine) (Heparin Sq 5000 Unit/0.5ml) 5,000 unit Q12H SQ 09/14/17 09:00 10/14/17 08:59 09/14/17 09:04 5,000 UNIT Insulin Aspart (novoLOG ASPART) SLIDING SCALE G... ACHS SC 09/13/17 23:30 10/13/17 23:29 Sodium Chloride 1,000 ml @ 100 mls/hr Q10H IV 09/13/17 23:15 09/14/17 14:14 09/14/17 09:13 100 MLS/HR Miscellaneous (Iv Fluids Completed) 1 ea PRN PRN N/A 09/13/17 22:00 09/13/18 21:59 Glucose (Glucose 40% Gel) 15-30 GRAMS 15 GRAMS... UD PRN PO 09/13/17 23:15 10/13/17 23:14 Glucose (Glucose Chew Tab) 4-8 Tablets 4 Tabl... UD PRN PO 09/13/17 23:15 10/13/17 23:14 Dextrose (Dextrose 50% 50ML Syringe) 25-50ML OF 50% DW IV FOR... UD PRN IV 09/13/17 23:15 10/13/17 23:14 Glucagon (Glucagon Inj) 1 mg UD PRN SQ 09/13/17 23:15 10/13/17 23:14 Physical Exam Date Time Temp Pulse Resp B/P (MAP) Pulse Ox O2 Delivery O2 Flow Rate FiO2 09/14/17 07:45 Room Air 09/14/17 07:29 36.9 75 16 136/65 (88) 09/13/17 23:30 Room Air 09/13/17 23:25 71 96 Room Air 09/13/17 23:20 Room Air 09/13/17 23:16 36.9 70 16 145/61 (89) 09/13/17 22:42 75 20 122/71 97 09/13/17 21:28 69 20 99/61 94 Room Air 09/13/17 19:30 72 20 116/44 96 Room Air 09/13/17 18:55 70 17 124/59 96 Room Air 09/13/17 17:47 36.5 72 18 127/55 95 Room Air On exam patient is alert and oriented. She does not appear to be in acute distress. She has full sensation to detail testing bilateral extremity. She is excellent strength with testing to lower extremity. Negative log roll. Laboratory Results Last 24 Hours Test 09/13/17 17:55 09/13/17 18:03 09/13/17 20:40 09/14/17 00:01 White Blood Count 9.71 K/uL Red Blood Count 4.31 M/uL Hemoglobin 13.4 g/dL Hematocrit 39.2 % Mean Corpuscular Volume 91.0 fL Mean Corpuscular Hemoglobin 31.1 pg Mean Corpuscular Hemoglobin Concent 34.2 g/dl Platelet Count 208 K/uL Mean Platelet Volume 10.5 fL Neutrophils (%) (Auto) 70.8 % Lymphocytes (%) (Auto) 14.4 % Monocytes (%) (Auto) 7.5 % Eosinophils (%) (Auto) 6.4 % Basophils (%) (Auto) 0.4 % Neutrophils # (Auto) 6.87 K/uL Lymphocytes # (Auto) 1.40 K/uL Monocytes # (Auto) 0.73 K/uL Eosinophils # (Auto) 0.62 K/uL Basophils # (Auto) 0.04 K/uL RDW Standard Deviation 52.2 fL RDW Coefficient of Variation 15.8 % Immature Granulocyte % (Auto) 0.5 % Immature Granulocyte # (Auto) 0.05 K/uL Prothrombin Time 10.0 SECONDS Prothromb Time International Ratio 1.0 Activated Partial Thromboplast Time 25.7 SECONDS Partial Thromboplastin Ratio 1.0 Sodium Level 129 mmol/L Potassium Level 4.0 mmol/L Chloride Level 93 mmol/L Carbon Dioxide Level 32 mmol/L Anion Gap 4.0 mmol/L Blood Urea Nitrogen 27 mg/dl Creatinine 1.17 mg/dl Est Creatinine Clear Calc Drug Dose 24.0 ml/min Estimated GFR () 49.6 Estimated GFR (Non- 42.8 BUN/Creatinine Ratio 23.3 Random Glucose 164 mg/dl Calcium Level 9.5 mg/dl Bedside Troponin I < 0.030 ng/ml Urine Color DK YELLOW Urine Appearance TURBID Urine pH 5.5 Urine Specific [place] 1.028 Urine Protein 1+ Urine Glucose (UA) NEG Urine Ketones NEG Urine Occult Blood 3+ Urine Nitrite NEG Urine Bilirubin NEG Urine Urobilinogen NEG Urine Leukocyte Esterase LARGE Urine WBC (Auto) >30 /hpf Urine RBC (Auto) >30 /hpf Urine Hyaline Casts (Auto) 0 /lpf Urine Epithelial Cells (Auto) >30 /lpf Urine Bacteria (Auto) 1+ Urine Pathogenic Casts /lpf Urine Yeast (Auto) BUD W/ HYPHAE Bedside Glucose 101 mg/dl Test 09/14/17 08:13 09/14/17 08:24 09/14/17 12:02 Bedside Glucose 107 mg/dl 143 mg/dl White Blood Count 8.15 K/uL Red Blood Count 3.97 M/uL Hemoglobin 12.2 g/dL Hematocrit 36.1 % Mean Corpuscular Volume 90.9 fL Mean Corpuscular Hemoglobin 30.7 pg Mean Corpuscular Hemoglobin Concent 33.8 g/dl RDW Standard Deviation 51.8 fL RDW Coefficient of Variation 16.0 % Platelet Count 174 K/uL Mean Platelet Volume 10.1 fL Sodium Level 133 mmol/L Potassium Level 4.0 mmol/L Chloride Level 97 mmol/L Carbon Dioxide Level 28 mmol/L Anion Gap 8.0 mmol/L Blood Urea Nitrogen 18 mg/dl Creatinine 0.83 mg/dl Est Creatinine Clear Calc Drug Dose 33.8 ml/min Estimated GFR () 75.1 Estimated GFR (Non- 64.8 BUN/Creatinine Ratio 21.7 Random Glucose 116 mg/dl Calcium Level 8.7 mg/dl Magnesium Level 1.8 mg/dl Assessment & Plan Assessment L4 compression fracture. Plan at this time she certainly has advanced fracture L4 vertebral body. She does however want to avoid surgical intervention if possible. It is reasonable to go with LSO bracing when outside of the bed. We would continue with observation only and avoid any surgical intervention at this time. Clearly she declines or find that she isn't fails to improve the next several weeks we may consider kyphoplasty.
[2017-09-14 15:37] VITALS: BP 141/81; PULSE 74; TEMP 36.5; O2SAT 96
[2017-09-14] MEDS ORDERED: SODIUM CHLORIDE 0.9% 500ML 500 ML IV SCH (16:00)
--- NOTE | 2017-09-14 16:16 | DIAGNOSTIC IMAGING REPORT ---
CHEST ONE VIEW PORTABLE CLINICAL HISTORY: cough, dyspnea COMPARISON STUDY: 09/13/2017 FINDINGS: The right lung base is now clear. Minimal scattered interstitial change. This considered chronic. Small fixed lateral hernia. IMPRESSION: Chronic change. No acute process. The above report was generated using voice recognition software. It may contain grammatical, syntax or spelling errors. Electronically signed by: Tommy Ness M.D. 09/14/2017 4:14 PM Dictated Date/Time: 09/14/2017 4:13 PM
[2017-09-14] MEDS: GUAIFENESIN 600 MG TABCR PO SCH (21:40)
[2017-09-14 23:08] VITALS: BP 128/81; PULSE 72; TEMP 36.5; O2SAT 97
[2017-09-15] MEDS ORDERED: NURSING VERBAL MED ORDER ONE ×3 (00:30→18:30)
[2017-09-15] MEDS ORDERED: DICLOFENAC SOD 1% GEL 100 GM TUBE EXT PRN (00:45)
[2017-09-15] MEDS: LEVOTHYROXINE 75 MCG TAB PO SCH (05:22)
[2017-09-15] MEDS: OXYCODONE HCL IR 5 MG TAB (IMMEDIATE RELEASE) PO PRN ×2 (07:39→12:49)
[2017-09-15 07:40] VITALS: BP 152/79; PULSE 67; TEMP 36.4; O2SAT 95
[2017-09-15] MEDS: INSULIN ASPART 100 UNITS/ML 3 ML PEN SC SCH ×3 (08:00→17:15)
[2017-09-15 08:12] LABS: HEMOGLOBIN A1C 6.8 % (4.5-5.6)
[2017-09-15 08:36] LABS: CALCIUM 9.1 mg/dl (8.5-10.1); CREATININE 0.8 mg/dl (0.60-1.20); POTASSIUM 3.7 mmol/L (3.5-5.1)
[2017-09-15] MEDS: ASPIRIN 81 MG ECTAB PO SCH (08:59)
[2017-09-15] MEDS: CALCIUM 600MG + VIT D 400 IU TAB PO SCH (08:59)
[2017-09-15] MEDS: METOPROLOL SUCC 50MG EXT REL TAB PO SCH (09:00)
[2017-09-15] MEDS: GABAPENTIN 100 MG CAP PO SCH ×3 (09:00→21:00)
[2017-09-15] MEDS: NIFEdipine 30 MG CR TAB PO SCH (09:00)
[2017-09-15] MEDS: CHOLECALCIFEROL 1000 INTER.UNIT TAB PO SCH (09:01)
[2017-09-15] MEDS: GUAIFENESIN 600 MG TABCR PO SCH ×2 (09:01→21:00)
[2017-09-15] MEDS: LIDODERM (LIDOCAINE) PATCH 5% TD SCH (09:02)
[2017-09-15] MEDS: HYDROXYCHLOROQUINE SULFATE 200 MG TAB PO SCH ×2 (09:09→21:00)
[2017-09-15] MEDS: HEPARIN SOD 5000 UNIT/0.5 ML CARP SQ SCH ×2 (09:09→21:00)
[2017-09-15] MEDS ORDERED: CEFTRIAXONE SOD INJ 1 GM in DEXTROSE 5% ADD-VANTAGE 50ML 50 ML IV SCH (12:00)
[2017-09-15] MEDS ORDERED: FLUCONAZOLE 100 MG TAB PO ONE (13:12)
[2017-09-15] MEDS: SODIUM CHLORIDE 0.9% 1000ML 1,000 ML IV SCH (14:22)
[2017-09-15] MEDS ORDERED: BISACODYL 10 MG SUPP PR ONE (14:30)
[2017-09-15] MEDS: CALCITONIN SALMON NA 200 IU/AC 3.7 ML BTL SCH (14:45)
[2017-09-15] MEDS ORDERED: POLYETHYLENE (MIRALAX) 17 GM PACK PO ONE (14:45)
[2017-09-15] MEDS: TAPENTADOL ER 50 MG TABCR PO SCH ×2 (14:48→20:58)
[2017-09-15 15:45] VITALS: BP 133/60; PULSE 72; TEMP 36.6; O2SAT 95
[2017-09-15] MEDS: TEMAZEPAM 7.5 MG CAP PO SCH (21:01)
--- NOTE | 2017-09-15 22:05 | Progress Note ---
Subjective Date of Service: Sep 15, 2017. Subjective Pt evaluation today including: conversation w/ patient, conversation w/ family (daughter by phone), physical exam, chart review, lab review, review of inpatient medication list Pain: back - severe, even despite oxycodone PO Intake: poor Voiding: babb catheter in place patient only tolerating transfers to bedside commode pain is severe - oxycodone only lasting 3 hours or so patient reports she has been taking narcotics for several years on a daily basis also c/o frequent fingerstick blood sugars and wants them d/c, if possible no bowel movement in several days Problem List Medical Problems: (1) Acute back pain Status: Acute (2) Compression fracture Status: Acute (3) Compression fracture of L4 lumbar vertebra Status: Acute (4) Fall Status: Acute (5) Left fibular fracture Status: Acute (6) Left tibial fracture Status: Acute (7) Low back pain Status: Acute (8) Lumbar compression fracture Status: Acute (9) Pulmonary nodule Status: Acute Review of Systems Constitutional: No fever Respiratory: + cough, No dyspnea at rest Cardiac: No chest pain Abdomen: + constipation, No pain Musculoskeletal: + see HPI Objective Vital Signs Date Time Temp Pulse Resp B/P (MAP) Pulse Ox O2 Delivery O2 Flow Rate FiO2 09/15/17 15:55 Room Air 09/15/17 15:45 36.6 72 18 133/60 (84) 95 Room Air 09/15/17 08:00 Room Air 09/15/17 07:40 36.4 67 18 152/79 (103) 95 Room Air 09/14/17 23:08 36.5 72 16 128/81 (97) 97 Room Air Physical Exam General Appearance: + mild distress (due to back pain), + thin ENT: pharynx normal (MM much more moist today) Neck: no JVD Respiratory/Chest: lungs clear, no respiratory distress, no accessory muscle use, + rales (scant rales bases) Cardiovascular: regular rate, rhythm, no gallop, no murmur Abdomen: normal bowel sounds, non tender, soft, no organomegaly Extremities: no pedal edema Neurologic/Psychiatric: alert, oriented x 3 Laboratory Results Last 24 Hours Test 09/15/17 07:45 09/15/17 08:01 09/15/17 11:59 09/15/17 17:06 Sodium Level 134 mmol/L Potassium Level 3.7 mmol/L Chloride Level 100 mmol/L Carbon Dioxide Level 26 mmol/L Anion Gap 8.0 mmol/L Blood Urea Nitrogen 14 mg/dl Creatinine 0.80 mg/dl Est Creatinine Clear Calc Drug Dose 35.1 ml/min Estimated GFR () 78.5 Estimated GFR (Non- 67.7 BUN/Creatinine Ratio 17.6 Random Glucose 106 mg/dl Estimated Average Glucose 148 mg/dl Hemoglobin A1c 6.8 % Calcium Level 9.1 mg/dl Thyroid Stimulating Hormone (TSH) 2.610 uIu/ml Bedside Glucose 102 mg/dl 167 mg/dl 110 mg/dl Assessment and Plan 86yo female with: 1. acute L4 compression fracture due to fall; this is an osteoporotic compression fx. Appreciate ortho consult. Conservative Rx at this time. LSO brace. Pain control. PT, OT. Needs rehab - [facility] in [place]. Patient has narcotic tolerance due to using oxycodone for several years. She is not progressing due to her pain. Reasonable to try nucynta ER 50mg q12h and cont the oxycodone prn. Watch for sedation/delirium from such. Assuming she has osteoporosis will add miacalcin nasal spray daily - this may help with pain as well. Cont lidoderm patches. Cont K-pad. 2. hyponatremia - due to dehydration - improving - cont fluids 50cc/hr of NS. BMP am. 3. acute kidney injury - 2nd to #2 - resolved. 4. CKD stage 3 - creatinine stable today. 5. vitamin D insufficiency - replace with 2000 IU vit D daily. 6. hypothyroidism - TSH compensated; cont synthroid. 7. anorexia, cough - cxr w/o pneumonia - likely viral syndrome/viral URI. 8. candidal albicans UTI - diflucan 100mg daily x 7 days. 9. constipation - bowel regimen. 10. HTN - controlled w/ outpatient regimen but holding HCTZ/losartan due to dehydration/electrolyte issues. 11. T2DM - mild - controlled w/ januvia. FSBS have been controlled and thus, given her repeated request to d/c blood sugar checks, reasonable to do so. 12. RA - cont hydroxychloroquine. updated daughter by phone hopefully to [facility] next 48 hours Continued [facility] stay due to: inadequate po fluid intake, inadequate oral pain control, voiding difficulties, ambulation difficulties, multiple IV medications needed, home environment unsafe for pt Discharge planning: [facility] facility
[2017-09-15 23:16] VITALS: BP 115/54; PULSE 79; TEMP 36.9; O2SAT 94
[2017-09-16 01:43] VITALS: O2SAT 94
[2017-09-16] MEDS: LEVOTHYROXINE 75 MCG TAB PO SCH (06:03)
[2017-09-16 07:40] VITALS: O2SAT 93
[2017-09-16 07:46] VITALS: BP 123/52; PULSE 77; TEMP 36.5; O2SAT 93
[2017-09-16] MEDS: CALCITONIN SALMON NA 200 IU/AC 3.7 ML BTL SCH (08:03)
[2017-09-16 08:26] LABS: CALCIUM 8.8 mg/dl (8.5-10.1); CREATININE 0.62 mg/dl (0.60-1.20); POTASSIUM 3.8 mmol/L (3.5-5.1)
[2017-09-16] MEDS: HEPARIN SOD 5000 UNIT/0.5 ML CARP SQ SCH ×2 (09:00→21:13)
[2017-09-16] MEDS: GUAIFENESIN 600 MG TABCR PO SCH ×2 (09:04→21:14)
[2017-09-16] MEDS: TAPENTADOL ER 50 MG TABCR PO SCH ×2 (09:04→21:13)
[2017-09-16] MEDS: OXYCODONE HCL IR 5 MG TAB (IMMEDIATE RELEASE) PO PRN ×2 (09:04→13:35)
[2017-09-16] MEDS: POLYETHYLENE (MIRALAX) 17 GM PACK PO SCH (09:05)
[2017-09-16] MEDS: LIDODERM (LIDOCAINE) PATCH 5% TD SCH (09:11)
[2017-09-16] MEDS: CALCIUM 600MG + VIT D 400 IU TAB PO SCH (09:12)
[2017-09-16] MEDS: METOPROLOL SUCC 50MG EXT REL TAB PO SCH (09:12)
[2017-09-16] MEDS: ASPIRIN 81 MG ECTAB PO SCH (09:12)
[2017-09-16] MEDS: HYDROXYCHLOROQUINE SULFATE 200 MG TAB PO SCH ×2 (09:13→21:14)
[2017-09-16] MEDS: NIFEdipine 30 MG CR TAB PO SCH (09:13)
[2017-09-16] MEDS: CHOLECALCIFEROL 1000 INTER.UNIT TAB PO SCH (09:13)
[2017-09-16] MEDS: SENNA 8.6 MG TAB PO SCH (09:13)
[2017-09-16] MEDS: GABAPENTIN 100 MG CAP PO SCH ×3 (09:14→22:08)
[2017-09-16] MEDS: FLUCONAZOLE 100 MG TAB PO SCH (09:15)
[2017-09-16] MEDS: SODIUM CHLORIDE 0.9% 1000ML 1,000 ML IV SCH (10:49)
--- NOTE | 2017-09-16 11:01 | Hospitalist Progress Note ---
Hospitalist Progress Note Date of Service Sep 16, 2017. (Bethany Ortiz ., DIMAS-C) Subjective Pt evaluation today including: conversation w/ patient, physical exam, chart review, lab review, review of inpatient medication list Pain: 8/10 throbbing low back pain PO Intake: Tolerating PO diet Voiding: no voiding problems The patient complains of an 8/10 throbbing pain in her lower back currently, but she has just finished working with physical therapy. She states she feels exhausted from PT. She still complains of a productive cough. She states that she gets a pain in her right upper abdomen that radiates around her right side while coughing, but denies any abdominal pain otherwise. She also complains of nausea but denies vomiting and is eating her meals. The patient denies fevers, chills, sweats, chest pain, palpitations, claudication, wheezing, shortness of breath, vomiting, dysuria, hematuria, urinary retention, paralysis, weakness, numbness and tingling. Additional Comments: See HPI for pertinent positives and negatives. All other systems reviewed and negative. (Bethany Ortiz ., DIMAS-C) Objective Vital Signs Date Time Temp Pulse Resp B/P (MAP) Pulse Ox O2 Delivery O2 Flow Rate FiO2 09/16/17 07:46 36.5 77 18 123/52 (75) 93 Room Air 09/16/17 07:40 93 Room Air 09/16/17 01:43 94 Room Air 09/15/17 23:16 36.9 79 18 115/54 (74) 94 Room Air 09/15/17 15:55 Room Air 09/15/17 15:45 36.6 72 18 133/60 (84) 95 Room Air (Bethany Ortiz ., DIMAS-C) Physical Exam Notes: General appearance: +Appears fatigued. Well-developed, well-nourished, no apparent distress Head: Normocephalic, atraumatic Eyes: Normal inspection, PERRL, EOMI ENT: Normal ENT inspection, hearing grossly normal, pharynx normal Neck: Supple, no JVD, trachea midline Respiratory/Chest: +Decreased breath sounds, exam limited by LSO brace. Lungs clear to auscultation, no respiratory distress Cardiovascular: Regular rate & rhythm, no gallop, no murmur Abdomen/GI: Normal bowel sounds, non-tender, soft Extremities/Musculoskeletal: Normal inspection, no calf tenderness, no pedal edema Neurological/Psych: +Disoriented to time. Alert, normal mood/affect, oriented x 2 Skin: Normal color, warm/dry, no rash (Bethany Ortiz ., BISMARKC) Laboratory Results Last 24 Hours Test 09/15/17 11:59 09/15/17 17:06 09/16/17 07:08 Bedside Glucose 167 mg/dl 110 mg/dl Sodium Level 135 mmol/L Potassium Level 3.8 mmol/L Chloride Level 103 mmol/L Carbon Dioxide Level 23 mmol/L Anion Gap 9.0 mmol/L Blood Urea Nitrogen 13 mg/dl Creatinine 0.62 mg/dl Est Creatinine Clear Calc Drug Dose 45.3 ml/min Estimated GFR () 96.0 Estimated GFR (Non- 82.8 BUN/Creatinine Ratio 20.7 Random Glucose 88 mg/dl Calcium Level 8.8 mg/dl (Bethany Ortiz ., DIMAS-C) Assessment and Plan 86 y/o female with a history of HTN, DM II, hypothyroidism, RA, neuropathy, insomnia, and previous L4 fracture February 2017 who presents with ambulatory dysfunction, fall and low back pain. Pt lives in assisted living and uses walker. She had a fall 1 day [employer] and has had lower back pain since. Acute L4 compression fracture--ongoing -Admit to med/surg. Change to full admit for placement to SNF -Lumbar CT shows acute compression fracture at L4. Fracture previously noted there but now with compression deformity with retropulsion and canal stenosis. -Consult orthopedics, appreciate recs: No surgical intervention at this time, but can consider kyphoplasty if continues to decline/fails to improve. Can use LSO brace when out of bed. -Continue Nucynta 50 mg PO q12h, lidoderm patch x3, oxycodone 5 mg PO q4h prn pain, and Flexeril 5 mg PO TID prn spasm. No IV morphine since 09/13 -Add scheduled Tylenol 1000 mg PO q8h -LSO brace Cough, possible URI--ongoing, likely viral -CXR no acute disease Dehydration--resolving -Renal function stable -NSS at 50 cc/hr Jessica UTI -Diflucan 100 mg PO qd. Day #2 HTN--stable -Continue Toprol XL 100 mg PO qd, nifedipine 30 mg PO q -Hyzaar on hold due to dehydration DM II--last HgbA1c 7.2 on 03/25/17 -Sugars well controlled here, no insulin has been required. Requesting to stop finger sticks which is reasonable given good control -HgbA1c 6.8 on 09/15 Hypothyroidism -Continue Synthroid 75 mcg PO qd RA -Continue Plaquenil 200 mg PO BID Neuropathy -Continue gabapentin 100 mg PO TID DVT prophylaxis -Heparin 5000 units SC q12h Code Status -Level I, FULL RESUSCITATION STATUS Dispo -Accepted to [facility]. Need one more midnight, anticipate discharge tomorrow Continued [facility] stay due to: home environment unsafe for pt (Bethany Ortiz ., PA-C) PA Physician Supervision Note: I interviewed and examined the patient. Discussed with Bethany Ortiz PAC and agree with findings and plan as documented in the note. Any exceptions or clarifications are listed here: None Patient is seen daughters at the bedside concerns about cough patient states it is not with eating although she is bothered by postnasal drip and feels her cough is secondary to this. Her back pain is tolerable but more present when she wishes for to be from her acute lumbar compression fracture she is chronically on pain control which makes it complicating concurrently being treated for Jessica UTI Vital signs show temp of 36 5 pulse 77 respiration rate 18 BP 123/52 Her lungs are clear in all zepeda the coughing is actually an upper airway it could be from postnasal drip or some swallowing difficulties although the patient denies these. Acute L4 lumbar compression fracture will escalate pain control by adding scheduled Tylenol to her opiate regime will try Relistor for opiate-induced constipation continuing treatment of her diabetes Jessica UTI and adjusting medications for her chronic kidney disease with eyes towards placement in the next 1-2 days Documented By: Jose Slade (Jose Slade M.D.)
[2017-09-16] MEDS: ACETAMINOPHEN 500 MG TAB PO SCH ×2 (15:16→21:15)
[2017-09-16 15:54] VITALS: BP 104/51; PULSE 75; TEMP 36.6; O2SAT 99
[2017-09-16] MEDS ORDERED: SODIUM CHLORIDE 0.65% NA SOLN 45 ML (OCEAN) PRN (18:30)
[2017-09-16] MEDS ORDERED: METHYLNALTREXONE BROMIDE INJ 12 MG/0.6 ML SYR SQ SCH (18:30)
[2017-09-16] MEDS: TEMAZEPAM 7.5 MG CAP PO SCH (21:20)
[2017-09-16 23:33] VITALS: BP 113/66; PULSE 67; TEMP 36.3; O2SAT 98
[2017-09-17 00:25] VITALS: O2SAT 93
[2017-09-17] MEDS: ACETAMINOPHEN 500 MG TAB PO SCH ×3 (05:53→21:32)
[2017-09-17] MEDS: LEVOTHYROXINE 75 MCG TAB PO SCH (05:53)
[2017-09-17] MEDS: SODIUM CHLORIDE 0.9% 1000ML 1,000 ML IV SCH (06:25)
[2017-09-17 07:20] VITALS: BP 104/61; PULSE 66; TEMP 36.6; O2SAT 92
[2017-09-17] MEDS ORDERED: MILK AND MOLASSES ENEMA PR PRN (10:00)
[2017-09-17] MEDS ORDERED: MILK AND MOLASSES ENEMA PR ONE (10:00)
[2017-09-17] MEDS ORDERED: BISACODYL 10 MG SUPP PR ONE (10:00)
[2017-09-17] MEDS: CALCITONIN SALMON NA 200 IU/AC 3.7 ML BTL SCH (10:55)
[2017-09-17] MEDS: FLUCONAZOLE 100 MG TAB PO SCH (10:55)
[2017-09-17] MEDS: NIFEdipine 30 MG CR TAB PO SCH (10:55)
[2017-09-17] MEDS: HYDROXYCHLOROQUINE SULFATE 200 MG TAB PO SCH ×2 (10:55→21:31)
[2017-09-17] MEDS: GABAPENTIN 100 MG CAP PO SCH ×3 (10:56→21:32)
[2017-09-17] MEDS: GUAIFENESIN 600 MG TABCR PO SCH ×2 (10:57→21:31)
[2017-09-17] MEDS: POLYETHYLENE (MIRALAX) 17 GM PACK PO SCH (10:57)
[2017-09-17] MEDS: ASPIRIN 81 MG ECTAB PO SCH (10:58)
[2017-09-17] MEDS: CHOLECALCIFEROL 1000 INTER.UNIT TAB PO SCH (10:58)
[2017-09-17] MEDS: SENNA 8.6 MG TAB PO SCH (10:58)
[2017-09-17] MEDS: CALCIUM 600MG + VIT D 400 IU TAB PO SCH (10:58)
[2017-09-17] MEDS: METOPROLOL SUCC 50MG EXT REL TAB PO SCH (10:58)
[2017-09-17] MEDS: LIDODERM (LIDOCAINE) PATCH 5% TD SCH (11:00)
[2017-09-17] MEDS: HEPARIN SOD 5000 UNIT/0.5 ML CARP SQ SCH ×2 (11:12→21:32)
[2017-09-17] MEDS: TAPENTADOL ER 50 MG TABCR PO SCH ×2 (11:14→21:31)
[2017-09-17] MEDS: OXYCODONE HCL IR 5 MG TAB (IMMEDIATE RELEASE) PO PRN ×2 (12:21→16:56)
--- NOTE | 2017-09-17 15:10 | Hospitalist Progress Note ---
Hospitalist Progress Note Date of Service Sep 17, 2017. (Bethany Ortiz ., BISMARKC) Subjective Pt evaluation today including: conversation w/ patient, conversation w/ family (daughter at bedside), physical exam, chart review, lab review, review of inpatient medication list Pain: 7-8 out of 10 dull low back pain PO Intake: Tolerating PO diet Voiding: no voiding problems The patient states that her pain is about the same. She complains of a 7 or 8 out of 10 dull pain in the lower back at the time of my exam, as she had just been moved to the bedside commode. Per nursing, she had complained of no pain at all earlier in the morning. She still has not had a bowel movement yet. The patient denies fevers, chills, sweats, chest pain, palpitations, claudication, cough, wheezing, shortness of breath, nausea, vomiting, abdominal pain, dysuria, hematuria, urinary retention, paralysis, weakness, numbness and tingling. Additional Comments: See HPI for pertinent positives and negatives. All other systems reviewed and negative. (Bethany Ortiz ., DIMAS-C) Objective Vital Signs Date Time Temp Pulse Resp B/P (MAP) Pulse Ox O2 Delivery O2 Flow Rate FiO2 09/17/17 08:09 Room Air 09/17/17 07:20 36.6 66 18 104/61 (75) 92 Room Air 09/17/17 00:25 93 Room Air 09/16/17 23:33 36.3 67 16 113/66 (82) 98 Room Air 09/16/17 15:54 36.6 75 16 104/51 (68) 99 Room Air 09/16/17 15:15 Room Air (Bethany Ortiz ., DIMAS-C) Physical Exam Notes: General appearance: Well-developed, well-nourished, no apparent distress Head: Normocephalic, atraumatic Eyes: Normal inspection, PERRL, EOMI ENT: Normal ENT inspection, hearing grossly normal, pharynx normal Neck: Supple, no JVD, trachea midline Respiratory/Chest: +Decreased breath sounds. Lungs clear to auscultation, no respiratory distress Cardiovascular: Regular rate & rhythm, no gallop, no murmur Abdomen/GI: Normal bowel sounds, non-tender, soft Extremities/Musculoskeletal: Normal inspection, no calf tenderness, no pedal edema Neurological/Psych: +Disoriented to time. Alert, normal mood/affect, oriented x 2 Skin: Normal color, warm/dry, no rash (Bethany Ortiz ., PAAniC) Assessment and Plan 86 y/o female with a history of HTN, DM II, hypothyroidism, RA, neuropathy, insomnia, and previous L4 fracture February 2017 who presents with ambulatory dysfunction, fall and low back pain. Pt lives in assisted living and uses walker. 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 Acute L4 compression fracture--ongoing -Admit to med/surg. Change to full admit for placement to SNF -Lumbar CT shows acute compression fracture at L4. Fracture previously noted there but now with compression deformity with retropulsion and canal stenosis. -Consult orthopedics, appreciate recs: No surgical intervention at this time, but can consider kyphoplasty if continues to decline/fails to improve. Can use LSO brace when out of bed. -Continue Nucynta 50 mg PO q12h, lidoderm patch x3, oxycodone 5 mg PO q4h prn pain, and Flexeril 5 mg PO TID prn spasm. No IV morphine since 09/13 -Continue scheduled Tylenol 1000 mg PO q8h -LSO brace Cough, possible URI--ongoing, likely viral -CXR no acute disease Dehydration--resolved -Renal function stable -D/C IVF Jessica UTI -Diflucan 100 mg PO qd. Day #3 Constipation -No BM despite scheduled Miralax and even after Dulcolax suppository -No BM after milk and molasses enema -Will try Golytely bowel prep 8 oz PO q4h until bowel movement HTN--stable -Continue Toprol XL 100 mg PO qd, nifedipine 30 mg PO q -Hyzaar on hold due to dehydration DM II--last HgbA1c 7.2 on 03/25/17 -Sugars well controlled here, no insulin has been required. Requesting to stop finger sticks which is reasonable given good control -HgbA1c 6.8 on 09/15 Hypothyroidism -Continue Synthroid 75 mcg PO qd RA -Continue Plaquenil 200 mg PO BID Neuropathy -Continue gabapentin 100 mg PO TID DVT prophylaxis -Heparin 5000 units SC q12h Code Status -Level I, FULL RESUSCITATION STATUS Dispo -Accepted to [facility]. Able to take when medically stable (Bethany Ortiz ., PA-C) PA Physician Supervision Note: I interviewed and examined the patient. Discussed with Bethany Ortiz PAC and agree with findings and plan as documented in the note. Any exceptions or clarifications are listed here: None Patient's biggest complaint remains constipation she has pain with transitions of movement however at rest she is in good control without much discomfort Vital signs show temperature 36 6 pulse of 66 respiration rate 18 BP 104/61 Cardiac exam is regular lungs are clear abdomen is a slightly bit full and doughy especially in the left lower quadrant The patient will continue to have pain control for her lumbar compression fracture in we will attempt to escalate her cathartic agents to promote stool prior to going to rehabilitation Documented By: Jose Slade (Jose Slade M.D.)
[2017-09-17 16:11] VITALS: BP 139/97; PULSE 71; TEMP 36.2; O2SAT 99
[2017-09-17] MEDS: LAVAGE SOLUTION 4000ML PO SCH ×2 (16:21→20:05)
[2017-09-17] MEDS ORDERED: NURSING VERBAL MED ORDER ONE (18:30)
[2017-09-17] MEDS ORDERED: ONDANSETRON INJ 2 MG/ML 2 ML VIAL IV PRN (18:45)
[2017-09-17] MEDS: TEMAZEPAM 7.5 MG CAP PO SCH (21:32)
[2017-09-17 23:26] VITALS: BP 124/69; PULSE 72; TEMP 36.4; O2SAT 100
[2017-09-18] MEDS: LAVAGE SOLUTION 4000ML PO SCH ×2 (00:19→04:14)
[2017-09-18] MEDS: LEVOTHYROXINE 75 MCG TAB PO SCH (06:13)
[2017-09-18] MEDS: ACETAMINOPHEN 500 MG TAB PO SCH (06:14)
[2017-09-18] MEDS: OXYCODONE HCL IR 5 MG TAB (IMMEDIATE RELEASE) PO PRN ×2 (06:14→12:25)
[2017-09-18 07:15] VITALS: BP 116/72; PULSE 75; TEMP 36.5; O2SAT 94
[2017-09-18] MEDS: SENNA 8.6 MG TAB PO SCH (09:00)
[2017-09-18] MEDS: POLYETHYLENE (MIRALAX) 17 GM PACK PO SCH (09:00)
[2017-09-18] MEDS: CALCIUM 600MG + VIT D 400 IU TAB PO SCH (09:10)
[2017-09-18] MEDS: FLUCONAZOLE 100 MG TAB PO SCH (09:10)
[2017-09-18] MEDS: ASPIRIN 81 MG ECTAB PO SCH (09:10)
[2017-09-18] MEDS: GUAIFENESIN 600 MG TABCR PO SCH (09:11)
[2017-09-18] MEDS: GABAPENTIN 100 MG CAP PO SCH (09:11)
[2017-09-18] MEDS: HYDROXYCHLOROQUINE SULFATE 200 MG TAB PO SCH (09:11)
[2017-09-18] MEDS: CALCITONIN SALMON NA 200 IU/AC 3.7 ML BTL SCH (09:11)
[2017-09-18] MEDS: CHOLECALCIFEROL 1000 INTER.UNIT TAB PO SCH (09:11)
[2017-09-18] MEDS: LIDODERM (LIDOCAINE) PATCH 5% TD SCH (09:12)
[2017-09-18] MEDS: METOPROLOL SUCC 50MG EXT REL TAB PO SCH (09:13)
[2017-09-18] MEDS: NIFEdipine 30 MG CR TAB PO SCH (09:13)
[2017-09-18] MEDS: HEPARIN SOD 5000 UNIT/0.5 ML CARP SQ SCH (09:20)
[2017-09-18] MEDS: TAPENTADOL ER 50 MG TABCR PO SCH (09:22)
[2017-09-18] MEDS ORDERED: NCYSR50 PO (10:10)
[2017-09-18] MEDS ORDERED: DFL100 PO (10:10)
[2017-09-18] MEDS ORDERED: SENN-61 PO (10:10)
[2017-09-18] MEDS ORDERED: LDDP5 TD (10:10)
[2017-09-18] MEDS ORDERED: MRLP17 PO (10:10)
[2017-09-18] MEDS ORDERED: MCLIN (10:10)
[2017-09-18] MEDS ORDERED: RXC5 PO (10:10)
[2017-09-18] MEDS ORDERED: ACET-24 PO (10:10)
--- NOTE | 2017-09-18 10:27 | Discharge Instructions ---
Discharge Instructions Date of Service Sep 18, 2017. Admission Reason for Admission: Gait Abnormality; Low Back Pain Discharge Discharge Diagnosis / Problem: Acute L4 compression fracture Discharge Goals Goal(s): Decrease discomfort, Improve function, Diagnostic testing, Therapeutic intervention Activity Recommendations Activity Level: Assistance Required Therapies: Physical Therapy, Occupational Therapy . Additional Information Patient informed of condition: Yes Advance Directives: Yes DNR: No Level of Care: Skilled (subacute rehab) Communicable Disease: No Prognosis: Stable [place] Catheter: No Instructions / Follow-Up Instructions / Follow-Up The patient was admitted following a fall and sustained an acute compression fracture at L4. She was evaluated by orthopedic spine surgery, who did not recommend surgical correction at this time. The patient does have a LSO brace, and her pain has been managed on oral/topical medications for the last several days. The patient did develop likely opioid induced constipation, which was resolved with some doses of bowel prep. She was found to have a candidal UTI while inpatient, which is currently being treated with Diflucan. Medications: *Diflucan 100 mg PO qd x 3 days to complete total 7 day course. First dose due 09/19 as pt already received 09/18 dose while inpatient. *Continue scheduled Tylenol 1000 mg PO q8h, oxycodone IR 5 mg PO q4h prn, Nucynta 50 mg PO BID, calcitonin nasal spray daily, and Lidoderm patch x 3 to lower back qam for pain. *Continue scheduled daily MiraLAX and Senokot 17.2 mg PO qd for constipation. *Continue other home medications as prescribed. Follow up: *Follow up with primary care provider/facility medical provider. 3 days of opioids provided. *Follow up with Dr. Lowery of ortho spine if patient is deteriorating; could consider kyphoplasty. Current Hospital Diet Patient's current hospital diet: AHA Diet (Heart Healthy), Diabetes Type 2 Diet Discharge Diet Recommended Diet: AHA Diet (Heart Healthy), Diabetes Type 2 Diet Pending Studies Studies pending at discharge: no Physician Orders On Transfer Special Precautions: Fall precautions Vital Signs: Routine Additional Orders: Monitor for bowel movements, may require more intensive bowel regimen Apply Lidoderm patches along lower back. Apply for 12 hours, remove for 12 hours Laboratory Results Hemoglobin A1c Test 09/15/17 07:45 Range/Units Estimated Average Glucose 148 mg/dl Hemoglobin A1c 6.8 H 4.5-5.6 % Medical Emergencies . Who to Call and When: Medical Emergencies: If at any time you feel your situation is an emergency, please call 911 immediately. . Non-Emergent Contact Non-Emergency issues call your: Primary Care Provider, Surgeon (Dr. Lowery ortho spine) Call Non-Emergent contact if: you have a fever, your pain is not controlled, your pain is worsening, your pain is unusual for you, your pain is concerning you, you have any medication questions . Past History Medical & Surgical History: (1) Lumbar compression fracture . "Provider Documentation" section prepared by Bethany Ortiz. . Core Measure Problem Core Measures: None [place] Drug Monitoring Program Search Results: see additional documentation Drug Monitoring Findings: No recent issues identified, patient did have what appears to be overlapping prescriptions in March of 2017, but none since then
--- NOTE | 2017-09-18 10:34 | Discharge Summary ---
Discharge Summary Date of Service Sep 18, 2017. Discharge Summary Admission Date: Sep 14, 2017 at 12:01 Discharge Date: Sep 18, 2017 Discharge Disposition: longterm facility (subacute rehab) Principal Diagnosis: Acute L4 compression fracture Problems/Secondary Diagnoses: HTN, DM II, hypothyroidism, RA, neuropathy, insomnia Immunizations: Have You Had Influenza Vaccine: Yes Influenza Vaccine Date: May 01, 2012 History of Tetanus Vaccine?: No History of Pneumococcal: Yes Pneumococcal Date: May 01, 2012 History of Hepatitis B Vaccine: No Procedures: CHEST ONE VIEW PORTABLE HISTORY: 86 years-old Female CHEST PAIN acute atypical chest pain COMPARISON: Chest radiograph 03/23/2017 TECHNIQUE: Portable AP view of the chest FINDINGS: Cardiac silhouette is again mildly enlarged. Atherosclerosis of the aorta. Patient is mildly rotated to the left. There is no pneumothorax or pleural effusion. Hazy ill-defined subsegmental opacity of the lateral left lung base with patchy right basilar opacities. Bones appear moderately demineralized. Chronic fracture deformity of the proximal left humerus. IMPRESSION: 1. Subtle bibasilar opacities suggest atelectasis or pneumonitis. 3. Chronic fracture deformity of the proximal left humerus. [~ rep ct add3]] LUMBAR SPINE WITHOUT HISTORY: 86 years-old Female eval for trauma acute back pain status post recent fall COMPARISON: Lumbar spine CT 02/22/2017, CT abdomen and pelvis of same day TECHNIQUE: Multiple axial CT images of the lumbar spine were obtained without contrast. A dose lowering technique was used consistent with the principals of KARENRA. FINDINGS: There is an acute to subacute appearing compression deformity at L4 involving the anterior and middle columns with 40% loss of vertebral body height. There is 3 mm retropulsion which results in mild central canal stenosis. No fracture extension into the pedicles or posterior elements. Chronic compression deformity at T12 with marked loss of the anterior vertebral body height appears unchanged with focal mild kyphosis at this level. 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 Multilevel facet arthrosis and endplate spurring with moderately demineralized appearance of the bones. No additional acute fracture or subluxation identified. Sacrum appears intact. No significant intervertebral disc space narrowing. Linear subsegmental bibasilar opacities suggest atelectasis. No acute intra-abdominal abnormality identified. IMPRESSION: 1. Acute to subacute appearing compression deformity at L4 involves the anterior and middle columns with 40% loss of vertebral body height. 3 mm retropulsion results in mild central canal stenosis. 2. Chronic compression deformity at T12 with marked loss of the anterior vertebral body height appears unchanged. Mild focal kyphotic curvature centered at this level. 3. Moderately demineralized appearance of the bones. ABDOMEN AND PELVIS CT WITH IV CONTRAST HISTORY: Acute low back pain with recent fall eval for trauma TECHNIQUE: Multiaxial CT images of the abdomen and pelvis were performed following the use of intravenous contrast. A dose lowering technique was utilized adhering to the principles of ALARA. COMPARISON STUDY: CT lumbar spine of same day, CT abdomen and pelvis 03/09/2016. FINDINGS: Study is limited secondary to patient motion and positioning of the patient's arms. Mild subsegmental bibasilar atelectasis. There is no pneumatosis or pneumoperitoneum identified. Coronary arterial disease. Imaged inferior cardiac chambers are mildly enlarged. Scattered low attenuating lesions throughout the liver are again noted measuring up to 1.3 cm within the right hepatic lobe appear unchanged suggesting hepatic cysts. No intrahepatic biliary ductal dilation identified. The gallbladder, spleen and right adrenal gland are unremarkable. Mild nodular thickening of the left adrenal gland. There is marked generalized atrophy of the pancreas. Previously described cystic foci of the pancreas are not as well seen on today's study secondary to patient motion. Kidneys, ureters and urinary bladder are within normal limits. No ascites. Ossifications of the uterus suggests calcified fibroid measuring up to 8 mm. Indeterminate calcifications are also seen within the left adnexal region. Moderate to extensive atherosclerosis of the aorta without aneurysm. No bulky adenopathy. There is no bowel obstruction or focal bowel wall thickening identified. Duodenal diverticulum. Moderate colonic diverticulosis without diverticulitis. Moderate volume of formed stool throughout the colon suggest constipation. Normal appendix. Mild diastases recti. Soft tissues appear to be unremarkable. The bones appear moderately demineralized. There is mild cortical irregularity and sclerosis involving the anterolateral left sixth rib seen on image 48 series 3 which appears new from prior study suspicious for acute subacute nondisplaced fracture. Compression fracture of the L4 vertebral body with 3 mm retropulsion is noted in addition to a chronic appearing compression forming of the T12 vertebral body. Finding and T12 is remote and the fracture at L4 is new from comparison study 03/09/2016. IMPRESSION: 1. Acute to subacute appearing compression deformity of L4 involves the anterior and middle columns with 3 mm retropulsion, further discussed on CT lumbar spine of same day. This is new from comparison study 03/09/2016. 2. Remote compression deformity at T12. 3. Suggested constipation. 5. Moderately motion degraded study with additional findings as above. CHEST ONE VIEW PORTABLE CLINICAL HISTORY: cough, dyspnea COMPARISON STUDY: 09/13/2017 FINDINGS: The right lung base is now clear. Minimal scattered interstitial change. This considered chronic. Small fixed lateral hernia. IMPRESSION: Chronic change. No acute process. Consultations: Orthopedic spine surgery Medication Reconciliation New Medications: Acetaminophen (Sb Non-Aspirin Extra Stre) 500 Mg Tab 1000 MG PO Q8 for 7 Days, #42 TAB Calcitonin Peralta (Calcitonin-Peralta) 30 [place]/3.7 Ml Soln 1 SPRAY NA DAILY for 7 Days, #7 DOSE Fluconazole (Fluconazole) 100 Mg Tab 100 MG PO QAM for 3 Days, #3 TAB First dose 09/19 Lidocaine (Lidocaine) 1 Patch Tdsy 3 PATCH TD QAM for 7 Days, #21 PATCH Apply to low back for 12 hours, remove for 12 hours Oxycodone HCl (Oxycodone HCl) 5 Mg Tab 5 MG PO Q4H PRN for Pain for 3 Days, #12 TAB Polyethylene (Miralax) 17 Gm Pow 17 GM PO DAILY for 30 Days, #30 DOSE Senna (Senokot) 8.6 Mg Tab 17.2 MG PO QAM for 30 Days, #60 TAB Tapentadol HCl (Nucynta ER) 50 Mg Tabcr 50 MG PO Q12 for 3 Days, #6 TABS Continued Medications: Artificial Tear Solution (Artificial Tears) 1 Gloria Gloria 1 DROPS OP DIRECTED PRN for DRYNESS, #30 ML 5 Refills Aspirin (Aspirin Ec) 81 Mg Tab 81 MG PO QAM Calcium Carbonate-Vitamin D W/ (Caltrate 600 Plus) 1 Tab Tab 1 TAB PO QAM, TAB Cyclobenzaprine Hcl (Flexeril) 5 Mg Tab 5 MG PO TID PRN for Muscle Spasm, TAB Folic Acid (Folvite) 1 Mg Tab 1 MG PO TID, TAB Gabapentin (Neurontin) 100 Mg Cap 100 MG PO TID, CAP Hctz/Losartan (Hyzaar 12.5MG/50MG) Tab 1 TAB PO DAILY, TAB Hydroxychloroquine Sulfate (Plaquenil) 200 Mg Tab 200 MG PO BID, TAB Levothyroxine Sodium (Levothyroxine Sodium) 75 Mcg Tab 75 MCG PO QAM Methotrexate (Methotrexate) 2.5 Mg Tab 10 MG PO WK, TAB TAKE 4 TABLETS EVERY THURSDAY Metoprolol Succinate (Metoprolol Succinate ER) 100 Mg Tabcr 100 MG PO QAM Mouthwashes (Biotene Dry Mouth Gentle) 1 Liq Liq 1 SPRAY PO DIRECTED PRN for DRYNESS Nifedipine Ext Rel (Procardia Xl Ext Rel) 30 Mg Tabcr 30 MG PO QAM, TAB Ondansetron Hcl (Zofran) 4 Mg Tab 4 MG PO Q4H PRN for Nausea, TAB Probiotic Product (Align) 4 Mg Cap 4 MG PO QAM Sennosides-Docusate Sodium (Sennalax-S) 1 Tab Tab 2 TBS PO HS PRN for Constipation Sitagliptin Phosphate (Januvia) 100 Mg Tab 100 MG PO QAM, TAB Temazepam (Temazepam) 7.5 Mg Cap 7.5 MG PO HS Discontinued Medications: Acetaminophen (Tylenol) 325 Mg Tab 650 MG PO Q4H PRN for Pain or Fever, TAB FOR MILD PAIN OR TEMP >100.4. Lidocaine (Lidocaine) 5 % Pad 1 PATCH TOP DAILY PRN for Posthepetic Neuralgia NEEDED FOR PAIN, ON AT 0900 HOURS OFF AT 2000 HOURS Oxycodone HCl (Oxycodone HCl) 5 Mg Tab 5 MG PO BID PRN for Pain Polyethylene (Polyethylene Glycol 3350) 527 Gm Soln 1 DOSE PO DAILY PRN for Constipation, #255 Discharge Exam Patient reports her pain is about the same. She complains of 8/10 dull low back pain currently, but her Lidoderm patches are just being applied by nursing during my exam and she has not received any oxycodone today. She has not required IV morphine for several days. She does report moving her bowels a few times this morning following several doses of bowel prep. She still has a productive cough. The patient denies fevers, chills, sweats, chest pain, palpitations, claudication, wheezing, shortness of breath, nausea, vomiting, abdominal pain, dysuria, hematuria, urinary retention, paralysis, weakness, numbness and tingling. Constitutional: No fever, No chills, No sweats Eyes: No worsening of vision, No eye pain, No diplopia ENT: No hearing loss, No nasal symptoms, No trouble swallowing Respiratory: +Cough. No wheezing, No shortness of breath Cardiovascular: No chest pain, No claudication, No palpitations Abdomen: No pain, No nausea, No vomiting Musculoskeletal: +Low back pain. No muscle pain, No swelling Genitourinary - Female: No dysuria, No urinary retention, No hematuria Neurologic: No paralysis, No weakness, No numbness/tingling Integumentary: No rash, No itch, No color change General appearance: Well-developed, well-nourished, no apparent distress Head: Normocephalic, atraumatic Eyes: Normal inspection, PERRL, EOMI ENT: Normal ENT inspection, hearing grossly normal, pharynx normal Neck: Supple, no JVD, trachea midline Respiratory/Chest: +Decreased breath sounds. Lungs clear to auscultation, no respiratory distress Cardiovascular: Regular rate & rhythm, no gallop, no murmur Abdomen/GI: Normal bowel sounds, non-tender, soft Extremities/Musculoskeletal: Normal inspection, no calf tenderness, no pedal edema Neurological/Psych: +Disoriented to time. Alert, normal mood/affect, oriented x 2 Skin: Normal color, warm/dry, no rash Hospital Course 86 y/o female with a history of HTN, DM II, hypothyroidism, RA, neuropathy, insomnia, and previous L4 fracture February 2017 who presents with ambulatory dysfunction, fall and low back pain. Pt lives in assisted living and uses walker. 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 Acute L4 compression fracture--ongoing -Admit to med/surg. Change to full admit for placement to SNF -Lumbar CT shows acute compression fracture at L4. Fracture previously noted there but now with compression deformity with retropulsion and canal stenosis. -Consult orthopedics, appreciate recs: No surgical intervention at this time, but can consider kyphoplasty if continues to decline/fails to improve. Can use LSO brace when out of bed. -Continue Nucynta 50 mg PO q12h, lidoderm patch x3, oxycodone 5 mg PO q4h prn pain, and Flexeril 5 mg PO TID prn spasm. No IV morphine since 09/13 -Continue scheduled Tylenol 1000 mg PO q8h -LSO brace Cough, possible URI--ongoing, likely viral -CXR no acute disease Dehydration--resolved -Renal function stable -D/C IVF Jessica UTI -Diflucan 100 mg PO qd. 4 doses of 7 given while inpatient, continue at SNF Constipation--resolving -No BM despite scheduled Miralax and even after Dulcolax suppository -No BM after milk and molasses enema -Given Golytely bowel prep 8 oz PO q4h until bowel movement, now moving bowels HTN--stable -Continue Toprol XL 100 mg PO qd, nifedipine 30 mg PO q -Hyzaar on hold due to dehydration DM II--last HgbA1c 7.2 on 03/25/17 -Sugars well controlled here, no insulin has been required. Requesting to stop finger sticks which is reasonable given good control -Continue Januvia when outpt -HgbA1c 6.8 on 09/15 Hypothyroidism -Continue Synthroid 75 mcg PO qd RA -Continue Plaquenil 200 mg PO BID Neuropathy -Continue gabapentin 100 mg PO TID DVT prophylaxis -Heparin 5000 units SC q12h Code Status -Level I, FULL RESUSCITATION STATUS Dispo -Accepted to [facility]. Able to take when medically stable DIMAS Physician Supervision Note: I interviewed and examined the patient. Discussed with Bethany Ortiz PAC and agree with findings and plan as documented in the note. Any exceptions or clarifications are listed here: None Patient is seen today in the presence of her daughter should've good results with bowel movements. She remains with intermittent back pain from her lumbar compression fracture Vital signs show a temperature 64 pulse 72 respiration rate 17 BP 124/69 Her cardiac exam is regular lungs are clear although she cannot sit to listen posteriorly as well as laterally and anteriorly Patient will go to subacute rehabilitation for her lumbar compression fracture with opiate pain control and continued attention to her constipation Documented By: Jose Slade Total Time Spent: Greater than 30 minutes This includes examination of the patient, discharge planning, medication reconciliation, and communication with other providers. Discharge Instructions Please refer to the electronic Patient Visit Report (Discharge Instructions) for additional information. Additional Copies To Sarah Robert PA-C
[2017-09-18 11:13] VITALS: BP 116/72; PULSE 75; TEMP 36.5; O2SAT 94
== END 2017-09-18 13:00 | DRG 543 ==
LOC: EDBD 17:36 → C.EDC 17:38 → C.MSN 21:24 → ENRESERV 21:57 → OBSVTOIN 09-14 12:01
PROVIDERS: ADMIT Internal Medicine; ATTEND Internal Medicine
DX: M84.48XA Pathological fracture, other site, initial encounter for fracture (principal); E87.1 Hypo-osmolality and hyponatremia; N17.9 Acute kidney failure, unspecified; B37.49 Other urogenital candidiasis; M06.9 Rheumatoid arthritis, unspecified; I12.9 Hypertensive chronic kidney disease with stage 1 through stage 4 chronic kidney disease, or unspecified chronic kidney disease; E03.9 Hypothyroidism, unspecified; Z83.3 Family history of diabetes mellitus; Z82.49 Family history of ischemic heart disease and other diseases of the circulatory system; Z79.82 Long term (current) use of aspirin; N18.3 Chronic kidney disease, stage 3 (moderate); K59.00 Constipation, unspecified; E11.22 Type 2 diabetes mellitus with diabetic chronic kidney disease

== ENCOUNTER → 2017-12-28 | Outpatient (CLI) | payer OTHER ==
[~2017-12-28] MED LIST changes: -ACET-1256 PO; +ACET-24 PO; +ARTISOL12 OP; -ARTISPR OR; -ASPEC81 PO; +ASPI81TA28 PO; +DFL100 PO; -DOCU100C22 PO; -GABA-112 PO; -GLYCDRO6 OP; -INSDGIPEN SC; +LDDP5 TD; -LIDO1PAD2 TOP; +MCLIN; +MOUT1LIQ45 PO; +MRLP17 PO; -MRLP527 PO; +NCYSR50 PO; +ONDA4TAB46 PO; +SENN-61 PO; -TEMA7.5C13 PO
[2017-12-28 17:24] LABS: BASO % 0.2 %; BASO ABS # 0.02 K/uL (0-0.2); HEMATOCRIT 42.6 % (37-47); HEMOGLOBIN 14.9 g/dL (12.0-16.0); IG# 0.06 K/uL (0.00-0.02); LYMPH % 26.5 %; LYMPH ABS # 2.58 K/uL (1.2-3.4); MEAN CELL VOLUME 89.1 fL (80-100); MEAN CORPUSCULAR HEMOGLOBIN 31.2 pg (25-34); MONO % 9.2 %; NEUT % 63.5 %; NEUT ABS # 6.19 K/uL (1.4-6.5); PLATELET COUNT 222 K/uL (130-400); RED CELL DISTRIBUTION WIDTH CV 14.7 % (11.5-14.5); RED CELL DISTRIBUTION WIDTH SD 46.6 fL (36.4-46.3); WHITE BLOOD COUNT 9.75 K/uL (4.8-10.8)
[2017-12-28 18:20] LABS: ALBUMIN 3.6 gm/dl (3.4-5.0); ALT/SGPT 24 U/L (12-78); AST/SGOT 21 U/L (15-37); CREATININE 1.27 mg/dl (0.60-1.20)
[2017-12-28 18:23] LABS: ALKALINE PHOSPHATASE 96 U/L (45-117); TOTAL PROTEIN 7.5 gm/dl (6.4-8.2)
== END | disposition home or self-care (01) ==
LOC: C.LABPBG 14:13
PROVIDERS: ATTEND Internal Medicine Rheumatology
DX: Z87.81 Personal history of (healed) traumatic fracture (principal); M32.9 Systemic lupus erythematosus, unspecified; M06.9 Rheumatoid arthritis, unspecified; M81.0 Age-related osteoporosis without current pathological fracture

== ENCOUNTER → 2017-12-30 | Outpatient (CLI) | payer OTHER | END | disposition home or self-care (01) | LOC: C.LABPBG 08:30 | PROVIDERS: ATTEND Internal Medicine Rheumatology | DX: M32.9 Systemic lupus erythematosus, unspecified (principal); M06.9 Rheumatoid arthritis, unspecified; M81.0 Age-related osteoporosis without current pathological fracture; Z87.81 Personal history of (healed) traumatic fracture ==